=== PATIENT | male | born 1955 | race Caucasian/White ===

== ENCOUNTER → 2019-12-30 14:49 | Outpatient (BNVA) | payer MEDICARE, MEDICAID, SELFPAY | PROVIDERS: PCP Internal Medicine; Referring Provider Internal Medicine; Visit Provider Internal Medicine Cardiovascular Disease | DX: Z76.89 Persons encountering health services in other specified circumstances (principal) ==

== ENCOUNTER → 2020-01-05 20:19 | Outpatient (REF) | payer MEDICARE, MEDICAID, SELFPAY | LOC: HO.SL 20:19 | PROVIDERS: Visit Provider Internal Medicine | DX: G47.30 Sleep apnea, unspecified (principal); G47.19 Other hypersomnia | CPT/HCPCS: 95810 ==

== ENCOUNTER → 2020-01-15 12:56 | Outpatient (BNVA) | payer MEDICARE, MEDICAID, OTHER, SELFPAY | PROVIDERS: PCP Internal Medicine; Visit Provider Internal Medicine Cardiovascular Disease | DX: R42 Dizziness and giddiness (principal); I11.0 Hypertensive heart disease with heart failure; I50.814 Right heart failure due to left heart failure; I50.30 Unspecified diastolic (congestive) heart failure; I25.10 Atherosclerotic heart disease of native coronary artery without angina pectoris; I48.0 Paroxysmal atrial fibrillation; G47.30 Sleep apnea, unspecified; Z95.2 Presence of prosthetic heart valve; Z79.01 Long term (current) use of anticoagulants; Z79.82 Long term (current) use of aspirin; Z79.899 Other long term (current) drug therapy | CPT/HCPCS: 93005; 99212 ==

== ENCOUNTER 2020-01-26 14:30 | Outpatient (REF) | payer MEDICARE, MEDICAID, SELFPAY ==
[2020-01-26 15:30] LABS: Anion Gap 11 (12-20); Blood Urea Nitrogen 17 mg/dL (9-16); Calcium 8.6 mg/dL (8.4-10.2); Carbon Dioxide 33 mmol/L (22-29); Chloride 99 mmol/L (96-108); Estimated Glomerular Filt Rate > 60; Glucose Random 128 mg/dL (60-115); Potassium 3.9 mmol/l (3.3-5.1); Sodium 139 mmol/L (135-145)
[2020-01-26 15:37] LABS: B Type Natriuretic Peptide 86 pg/mL (<100)
== END 2020-01-26 14:31 | disposition home or self-care (01) ==
LOC: HO.LAB 14:30
PROVIDERS: PCP Internal Medicine; Visit Provider Internal Medicine Cardiovascular Disease
DX: I50.30 Unspecified diastolic (congestive) heart failure (principal)
CPT/HCPCS: 80048; 83880

== ENCOUNTER → 2020-02-24 11:01 | Outpatient (BNVA) | payer MEDICARE, MEDICAID, OTHER, SELFPAY | PROVIDERS: PCP Internal Medicine; Referring Provider Internal Medicine; Visit Provider Psychiatry & Neurology Neurology | DX: G47.33 Obstructive sleep apnea (adult) (pediatric) (principal); Z99.89 Dependence on other enabling machines and devices | CPT/HCPCS: Q3014 ==

== ENCOUNTER 2020-03-16 12:59 | Outpatient (REF) | payer MEDICARE, MEDICAID, SELFPAY ==
[2020-03-16 14:38] LABS: Hematocrit 42.8 % (42-52); Hemoglobin 14.1 g/dl (14.0-18.0); Mean Corpuscular HGB Conc 32.9 g/dl (31.0-36.0); Mean Corpuscular Hemoglobin 29.3 pg (27.0-33.0); Mean Platelet Volume 10.7 fL (9.4-12.4); Platelet Count 225 X10*3/uL (160-400); Red Blood Count 4.81 X10*6/uL (4.60-5.80); Red Cell Distribution Width 14.5 % (11.0-16.0)
[2020-03-16 15:08] LABS: Anion Gap 13 (12-20); Blood Urea Nitrogen 15 mg/dL (9-16); Calcium 8.8 mg/dL (8.4-10.2); Carbon Dioxide 33 mmol/L (22-29); Chloride 102 mmol/L (96-108); Estimated Glomerular Filt Rate > 60; Glucose Random 127 mg/dL (60-115); Potassium 4.2 mmol/l (3.3-5.1); Sodium 144 mmol/L (135-145)
[2020-03-16 15:10] LABS: B Type Natriuretic Peptide 124 pg/mL (<100)
== END 2020-03-16 13:00 | disposition home or self-care (01) ==
LOC: HO.LAB 12:59
PROVIDERS: PCP Internal Medicine; Visit Provider Internal Medicine Cardiovascular Disease
DX: R42 Dizziness and giddiness (principal); I50.814 Right heart failure due to left heart failure; I48.0 Paroxysmal atrial fibrillation; I25.10 Atherosclerotic heart disease of native coronary artery without angina pectoris; E66.01 Morbid (severe) obesity due to excess calories; Z68.43 Body mass index [BMI] 50.0-59.9, adult; Z79.01 Long term (current) use of anticoagulants; Z79.899 Other long term (current) drug therapy; Z95.2 Presence of prosthetic heart valve
CPT/HCPCS: 36415; 80048; 83880; 85027; 93005; 99212

== ENCOUNTER → 2020-04-27 10:35 | Outpatient (BNVA) | payer MEDICARE, MEDICAID, OTHER, SELFPAY | PROVIDERS: PCP Internal Medicine; Visit Provider Psychiatry & Neurology Neurology | DX: Z76.89 Persons encountering health services in other specified circumstances (principal) | CPT/HCPCS: Q3014 ==

== ENCOUNTER → 2020-06-08 10:43 | Outpatient (BNVA) | payer MEDICARE, MEDICAID, SELFPAY | PROVIDERS: PCP Internal Medicine; Visit Provider Psychiatry & Neurology Neurology | DX: G47.33 Obstructive sleep apnea (adult) (pediatric) (principal); I50.30 Unspecified diastolic (congestive) heart failure; I25.10 Atherosclerotic heart disease of native coronary artery without angina pectoris; I11.0 Hypertensive heart disease with heart failure; I50.814 Right heart failure due to left heart failure; I48.0 Paroxysmal atrial fibrillation; E78.5 Hyperlipidemia, unspecified; E66.01 Morbid (severe) obesity due to excess calories; Z95.1 Presence of aortocoronary bypass graft; Z95.2 Presence of prosthetic heart valve; Z98.890 Other specified postprocedural states; Z99.89 Dependence on other enabling machines and devices | CPT/HCPCS: Q3014 ==

== ENCOUNTER → 2020-08-17 10:24 | Outpatient (BNVA) | payer MEDICARE, MEDICAID, SELFPAY | PROVIDERS: PCP Internal Medicine; Visit Provider Psychiatry & Neurology Neurology | CPT/HCPCS: Q3014 ==

== ENCOUNTER → 2021-03-10 11:25 | Outpatient (BNVA) | payer MEDICARE, MEDICAID, SELFPAY | PROVIDERS: PCP Student in an Organized Health Care Education/Training Program; Visit Provider Surgery Vascular Surgery | DX: I83.11 Varicose veins of right lower extremity with inflammation (principal); I89.0 Lymphedema, not elsewhere classified | CPT/HCPCS: 99202 ==

== ENCOUNTER 2021-03-30 13:06 | Outpatient (REF) | payer MEDICARE, MEDICAID, SELFPAY ==
--- NOTE | ~2021-03-30 | US_ITS ---
EXAMINATION: US LOWER EXTREMITY VENOUS (REFLUX EXAM), BILATERAL CLINICAL INDICATION: This is a 65-year-old male with a history of right great saphenous vein stripping. Venous insufficiency. COMPARISON: None. TECHNIQUE: Color flow triplex imaging and compression Doppler was performed to evaluate both the deep and the superficial systems bilaterally. To evaluate the superficial system, the examination was performed in the upright position. Color-flow Doppler ultrasound and compression ultrasound were utilized. In addition, maneuvers were utilized to demonstrate reflux. FINDINGS: 1. DEEP VENOUS ULTRASOUND OF THE RIGHT LOWER EXTREMITY: Common Femoral Vein: Compressible, normal respiratory variation and augmented flow. Femoral vein: Compressible, normal color flow and augmentation. Popliteal Vein: Compressible, normal augmentation. Deep Reflux: There is no evidence of reflux in the deep system in either the common femoral vein or the popliteal vein. There is no evidence of a Vigil's cyst. 2. SUPERFICIAL ULTRASOUND WITH DOPPLER OF RIGHT LOWER EXTREMITY: GREAT SAPHENOUS VEIN: Absent consistent with the known removal of the right great saphenous vein. GSV REFLUX: No evidence of reflux. DUPLICATED GREAT SAPHENOUS VEIN: There is a 0.7 cm duplicated lateral great saphenous vein without reflux. SMALL SAPHENOUS VEIN: Proximal: 0.6 cm Distal: 0.5 cm SSV REFLUX: No evidence of reflux. VEIN OF GIACOMINI: None Imaged. PERFORATORS: 0.4 cm mid calf perforators are seen without reflux. VARICOSITIES: None Imaged 3. DEEP VENOUS ULTRASOUND OF THE LEFT LOWER EXTREMITY: Common Femoral Vein: Compressible, normal respiratory variation and augmented flow. Femoral Vein: Compressible, normal color flow and augmentation. Popliteal Vein: Compressible, normal augmentation. Deep Reflux: There is no evidence of reflux in the deep system in either the common femoral vein or the popliteal vein. There is no evidence of a Vigil's cyst. 4. SUPERFICIAL ULTRASOUND WITH DOPPLER OF LEFT LOWER EXTREMITY: GREAT SAPHENOUS VEIN: Saphenofemoral Junction: 0.8 cm Mid Thigh: 0.4 cm Above Knee: 0.4 cm Below Knee: 0.3 cm Mid Calf: 0.4 cm Ankle: 0.4 cm GSV REFLUX: No evidence of reflux. DUPLICATED GREAT SAPHENOUS VEIN: There is a 0.2 cm duplicated lateral great saphenous vein without reflux. SMALL SAPHENOUS VEIN: Proximal: 0.2 cm Distal: 0.2 cm SSV REFLUX: No evidence of reflux. VEIN OF GIACOMINI: None Imaged. PERFORATORS: There are 0.3 cm mid thigh perforators without reflux. VARICOSITIES: There are 0.3 cm proximal thigh and knee varicose veins without reflux. US/US venous duplex LE BI IMPRESSION: 1. The right great saphenous vein is absent consistent with the previous stripping. 2. There is a duplicated right lateral great saphenous vein without reflux. 3. There is a right small saphenous vein without reflux. 4. There is a patent left great saphenous vein without reflux. 5. There is a patent duplicated left lateral great saphenous vein without reflux. 6. There is a patent left small saphenous vein without evidence of reflux. 7. There are 0.3 cm left leg varicose veins as described without reflux.
== END 2021-03-30 13:07 | disposition home or self-care (01) ==
LOC: HO.US 13:06
PROVIDERS: Visit Provider Surgery Vascular Surgery
DX: I83.11 Varicose veins of right lower extremity with inflammation (principal)
CPT/HCPCS: 93970

== ENCOUNTER → 2021-04-07 14:03 | Outpatient (BNVA) | payer MEDICARE, MEDICAID, SELFPAY | PROVIDERS: PCP Internal Medicine; Visit Provider Surgery Vascular Surgery | DX: I89.0 Lymphedema, not elsewhere classified (principal); I83.11 Varicose veins of right lower extremity with inflammation | CPT/HCPCS: 99212 ==

== ENCOUNTER → 2021-05-10 14:57 | Outpatient (BNVA) | payer MEDICARE, MEDICAID, SELFPAY | PROVIDERS: PCP Internal Medicine; Referring Provider Internal Medicine; Visit Provider Psychiatry & Neurology Neurology | DX: G47.33 Obstructive sleep apnea (adult) (pediatric) (principal); G47.50 Parasomnia, unspecified; E66.01 Morbid (severe) obesity due to excess calories; Z68.43 Body mass index [BMI] 50.0-59.9, adult | CPT/HCPCS: 99212 ==

== ENCOUNTER → 2021-05-19 14:46 | Outpatient (REF) | payer MEDICARE, MEDICAID, SELFPAY ==
--- NOTE | 2021-05-19 14:51 | CA_ITS ---
Transthoracic Echocardiogram Patient (Last, First, Middle): Darwin Iraheta, Gender: Male Date of : 1955 Age: 65 Procedure Date: 05/19/2021 Procedure Type: Transthoracic Echocardiogram Location: OP Height: 177.8 cm Weight: 180.08 kg BSA: 2.79 m2 Heart Rate: bpm BP: 130 / 80 mmHg Vegetable Tester: IAN Referring MD: Delmer Dunlap MD Symptoms: I50.30 UNSPEC CHF Study Quality: Technically Difficult/Contrast Conclusions: - Due to markedly limited image quality, LVEF cannot be quantified. - A bioprosthetic aortic valve is present. Based on gradients, likely normal prosthetic valve function. - There is mild dilatation of the ascending aorta measuring 4.40 cm. Findings Procedure Information Contrast agent, definity, is being given per protocol without apparent complications. Left Ventricle The left ventricle was not well visualized. Normal left ventricular cavity size. There is moderately increased left ventricular wall thickness. Regional wall motion abnormalities can not be excluded due to suboptimal endocardial definition. Diastolic function is normal for age. Due to markedly limited image quality, LVEF cannot be quantified. Right Ventricle The right ventricle was not well visualized. There is mildly decreased right ventricular systolic function. Aortic Valve A bioprosthetic aortic valve is present. The aortic valve was not well visualized. The mean gradient is 8 mmHg. No significant regurgitation. Based on gradients, likely normal prosthetic valve function. Mitral Valve The mitral valve was not well visualized. No significant regurgitation or stenosis. Pulmonic Valve The pulmonic valve was not well visualized. Tricuspid Valve There is trace tricuspid valve regurgitation. The right ventricular systolic pressure may be underestimated. There is no evidence of pulmonary hypertension. Great Vessels The aorta was not well visualized. There is mild dilatation of the ascending aorta measuring 4.40 cm. Venous The inferior vena cava was not well visualized. The inferior vena cava is mildly dilated. Pericardium/Pleural No significant pericardial effusion. Prior Study Comparison No significant change compared to prior study dated: 11/18/2019. Ascending aortic dilatation has been noted before. Measurements 2D Linear Measurements IVSd: 1.32 0.6-0.9/0.6-1.0 cm LVIDd: 5.89 3.9-5.3/4.2-5.9 cm LVIDd Index: 2.11 2.4-3.2/2.2-3.1 cm/m2 LVIDs: 4.25 2.0-3.6 cm LVPWd: 1.40 0.7-1.1 cm LA Diam: 6.10 2.7-3.8/3.0-4.0 cm LAIDs Index: 2.19 1.5-2.3 cm/m2 LV Mass: 451.30 67-162/88-224 g LV Mass Index: 161.76 43-95/49-115 g/m2 LVOT Diam: 2.60 3.0+(-)1.3 cm Mitral Valve MV Pk E: 0.69 MV PK A: 0.64 MV Decel Time: 301.00 E/A: 1.10 E'Lateral: 9.57 E'Medial: 6.96 E/E' Med: 9.90 E/E' Lat: 7.20 PHT: 88.00 MVA PHT: 2.50 Decel [place]: 2.29 Aortic Valve AoV Pk Dano: 1.78 AoV Mn [place]ano: 1.34 AoV VTI: 0.37 AoV Pk Grad: 13.00 Aov Mn Grad: 8.00 DAVIDE Cont.VTI: 2.16 LVOT LVOT Pk [place]ano: 0.60 LVOT Mn [place]: 0.42 LVOT VTI: 0.15 LVOT Pk Grad: 1.00 LVOT Mn Grad: 1.00 LVOT Diam: 2.60 LVOT Area: 5.31 Diastolic Function MV Pk E: 0.69 MV Pk A: 0.64 E/A: 1.10 E'Medial: 6.96 E/E' Med: 9.90 E' Laterial: 9.57 E/E' Lat: 7.20 Right Ventricle TAPSE (mm): 16.50 TVS' Dano: 7.40 Tricuspid Valve TR Pk Dano: 1.15 TR Pk Grad: 5.00 RA Press: 8.00 RVSP: 13.00 Great Vessels Aorta Ao Asc: 4.40 2.1-3.4 cm Updated in Other Vendor System with Status of Final Yonatan Franklin MD electronically signed on 05/21/2021 11:27:55 AM with status of Final
== END ==
LOC: HO.CARD 14:46
PROVIDERS: PCP Internal Medicine; Visit Provider Internal Medicine
DX: I50.30 Unspecified diastolic (congestive) heart failure (principal)
CPT/HCPCS: 93306; Q9957

== ENCOUNTER → 2021-06-23 13:58 | Outpatient (REF) | payer MEDICARE, MEDICAID, SELFPAY ==
--- NOTE | 2021-06-23 14:04 | HM_ITS ---
* Total monitoring time 3 days and 10 hours. * Underlying rhythm is probably sinus. However, P waves are very subtle. Average rate 56/Min. Range 48 to 90/Min. * No atrial fibrillation or flutter or AV blocks or pauses (some strips have a lot of artifact to say definitively). * Rare supraventricular ectopy with minimal burden. * Occasional ventricular ectopy; 2 morphologies and 6 couplets; overall burden 1%. * No patient events. MTDD
== END ==
LOC: HO.CARD 13:58
PROVIDERS: PCP Internal Medicine; Visit Provider Internal Medicine Cardiovascular Disease
DX: I48.0 Paroxysmal atrial fibrillation (principal); I50.30 Unspecified diastolic (congestive) heart failure; R42 Dizziness and giddiness
CPT/HCPCS: 93242

== ENCOUNTER 2021-07-25 14:35 | Outpatient (REF) | payer MEDICARE, MEDICAID, SELFPAY ==
--- NOTE | ~2021-07-25 | XR_ITS ---
EXAMINATION: XR CHEST CLINICAL INFORMATION: I48.0 - Paroxysmal atrial fibrillation COMPARISON: None TECHNIQUE: 2 frontal views and 2 lateral views of the chest are obtained. FINDINGS: There is some mild underpenetration of the x-ray being, possibly related to patient body habitus. There has been prior median sternotomy with prosthetic cardiac valve, likely aortic. The cardiopericardial silhouette is mildly enlarged. There is even distribution vascularity which may suggest elevated pulmonary venous pressures. There is no overt congestion. No airspace consolidation or groundglass opacity. No effusion. The costophrenic sulci are clear. The hilar and mediastinal contours are unremarkable. There are multilevel degenerative changes thoracic spine with some loss of height at to lower adjacent thoracic vertebral bodies, possibly chronic given the bridging anterior osteophytes. XR/XR chest 2V IMPRESSION: -Prior median sternotomy with prosthetic cardiac valve, likely aortic. -Mild enlargement cardiopericardial silhouette. Even distribution vascularity. -No airspace consolidation, groundglass opacity, or effusion. -Multilevel degenerative changes thoracic spine. Loss of height lower thoracic vertebral bodies, possibly chronic given associated bridging anterior osteophytes.
[2021-07-25 16:08] LABS: Hematocrit 45.1 % (42.0-52.0); Hemoglobin 14.7 g/dl (14.0-18.0); Mean Corpuscular HGB Conc 32.6 g/dl (31.0-36.0); Mean Corpuscular Hemoglobin 29.3 pg (27.0-33.0); Mean Platelet Volume 11.1 fL (9.4-12.4); Platelet Count 196 X10*3/uL (160-400); Red Blood Count 5.01 X10*6/uL (4.60-5.80); Red Cell Distribution Width 13.5 % (11.0-16.0); White Blood Count 5.5 X10*3/uL (4.8-10.8)
[2021-07-25 16:31] LABS: Alanine Aminotransferase 32 U/L (0-40); Albumin Level 4.1 g/dL (3.5-5.0); Alkaline Phosphatase 122 U/L (39-117); Anion Gap 14 (12-20); Aspartate Amino Transferase 42 U/L (5-37); Bilirubin Direct 0.4 mg/dL (0.0-0.5); Bilirubin Total 1.2 mg/dL (0.0-1.0); Blood Urea Nitrogen 17 mg/dL (9-16); Calcium 9.3 mg/dL (8.4-10.2); Carbon Dioxide 29 mmol/L (22-29); Chloride 102 mmol/L (96-108); Estimated Glomerular Filt Rate > 60; Glucose Random 116 mg/dL (60-115); Magnesium 2.1 mg/dL (1.6-2.6); Potassium 4.3 mmol/L (3.3-5.1); Sodium 141 mmol/L (135-145); Total Protein 6.8 g/dL (6.5-8.0)
[2021-07-25 16:34] LABS: B Type Natriuretic Peptide 165 pg/mL (<100)
[2021-07-25 16:52] LABS: TSH reflex Free T4 15.74 uIU/mL (0.32-4.0)
[2021-07-25 17:52] LABS: Free T4 (Free Thyroxine) 0.86 ng/dL (0.71-1.85)
== END 2021-07-25 14:36 | disposition home or self-care (01) ==
LOC: HO.LAB 14:35
PROVIDERS: PCP Internal Medicine; Referring Provider Internal Medicine; Visit Provider Internal Medicine Cardiovascular Disease
DX: I48.0 Paroxysmal atrial fibrillation (principal); I50.30 Unspecified diastolic (congestive) heart failure
CPT/HCPCS: 36415; 71046; 80048; 80076; 83735; 83880; 84439; 84443; 85027; 93005; 99212

== ENCOUNTER 2021-12-02 13:11 | Outpatient (REF) | payer MEDICARE, MEDICAID, SELFPAY ==
--- NOTE | ~2021-12-02 | XR_ITS ---
EXAMINATION: XR CHEST CLINICAL INFORMATION: Heart failure. COMPARISON: Chest x-ray 05/25/2021. TECHNIQUE: 2 views of the chest were obtained. FINDINGS: The lungs are well expanded and clear of acute process. The heart size is enlarged. Pulmonary vascularity is prominent without congestion. There are median sternotomy sutures from previous intervention. There is a cardiac valve prosthesis, likely aortic. There is mild ventral spondylosis throughout the dorsal spine. XR/XR chest 2V IMPRESSION: Mild cardiomegaly with prominent pulmonary vascularity but no congestion. No major change from 12/02/2021.
[2021-12-02 13:42] LABS: MANUAL DIFF FLAG NO
[2021-12-02 14:36] LABS: Basophils Percent Auto 0.4 % (0-2); Eosinophils Absolute Auto 0.1 X10*3/uL (0.0-0.4); Eosinophils Percent Auto 1.8 % (0-4); Hematocrit 46.5 % (42.0-52.0); Hemoglobin 14.9 g/dl (14.0-18.0); Imm Gran Abs Auto 0.04 X10*3/uL (0.00-0.03); Imm Gran Pct Auto 0.8 % (0.0-0.4); Lymphocytes Absolute Auto 0.8 X10*3/uL (1.2-4.9); Lymphocytes Percent Auto 16.8 % (20-40); Mean Corpuscular Hemoglobin 30.3 pg (27.0-33.0); Mean Corpuscular Volume 94.5 fL (80.0-98.0); Mean Platelet Volume 10.9 fL (9.4-12.4); Monocytes Absolute Auto 0.5 X10*3/uL (0.1-1.2); Monocytes Percent Auto 9.6 % (2-11); Neutrophils Absolute Auto 3.5 x10*3/uL (2.0-8.3); Neutrophils Percent Auto 70.6 % (45-73); Platelet Count 202 X10*3/uL (160-400); Red Blood Count 4.92 X10*6/uL (4.60-5.80); Red Cell Distribution Width 13.9 % (11.0-16.0)
[2021-12-02 15:02] LABS: Anion Gap 15 (12-20); Blood Urea Nitrogen 19 mg/dL (9-16); Calcium 9.1 mg/dL (8.4-10.2); Carbon Dioxide 37 mmol/L (22-29); Chloride 98 mmol/L (96-108); Estimated Glomerular Filt Rate 53; Glucose Random 98 mg/dL (60-115); Potassium 4.6 mmol/L (3.3-5.1); Sodium 145 mmol/L (135-145)
[2021-12-02 15:22] LABS: B Type Natriuretic Peptide 97 pg/mL (<100)
== END 2021-12-02 13:12 | disposition home or self-care (01) ==
LOC: HO.LAB 13:11
PROVIDERS: Absent Provider Internal Medicine; Visit Provider Internal Medicine Cardiovascular Disease
DX: I48.0 Paroxysmal atrial fibrillation (principal); I50.30 Unspecified diastolic (congestive) heart failure; R42 Dizziness and giddiness
CPT/HCPCS: 36415; 71046; 80048; 83880; 85025

== ENCOUNTER → 2022-01-23 14:58 | Outpatient (BNVA) | payer MEDICARE, MEDICAID, SELFPAY | PROVIDERS: PCP Internal Medicine; Referring Provider Internal Medicine; Visit Provider Internal Medicine Cardiovascular Disease | DX: I50.30 Unspecified diastolic (congestive) heart failure (principal); I48.0 Paroxysmal atrial fibrillation; I25.10 Atherosclerotic heart disease of native coronary artery without angina pectoris; Z95.2 Presence of prosthetic heart valve | CPT/HCPCS: 93005; 99212 ==

== ENCOUNTER → 2022-06-27 15:57 | Outpatient (REF) | payer MEDICARE, MEDICAID, SELFPAY ==
--- NOTE | 2022-06-27 16:03 | CA_ITS ---
Transthoracic Echocardiogram Patient (Last, First, Middle): Darwin Iraheta, Gender: Male Date of : 1955 Age: 66 Procedure Date: 06/27/2022 Procedure Type: Transthoracic Echocardiogram Location: OP Height: 175.26 cm Weight: 181.44 kg BSA: 2.77 m2 Heart Rate: bpm BP: 130 / 68 mmHg Trousseau Consultant: CP/VH Referring MD: Jj Moreno MD Symptoms: I50.30 - Unspecified diastolic (congestive) heart failure Study Quality: Technically Difficult, contrast ECG Rhythm: Sinus Conclusions: - LVEF difficult to assess, but probably >50%. - Moderately increased right ventricular cavity size. - Probable bioprosthetic aortic valve based on appearance and prior documentation. Slightly increased mean gradient across the valve compared to prior study. Could have some degenerative changes, but overall normal function. Findings Procedure Information Contrast agent, definity, is being given per protocol without apparent complications. The study quality is limited by patients body habitus. Left Ventricle Normal left ventricular cavity size. There is moderately increased left ventricular wall thickness. Regional wall motion abnormalities can not be excluded due to suboptimal endocardial definition. Evidence suggests grade II (moderate) diastolic dysfunction. LVEF difficult to assess, but probably >50%. Right Ventricle The right ventricle was not well visualized. Moderately increased right ventricular cavity size. Atria The left atrium is severely dilated. The right atrium was not well visualized. Aortic Valve The aortic valve was not well visualized. The mean gradient is 12 mmHg. There is no aortic valve regurgitation. Probable bioprosthetic aortic valve based on appearance and prior documentation. Slightly increased mean gradient across the valve compared to prior study. Could have some degenerative changes, but overall normal function. Mitral Valve The mitral valve was not well visualized. There is no mitral valve regurgitation. Pulmonic Valve The pulmonic valve is likely normal. Tricuspid Valve The tricuspid valve was not well visualized. There is trace tricuspid valve regurgitation. Tricuspid regurgitation envelope is inadequate for calculation of right ventricular systolic pressure. Great Vessels The aorta was not well visualized. Venous The inferior vena cava was not well visualized. Pericardium/Pleural There is no evidence of pericardial effusion. Prior Study Comparison Changes noted compared to prior study dated: 05/19/2021. Slight increase in gradient across the prosthetic aortic valve. Measurements 2D Linear Measurements IVSd: 1.44 0.6-0.9/0.6-1.0 cm LVIDd: 5.24 3.9-5.3/4.2-5.9 cm LVIDd Index: 1.89 2.4-3.2/2.2-3.1 cm/m2 LVIDs: 4.10 2.0-3.6 cm LVPWd: 1.28 0.7-1.1 cm LA Diam: 5.30 2.7-3.8/3.0-4.0 cm LAIDs Index: 1.91 1.5-2.3 cm/m2 LV Mass: 374.90 67-162/88-224 g LV Mass Index: 135.34 43-95/49-115 g/m2 LVOT Diam: 2.60 3.0+(-)1.3 cm 2D Systolic Function EF 4C: 65.80 >55% EF 2C: 46.30 >55% EF BiP: 60.20 >55% Mitral Valve MV Pk E: 0.88 MV PK A: 0.63 MV Decel Time: 273.00 E/A: 1.40 E'Lateral: 9.68 E'Medial: 4.46 E/E' Med: 19.60 E/E' Lat: 9.00 PHT: 80.00 MVA PHT: 2.75 Decel [place]: 3.21 Aortic Valve AoV Pk Dano: 2.31 AoV Mn Dano: 1.61 AoV VTI: 0.54 AoV Pk Grad: 21.00 Aov Mn Grad: 12.00 DAVIDE Cont.VTI: 1.57 LVOT LVOT Pk Dano: 0.62 LVOT Mn Dano: 0.46 LVOT VTI: 0.16 LVOT Pk Grad: 2.00 LVOT Mn Grad: 1.00 LVOT Diam: 2.60 LVOT Area: 5.31 Diastolic Function MV Pk E: 0.88 MV Pk A: 0.63 E/A: 1.40 E'Medial: 4.46 E/E' Med: 19.60 E' Laterial: 9.68 E/E' Lat: 9.00 Updated in Other Vendor System with Status of Final Yonatan Franklin MD electronically signed on 06/28/2022 12:14:15 PM with status of Final
== END ==
LOC: HO.CARD 15:57
PROVIDERS: PCP Internal Medicine; Visit Provider Internal Medicine Cardiovascular Disease
DX: I50.30 Unspecified diastolic (congestive) heart failure (principal)
CPT/HCPCS: 93306; Q9957

== ENCOUNTER → 2022-07-25 14:24 | Outpatient (BNVA) | payer MEDICARE, MEDICAID, SELFPAY | PROVIDERS: PCP Internal Medicine; Referring Provider Internal Medicine; Visit Provider Internal Medicine Cardiovascular Disease | DX: I48.0 Paroxysmal atrial fibrillation (principal); I50.30 Unspecified diastolic (congestive) heart failure; I25.10 Atherosclerotic heart disease of native coronary artery without angina pectoris; Z95.2 Presence of prosthetic heart valve; Z79.82 Long term (current) use of aspirin; Z79.899 Other long term (current) drug therapy | CPT/HCPCS: 99212 ==

== ENCOUNTER 2022-11-16 11:23 | Outpatient (REF) | payer MEDICARE, MEDICAID, SELFPAY ==
[2022-11-16 14:47] LABS: Anion Gap 13 (12-20); Blood Urea Nitrogen 15 mg/dL (9-16); Calcium 9.5 mg/dL (8.4-10.2); Carbon Dioxide 39 mmol/L (22-29); Chloride 96 mmol/L (96-108); Estimated Glomerular Filt Rate > 60; Glucose Fasting 123 mg/dL (60-99); Potassium 3.9 mmol/L (3.3-5.1); Sodium 144 mmol/L (135-145)
[2022-11-16 15:08] LABS: TSH reflex Free T4 0.94 uIU/mL (0.32-4.0)
== END 2022-11-16 11:24 | disposition home or self-care (01) ==
LOC: CF 11:23
PROVIDERS: Visit Provider Internal Medicine
DX: E03.8 Other specified hypothyroidism (principal); I50.32 Chronic diastolic (congestive) heart failure
CPT/HCPCS: 36415; 80048; 84443

== ENCOUNTER 2023-04-02 14:21 | Outpatient (REF) | payer MEDICARE, MEDICAID, SELFPAY ==
--- NOTE | ~2023-04-02 | XR_ITS ---
EXAMINATION: XR CHEST CLINICAL INFORMATION: Paroxysmal atrial fibrillation COMPARISON: 12/02/2021 TECHNIQUE: 2 views of the chest were obtained. FINDINGS: Heart size borderline with normal caliber pulmonary vessels. No congestive change. Minimal areas of atelectasis seen in the left midlung but no suspicious consolidations. No evidence for congestive failure.. Prosthetic cardiac valve noted. Sternal wires noted. XR/XR chest 2V IMPRESSION: No active disease. No evidence for congestive failure.
[2023-04-02 16:15] LABS: Hematocrit 34.9 % (42.0-52.0); Hemoglobin 10.8 g/dl (14.0-18.0); Mean Corpuscular HGB Conc 30.9 g/dl (31.0-36.0); Mean Corpuscular Hemoglobin 28.2 pg (27.0-33.0); Mean Corpuscular Volume 91.1 fL (80.0-98.0); Mean Platelet Volume 11.2 fL (9.4-12.4); Platelet Count 164 X10*3/uL (160-400); Red Blood Count 3.83 X10*6/uL (4.60-5.80); Red Cell Distribution Width 13.3 % (11.0-16.0); White Blood Count 4.7 X10*3/uL (4.8-10.8)
[2023-04-02 16:44] LABS: B Type Natriuretic Peptide 101 pg/mL (<100)
[2023-04-02 16:48] LABS: Alanine Aminotransferase 11 U/L (0-40); Albumin Level 3.9 g/dL (3.5-5.0); Alkaline Phosphatase 102 U/L (39-117); Anion Gap 11 (12-20); Aspartate Amino Transferase 20 U/L (5-37); Bilirubin Direct 0.2 mg/dL (0.0-0.5); Bilirubin Total 0.7 mg/dL (0.0-1.0); Blood Urea Nitrogen 16 mg/dL (9-16); Calcium 9.2 mg/dL (8.4-10.2); Carbon Dioxide 39 mmol/L (22-29); Chloride 98 mmol/L (96-108); Estimated Glomerular Filt Rate > 60; Glucose Random 108 mg/dL (60-115); Magnesium 2.2 mg/dL (1.6-2.6); Potassium 3.9 mmol/L (3.3-5.1); Sodium 144 mmol/L (135-145); Total Protein 6.8 g/dL (6.5-8.0)
[2023-04-02 17:04] LABS: TSH reflex Free T4 0.16 uIU/mL (0.32-4.0)
[2023-04-02 18:06] LABS: Free T4 (Free Thyroxine) 1.37 ng/dL (0.71-1.85)
== END 2023-04-02 14:22 | disposition home or self-care (01) ==
LOC: HO.LAB 14:21
PROVIDERS: PCP Internal Medicine; Visit Provider Internal Medicine Cardiovascular Disease
DX: I50.30 Unspecified diastolic (congestive) heart failure (principal); I48.0 Paroxysmal atrial fibrillation; I25.10 Atherosclerotic heart disease of native coronary artery without angina pectoris; Z95.2 Presence of prosthetic heart valve; Z79.899 Other long term (current) drug therapy
CPT/HCPCS: 36415; 71046; 80048; 80076; 83735; 83880; 84439; 84443; 85027; 93005; 99212

== ENCOUNTER 2023-04-02 14:21 | Outpatient (AMB) | payer MEDICARE, MEDICAID, SELFPAY ==
[2023-04-02 14:36] VITALS: BP 122/70; PULSE 60
--- NOTE | 2023-04-02 14:36 | MHC.OFFVIS ---
Intake Vital Signs 04/02/23 14:36 Height 5 ft 10 in BP 122/70 Blood Pressure Location Lt brachial Position Sitting Pulse 60 Intake Visit Reasons: 6 month follow-up Intake Note: 6 month follow-up with ekg c/o chest pain at at times and numbness in left hand Teacher Tutor Required: No Motor Vehicle Licence Examiner: Motor Vehicle Licence Examiner Present Accompanied by: Spouse Allergies No Known Allergies [No Known Allergies*] Allergy (Verified 05/10/21 15:28) Medication List - Last Reconciled 04/02/23 by Jj Moreno MD amiodarone 200 mg PO DAILY aspirin 81 mg PO QAM atorvastatin 80 mg PO DAILY ferrous sulfate 325 mg PO QAM lisinopril 5 mg PO QAM 90 days metoprolol succinate ER 25 mg PO QAM multivitamin with folic acid 400 mcg (Daily-Abigail (with folic acid)) 1 tab PO DAILY pantoprazole 40 mg PO DAILY paroxetine HCl 20 mg PO DAILY potassium chloride ER 30 mEq PO torsemide 40 mg (2 x 20 mg) PO BID 90 days HPI HPI Comments History of Present Illness Details Darwin comes for follow-up, accompanied by his . He has had poor lifestyle choices recently. Has increase his salt intake. Also has not been exercising much and has increased his dietary intake of food and has gained weight. He is also has increased leg swelling. He has also not using his CPAP regularly. He is taking his current medications although has notice that his leg swelling has increased significantly. He has been taking his torsemide 40 mg b.i.d. on a regular basis. Denies any chest pain. [facility] Medical History Parasomnia Hyperlipidemia HTN (hypertension) STACEY (obstructive sleep apnea) Right heart failure (secondary to left heart failure) Paroxysmal atrial fibrillation Morbid obesity (HFpEF) heart failure with preserved ejection fraction CAD (coronary artery disease) Surgical History S/P AVR Hx of CABG (~2017) Hx of cardiac cath (~2003) History of surgery on arm (~2017) Family History Father CVD (cardiovascular disease) Mother Cancer Social History Household Members: Spouse Alcohol intake: current Alcohol intake frequency: does not drink Patient Tobacco Use Status: Former Tobacco user Current occupational status: retired and disabled Review of Systems Const Denies chills, Denies fatigue, Denies fever(s), Denies frequent falls, Denies weakness, Denies weight gain and Denies weight loss ENT Denies dizziness Card Denies chest pain, Denies leg edema, Denies lightheadedness, Denies palpitations, Denies dyspnea, Denies dyspnea on exertion, Denies orthopnea and Denies other (loss of consciousness) Resp Denies cough, Denies dyspnea and Denies dyspnea on exertion GI Denies hematochezia and Denies change in stool character Musc Denies abnormal gait, Denies muscle weakness, Denies numbness, Denies radiating pain into limb and Denies tingling Neuro Denies abnormal gait, Denies dizziness, Denies frequent falls, Denies numbness, Denies tingling and Denies weakness Endo Denies fatigue and Denies palpitations Physical Exam Vital Signs: Last Vital Signs Pulse 60 04/02/23 14:36 BP 122/70 04/02/23 14:36 Const General: cooperative, comfortable, no acute distress, awake, Physically active, poor hygiene and tired appearing Nutritional Appearance: obese morbidly obese Orientation/consciousness: patient oriented x3 Limitations: wheelchair HEENT Head: Yes normocephalic and Yes atraumatic Neck Neck: Yes no meningeal signs, Yes trachea midline and Yes JVD Chest Chest palpation & inspection: normal inspection of the chest Resp Effort & Inspection: normal respiratory effort Auscultation: clear to auscultation bilaterally and diminished lung sounds Cardio Jugular venous distension: JVD Palpation: normal PMI Rate: regular rate Rhythm: regular rhythm Heart sounds: S1 normal heart sound present, S2 normal heart sound present and Other heart sounds present (S4 present) Skin General skin exam: no rashes or lesions noted and ecchymosis Neuro General: patient oriented x3, no meningeal signs and no focal motor deficits Extrem General: No clubbing, No cyanosis, Yes edema (Three to 4+) and Yes venous stasis dermatitis Psych Appearance: grossly normal Office Procedures EKG Details: EKG shows normal sinus rhythm with low-amplitude P waves consistent with atrial myopathy with first-degree AV block with ST T wave changes showed nonspecific and suggestive of repolarization abnormality [id number], Complete Assessment & Plan Assessment & Plan (1) (HFpEF) heart failure with preserved ejection fraction: Code(s): I50.30 - Unspecified diastolic (congestive) heart failure Plan: Heart failure preserved ejection fraction high doses of diuretics at this point time with worsening right heart failure syndrome with clinical evidence of significant fluid overload. Management of this was discussed. He has been making some poor lifestyle choices with increased salt intake and also increase dietary food intake and has gained weight. However he appears to be fluid overloaded and risk of this was discussed with recurrent hospitalization. Goals of therapy were discussed. Will add metolazone 2.5 mg p.r.n. to his regimen to assist with diuresis and weight loss. May have been developing cardiorenal syndrome as well. Will obtain blood work today. Importance of dietary modification as well as current therapy was discussed. Continue CPAP therapy. Continue aggressive blood pressure control. Aggressive weight loss program and increase activity level was also discussed with him. (2) Paroxysmal atrial fibrillation: Code(s): I48.0 - Paroxysmal atrial fibrillation Plan: Paroxysmal atrial fibrillation status post rhythm management amiodarone therapy. Doing well with the same. Continue to monitor for the same. Currently only on aspirin therapy for anticoagulation. High risk for thromboembolic complication was discussed with him. (3) CAD (coronary artery disease): Code(s): I25.10 - Atherosclerotic heart disease of [place] coronary artery without angina pectoris Plan: CAD status post coronary artery bypass grafting with no symptoms suggestive angina although this may be mask because of his reduced exercise capacity. Continue aggressive risk factor modification. Blood pressure is well optimized. Should be on high-intensity statin therapy with target goal LDL closer to 60 mg/dL. (4) S/P AVR: Comment: surgical AVR in 2020 with redo open heart surgery at [facility] for progressive severe congestive heart failure syndrome Code(s): Z95.2 - Presence of prosthetic heart valve Plan: Status post aortic valve replacement with open-heart surgery with redo AVR. Doing well at this point time. Continue SBE prophylaxis. Continue aggressive vascular risk factor modification aspirin therapy. Overall prognosis guarded with his lifestyle choices. This was discussed with him. Greater than 40 minutes was spent in managing his complex care. Orders: Orders Complete Blood Count no Diff 04/02/23 I48.0 - Paroxysmal atrial fibrillation Magnesium 04/02/23 I48.0 - Paroxysmal atrial fibrillation, I50.30 - Unspecified diastolic (congestive) heart failure B Type Natriuretic Peptide 04/02/23 I48.0 - Paroxysmal atrial fibrillation Basic Metabolic Panel 04/02/23 I48.0 - Paroxysmal atrial fibrillation TSH reflex Free T4 04/02/23 I48.0 - Paroxysmal atrial fibrillation Liver Panel 04/02/23 I48.0 - Paroxysmal atrial fibrillation XR chest 2V 04/02/23 I48.0 - Paroxysmal atrial fibrillation Coding Level of Care Code Est Pt Level 5 (87572) Diagnoses (HFpEF) heart failure with preserved ejection fraction I50.30 Paroxysmal atrial fibrillation I48.0 CAD (coronary artery disease) I25.10 S/P AVR Z95.2 CPT Codes EKG - CPT: 68777-[id number], Complete ([id number])
== END 2023-04-02 15:21 | disposition home or self-care (01) ==
PROVIDERS: PCP Internal Medicine; Visit Provider Internal Medicine Cardiovascular Disease
DX: I50.30 Unspecified diastolic (congestive) heart failure (principal); I48.0 Paroxysmal atrial fibrillation; I25.10 Atherosclerotic heart disease of native coronary artery without angina pectoris; Z95.2 Presence of prosthetic heart valve
CPT/HCPCS: 93010; 99215

== ENCOUNTER 2023-10-24 10:18 | Outpatient (AMB) | payer MEDICARE, MEDICAID, SELFPAY ==
[2023-10-24 10:45] VITALS: BP 132/68; PULSE 67; BMI 57.2
--- NOTE | 2023-10-24 10:45 | A.OFFVIS_ITS ---
Vital Signs 10/24/23 10:45 Height 5 ft 10 in Weight 399 lb 0.587 oz BMI 57.2 BP 132/68 Blood Pressure Location Lt brachial Position Sitting Pulse 67 Pulse Source Monitor Intake Visit Reasons: 6 mth f/up Allergies No Known Allergies [No Known Allergies*] Allergy (Verified 05/10/21 15:28) Medication List - Last Reconciled 10/24/23 by Jj Moreno MD amiodarone 200 mg PO DAILY aspirin 81 mg PO QAM atorvastatin 80 mg PO DAILY ferrous sulfate 325 mg PO QAM lisinopril 5 mg PO QAM 90 days metolazone 2.5 mg PO .PRN metoprolol succinate ER 25 mg PO QAM multivitamin with folic acid 400 mcg (Daily-Abigail (with folic acid)) 1 tab PO DAILY pantoprazole 40 mg PO DAILY paroxetine HCl 20 mg PO DAILY potassium chloride ER 30 mEq PO torsemide 40 mg (2 x 20 mg) PO BID HPI Comments Details: Darwin comes for follow-up. He is here for a 6 month follow-up is heart condition. Unfortunately there has been a trend going downward. He said in the last 6 months he has had few falls, that led to injury to his left rib after falling down. He is not very clear as to what happens although he said that he gets wobbly and then blacks out. Does not remember falling. Not sure if he had any head injury. He was then brought to the emergency room and as per the put him in a rehab center in [place] which was very poor. Unfortunately not sure if he has syncopal episodes and gets orthostatic lightheadedness. This history is very difficult to obtain from him. He does take his diuretics torsemide at 40 mg b.i.d. but does not want to take metolazone due to excessive diuresis. Continues to have leg edema although as per the the leg edema improves when he is laying in bed and raises his leg and gets worse when he is in leg dependent position. Unfortunately he does not use his CPAP as he says that he gets vivid nightmares when he uses CPAP in the result has significant daytime somnolence as per the . Although he continues to have good food intake and as a result has gained a lot of weight. Not sure if this partially is fluid weight gain. This is difficult to assess in his case. Denies any clear orthopnea. Denies any chest pain. Denies any prolonged palpitation irregular heartbeat. No bleeding issues or neurologic events PFSH Medical History Parasomnia Hyperlipidemia HTN (hypertension) STACEY (obstructive sleep apnea) Right heart failure (secondary to left heart failure) Paroxysmal atrial fibrillation Morbid obesity (HFpEF) heart failure with preserved ejection fraction CAD (coronary artery disease) Surgical History S/P AVR Hx of CABG (~2017) Hx of cardiac cath (~2003) History of surgery on arm (~2017) Family History Father CVD (cardiovascular disease) Mother Cancer Social History Household Members: Spouse Alcohol intake: current Alcohol intake frequency: does not drink Patient Tobacco Use Status: Former Tobacco user Current occupational status: retired and disabled Review of Systems Const Denies weakness ENT Denies dizziness Card Denies chest pain, Denies chest pain with activity, Denies syncope, Denies rapid heart rate, Denies pedal edema, Denies edema, Denies leg edema, Denies lightheadedness, Denies palpitations, Denies dyspnea, Denies dyspnea on exertion and Denies orthopnea Resp Denies cough, Denies dyspnea and Denies dyspnea on exertion GI Denies hematochezia and Denies change in stool character Musc Denies abnormal gait, Denies muscle cramps, Denies muscle weakness, Denies numbness, Denies radiating pain into limb and Denies tingling Neuro Denies abnormal gait, Denies dizziness, Denies syncope, Denies numbness, Denies tingling and Denies weakness Endo Denies palpitations Physical Exam Vital Signs: Last Vital Signs Pulse 67 10/24/23 10:45 BP 132/68 10/24/23 10:45 BMI result Body Mass Index 57.2 Const General: cooperative, comfortable, alert, awake and poor hygiene Nutritional Appearance: obese morbidly obese Orientation/consciousness: patient oriented x3 Limitations: wheelchair Neck Neck: Yes trachea midline, Yes supple and Yes other (Difficult to evaluate JVD) Resp Effort & Inspection: decreased respiratory effort Auscultation: clear to auscultation bilaterally and diminished lung sounds Cardio Heart sounds: S1 normal heart sound present, S2 normal heart sound present, no click, no gallops, Murmur heart sound present systolic early and no rubs Skin General skin exam: no rashes or lesions noted Neuro General: patient oriented x3 and no focal motor deficits Extrem General: No clubbing, No cyanosis and Yes edema (3+ edema with mostly l ymphedema, below knee) Office Procedures EKG Details: EKG shows normal sinus rhythm with first-degree AV block with lateral T-wave changes most likely suggestive of repolarization abnormality with low-voltage QRS with low-voltage P waves suggestive of atrial myopathy [id number], Complete Assessment & Plan Assessment & Plan (1) (HFpEF) heart failure with preserved ejection fraction: Code(s): I50.30 - Unspecified diastolic (congestive) heart failure Category: Medical Plan: Heart failure preserved ejection fraction this elderly gentleman with multiple cardiac comorbidities. His main issue currently is significant obesity and intolerance to CPAP therapy. Is minimally function at this point time. Very difficult to assess fluid status and him although he has not had any hospitalization to treat heart failure in the last 6 months. Continue current torsemide dose. Discussed about daily weight monitoring, not sure if he is able to do this and if significant weight gain she would use metolazone therapy. He is very resistant to metolazone use. Continue aggressive blood pressure cont rol. Continue rhythm control approach which has helped him as well. He urgently knees treatment for sleep apnea as well as significant weight reduction. He said he will try. Discussed with about dietary restriction. I am not sure he is able to mobilize himself significantly to participate in regular physical activity. (2) S/P AVR: Comment: surgical AVR in 2020 with redo open heart surgery at [facility] for progressive severe congestive heart failure syndrome Code(s): Z95.2 - Presence of prosthetic heart valve Category: Surgical Plan: Surgical aortic valve replacement in [place] for severe aortic stenosis. Patient has normally function valve at this point time. Currently on low-dose aspirin therapy. Continue aggressive blood pressure control though appears that he has episodes of loss of consciousness could be orthostatic hypotension although this is unclear. Blood pressure today is well optimized. Will discontinue lisinopril therapy. Continue metoprolol therapy. Continue high-intensity statin therapy with target goal LDL closer to 60 mg/dL. (3) Paroxysmal atrial fibrillation: Code(s): I48.0 - Paroxysmal atrial fibrillation Category: Medical Plan: Paroxysmal atrial fibrillation which has remained suppressed on amiodarone therapy. Unfortunately needs to be continued given his multiple comorbidities is high risk for recurrent atrial fibrillation leading to further cardiac decompensation. Continue amiodarone therapy. Annual check for amiodarone toxicity with LFTs, thyroid profile as well as lung function chest x-ray should be pursued. Currently not on oral anticoagulation therapy which increase risk of thromboembolic complication. (4) CAD (coronary artery disease): Code(s): I25.10 - Atherosclerotic heart disease of [place] coronary artery without angina pectoris Category: Medical Plan: CAD status post coronary artery bypass grafting with no recurrent symptoms suggestive of angina although with very restrictive physical capacity. Continue blood pressure control, see above to discontinue lisinopril therapy due to recurrent black out episodes. Continue metoprolol therapy. Continue high- intensity statin therapy. No further workup is indicated this point time. (5) Morbid obesity: Code(s): E66.01 - Morbid (severe) obesity due to excess calories Category: Medical Plan: Patient's significant obesity which is markedly limiting his overall functionality. Discussed with him about management of this. Decreased dietary intake should be started. Consider bariatric surgery consultation. Also require CPAP treatment which she is not able to tolerate. Overall prognosis is poor and guarded. Will follow up in 6 months time, sooner p.r.n.. Greater than 45 minutes was spent in managing his complex care. Medications: Discontinued lisinopril Please call and schedule your cardiology follow-up Discontinued Reason: Doctor's Order 5 mg PO QAM 90 days 90 tabs 1RF Coding Level of Care Code Est Pt Level 5 (95774) Diagnoses (HFpEF) heart failure with preserved ejection fraction I50.30 S/P AVR Z95.2 Paroxysmal atrial fibrillation I48.0 CAD (coronary artery disease) I25.10 Morbid obesity E66.01 CPT Codes EKG - CPT: 23971-[id number], Complete ([id number])
== END 2023-10-24 11:23 | disposition home or self-care (01) ==
PROVIDERS: PCP Internal Medicine; Visit Provider Internal Medicine Cardiovascular Disease
DX: I50.30 Unspecified diastolic (congestive) heart failure (principal); I48.0 Paroxysmal atrial fibrillation; I25.10 Atherosclerotic heart disease of native coronary artery without angina pectoris; Z95.2 Presence of prosthetic heart valve; E66.01 Morbid (severe) obesity due to excess calories; Z68.43 Body mass index [BMI] 50.0-59.9, adult; I44.0 Atrioventricular block, first degree
CPT/HCPCS: 93010; 99215

== ENCOUNTER → 2023-10-24 10:18 | Outpatient (BNVA) | payer MEDICARE, MEDICAID, SELFPAY | PROVIDERS: PCP Internal Medicine; Visit Provider Internal Medicine Cardiovascular Disease | DX: I11.0 Hypertensive heart disease with heart failure (principal); I50.30 Unspecified diastolic (congestive) heart failure; I48.0 Paroxysmal atrial fibrillation; I25.10 Atherosclerotic heart disease of native coronary artery without angina pectoris; E66.01 Morbid (severe) obesity due to excess calories; Z68.43 Body mass index [BMI] 50.0-59.9, adult; Z95.2 Presence of prosthetic heart valve | CPT/HCPCS: 93005; 99212 ==

== ENCOUNTER 2024-03-31 11:14 | Outpatient (REF) | payer MEDICARE, MEDICAID, SELFPAY ==
[2024-03-31 14:29] LABS: MANUAL DIFF FLAG NO
[2024-03-31 14:34] LABS: Basophils Percent Auto 0.5 % (0-2); Eosinophils Absolute Auto 0.1 X10*3/uL (0.0-0.4); Eosinophils Percent Auto 1.5 % (0-4); Hematocrit 37.2 % (42.0-52.0); Hemoglobin 11.3 g/dl (14.0-18.0); Imm Gran Abs Auto 0.02 X10*3/uL (0.00-0.03); Imm Gran Pct Auto 0.5 % (0.0-0.4); Lymphocytes Absolute Auto 0.7 X10*3/uL (1.2-4.9); Lymphocytes Percent Auto 18.6 % (20-40); Mean Corpuscular HGB Conc 30.4 g/dl (31.0-36.0); Mean Corpuscular Hemoglobin 27.7 pg (27.0-33.0); Mean Corpuscular Volume 91.2 fL (80.0-98.0); Mean Platelet Volume 12.2 fL (9.4-12.4); Monocytes Absolute Auto 0.4 X10*3/uL (0.1-1.2); Monocytes Percent Auto 10.8 % (2-11); Neutrophils Absolute Auto 2.7 x10*3/uL (2.0-8.3); Neutrophils Percent Auto 68.1 % (45-73); Platelet Count 175 X10*3/uL (160-400); Red Blood Count 4.08 X10*6/uL (4.60-5.80); Red Cell Distribution Width 14.6 % (11.0-16.0)
[2024-03-31 14:47] LABS: Anion Gap 13 (12-20); Blood Urea Nitrogen 18 mg/dL (9-16); Calcium 9.4 mg/dL (8.4-10.2); Carbon Dioxide 38 mmol/L (22-29); Chloride 98 mmol/L (96-108); Estimated Glomerular Filt Rate 59; Glucose Random 129 mg/dL (60-115); Sodium 145 mmol/L (135-145)
== END 2024-03-31 11:15 | disposition home or self-care (01) ==
LOC: HO.CHCLDS 11:14
PROVIDERS: Visit Provider Internal Medicine
DX: I50.9 Heart failure, unspecified (principal)
CPT/HCPCS: 36415; 80048; 85025

== ENCOUNTER 2024-04-04 12:56 | Outpatient (AMB) | payer MEDICARE, MEDICAID, SELFPAY ==
--- NOTE | 2024-04-04 12:59 | A.OFFVIS_ITS ---
Vital Signs 04/04/24 13:01 Height 5 ft 10 in Weight 378 lb 0.2 oz BMI 54.2 BP 120/62 Blood Pressure Location Lt brachial Position Sitting Pulse 61 Pulse Source Monitor Intake Visit Reasons: follow-up [facility] chf Tank Furnace Operator Required: No Metal Spray Operator: Metal Spray Operator Present Allergies No Known Allergies [No Known Allergies*] Allergy (Verified 04/04/24 13:04) HPI HPI follow-up [facility] chf: Details: Darwin is a 68-year-old male past medical history of hypertension, hyperlipidemia, sleep apnea, morbid obesity, heart failure with preserved EF, CAD, 4 vessel Coronary artery bypass grafting, bioprosthetic aortic valve replacement, paroxysmal atrial fibrillation who was recently admitted to [facility] for shortness of breath, fluid overload. He was treated for acute on chronic heart failure with preserved EF and hypoxic respiratory failure. He was admitted for 2 weeks and diuresed significantly. He was discharged on torsemide 60 mg in the a.m. and 40 mg in the p.m.. Today he reports he has been doing well since his hospital discharge. He has been monitoring his weight daily and finds that he is still losing some. He has visiting nurse services and home PT and OT. He is mostly sedentary. His states that he is supposed to do his exercise after the therapist leave but he never does. His breathing is currently stable. He has shortness of breath with movement. He wears oxygen with nasal cannula, continually. No chest discomfort, heart palpitations, lightheadedness, presyncope, syncope. He has chronic leg edema reports they are currently looking good. He does not use a CPAP mask. He has been taking his meds as directed. His is present and assists with his care. 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 failure) Paroxysmal atrial fibrillation Morbid obesity (HFpEF) heart failure with preserved ejection fraction CAD (coronary artery disease) Surgical History S/P AVR Hx of CABG (~2018) Hx of cardiac cath (~2003) History of surgery on arm (~2017) Family History Father CVD (cardiovascular disease) Mother Cancer Social History Household Members: Spouse Alcohol intake: current Alcohol intake frequency: does not drink Patient Tobacco Use Status: Former Tobacco user Current occupational status: retired and disabled Review of Systems Const Details: falls asleep easily All systems reviewed & are unremarkable except as noted in HPI and below ENT Denies dizziness Card Details: wearing O2 3 liters Denies chest pain, Denies chest pain at rest, Denies chest pain with activity, Denies rapid heart rate, Denies pedal edema, Denies edema, Denies leg edema, Denies lightheadedness, Denies palpitations, Denies dyspnea, Reports dyspnea on exertion and Denies orthopnea Resp Denies cough, Denies dyspnea and Reports dyspnea on exertion GI Denies hematochezia and Denies change in stool character Musc Reports abnormal gait, Reports limited range of motion, Denies muscle cramps, Reports muscle weakness, Denies numbness, Denies radiating pain into limb, Denies stiffness and Denies tingling Neuro Reports abnormal gait, Denies dizziness, Denies numbness and Denies tingling Endo Denies palpitations Physical Exam Vital Signs: Last Vital Signs Pulse 61 04/04/24 13:01 BP 120/62 04/04/24 13:01 BMI result Body Mass Index 54.2 Const Other: morbildly obese, sitting in wheelchair General: cooperative and no acute distress Orientation/consciousness: patient oriented x3 Neck Neck: Yes normal visual inspection Resp Other: O2 3liters with nasal cannula Effort & Inspection: normal respiratory effort (diminished lung sounds) Auscultation: clear to auscultation bilaterally, no rales, no rhonchi and no wheezes Cardio Rate: regular rate Rhythm: regular rhythm Heart sounds: S1 normal heart sound present, S2 normal heart sound present, no murmurs and no rubs Neuro General: patient oriented x3 Extrem Other: nonpitting edema of lower extremities Psych Mental Status: mental status grossly normal Office Procedures EKG Details: Today, read by me, sinus rhythm, first-degree AV block, nonspecific ST and T- wave abnormality, rate 61, QTC 412 millisecond [id number], Complete Assessment & Plan Assessment & Plan (1) (HFpEF) heart failure with preserved ejection fraction: Code(s): I50.30 - Unspecified diastolic (congestive) heart failure Category: Medical Plan: Recent [facility] admission for heart failure with preserved EF. He was diuresed over 2 week period and tells me he lost significant weight. He has been monitoring his weight at home since that time and tells me he continues to lose. On d ischarge his torsemide was increased to 60 mg in the a.m. and 40 mg in the p.m. (up from 40). Last echo in our system, 06/27/2022 showed EF greater than 50%, bioprosthetic AVR appears to be functioning normally, ascending aorta 4.4 cm. Will check [facility] records to see if he had echocardiogram while inpatient. He is morbidly obese making clinical assessment more challenging. His lungs are clear on exam. He is wearing oxygen with 3 L and tells me his breathing is comfortable. His home blood pressures have been elevated with systolics frequently between 140 and 160. I am questioning if the blood pressure check today in our office is accurate. His [facility] discharge includes lisinopril 10 mg daily. They tell me he is not on lisinopril and was never given a script. Prior note from Dr. Moreno reviewed and he had been on lisinopril 5 mg daily previously however was stopped due to concern for blackout episodes. In speaking with his he does not lose consciousness he seems to fall asleep randomly then wakes back up. This is consistent with his untreated sleep apnea. I will restart him on lisinopril 5 mg daily. Plan for BMP in 2 weeks. If he has not had an an echocardiogram since 06/2022 I will update 1 prior to his next visit. Cardiology follow-up in 3-4 months to re- evaluate heart failure, blood pressure, meds. (2) Paroxysmal atrial fibrillation: Code(s): I48.0 - Paroxysmal atrial fibrillation Category: Medical Plan: History of paroxysmal atrial fibrillation. Currently suppressed with amiodarone 200 mg daily. Notes from [facility] discharge reviewed and he did have some PAF while there. EKG done today showing sinus rhythm with first-degree AV block, nonspecific ST and T-wave abnormality, rate 61, QTC 412 milliseconds. He is not noticing any heart palpitations. Labs from 04/02/2023 showed AST 20, ALT 11, TSH 0.16. He is on levothyroxine. Will enter orders for liver panel, TSH for amiodarone monitoring. He is on Xarelto for anticoagulation. No bleeding issues reported. Labs done 03/31/2024 showed creatinine 1.21, hemoglobin 11.3. (3) HTN (hypertension): Code(s): I10 - Essential (primary) hypertension Category: Medical Plan: As above (4) CAD (coronary artery disease): Code(s): I25.10 - Atherosclerotic heart disease of [place] coronary artery without angina pectoris Category: Medical Plan: Stable at present with no reports of anginal sounding symptoms. EKG done today showing sinus rhythm with first-degree AV block, nonspecific ST and T-wave abnormality, rate 61. He is on aspirin as well as Xarelto. No bleeding issues reported. Will continue aspirin at this time. Continue high-dose atorvastatin with ideal LDL goal less than 70. No recent lipids in our system. Will add to next lab draw. (5) Hx of CABG: Onset Date: ~2017 Comment: 2004, KIRAN to LAD, SVG to diagonal, RPLV and RPDA Code(s): Z95.1 - Presence of aortocoronary bypass graft Category: Surgical (6) S/P AVR: Comment: surgical AVR in 2020 with redo open heart surgery at [facility] for progressive severe congestive heart failure syndrome Code(s): Z95.2 - Presence of prosthetic heart valve Category: Surgical (7) STACEY (obstructive sleep apnea): Code(s): G47.33 - Obstructive sleep apnea (adult) (pediatric) Category: Medical Plan: Does not wear CPAP. Uses oxygen. (8) Morbid obesity: Code(s): E66.01 - Morbid (severe) obesity due to excess calories Category: Medical (9) Hospital discharge follow-up: Code(s): Z09 - Encounter for follow-up examination after completed treatment for conditions other than malignant neoplasm Category: Medical Plan: [facility] discharge as above Plan Time spent on chart review, documentation, interview and assessment Orders: Orders Liver Panel 2 Weeks I48.0 - Paroxysmal atrial fibrillation TSH reflex Free T4 2 Weeks I48.0 - Paroxysmal atrial fibrillation Basic Metabolic Panel 2 Weeks I10 - Essential (primary) hypertension Medications: New lisinopril BP medication 5 mg PO DAILY 30 tabs 5RF Coding Level of Care Code Est Pt Level 4 (44476) Complex EM visit Add On G2211 Diagnoses (HFpEF) heart failure with preserved ejection fraction I50.30 Paroxysmal atrial fibrillation I48.0 HTN (hypertension) I10 CAD (coronary artery disease) I25.10 Hx of CABG Z95.1 S/P AVR Z95.2 STACEY (obstructive sleep apnea) G47.33 Morbid obesity E66.01 Hospital discharge follow-up Z09 CPT Codes EKG - CPT: 03060-[id number], Complete ([id number]) Time Spent (min) 32
[2024-04-04 13:01] VITALS: BP 120/62; PULSE 61; BMI 54.2
--- OUTSIDE RECORDS SUMMARY | 2024-04-04 13:10 | XMS_ITS | Encounter Summary ---
Author Organization [employer] [facility] Address [address] [place] [address] [address] [place] [address] Care Team Providers Care Associate Trainer Name Role Phone Delmer Dunlap MD Primary Care Provider [phone] Encounter Details Date Type Department Care Team ([facility] st Contact Info) Description 03/14/2022 Orders Only [facility]S [address] [place] [address] Magdalena Avila LPN Social History Tobacco Use Types Packs/Day Years Used Date Smoking Tobacco: Never Assessed Sex and Gender Information Value Date Recorded Sex Assigned at Male 01/02/2022 10:22 AM EDT Legal Sex Male 10:22 AM EDT Gender Identity Male 01/02/2022 10:22 AM EDT Sexual Orientation Straight 01/02/2022 10 :22 AM EDT documented as of this encounter Plan of Treatment Not on file documented as of this encounter Visit Diagnoses Not on filedocumented in this encounter Care Teams Associate Trainer Relationship Specialty Start Date End Date Delmer Dunlap MD [address] [place] [address] PCP - General Internal Medicine 04/04/11 [facility] 03/18/24 documented as of this encounter
--- OUTSIDE RECORDS SUMMARY | 2024-04-04 13:10 | XMS_ITS | Encounter Summary ---
Author Organization [employer] Address [address] [facility] [address] [place] [address] Care Team Providers Care Bedspread Seamer Name Role Phone Delmer Dunlap MD Primary Care Provider [phone] Reason for Visit * Reason Onset Date Comments Med Refill 03/18/2024 Encounter Details Date Type Department Care Team (Late st Contact Info) Description 03/18/2024 Refill [facility] MEDICINE [address] [place] [address] Delmer Dunlap MD [address] [place] [id number] Social History Tobacco Use Types Packs/Day Years Used Date Smoking Tobacco: Never Passive Smoke Exposure: Never Smokeless Tobacco: Never Housing Stability Answer Date Recorded What is your housing situation today? I have ishmaelbraden curry 03/18/[address] you li ve. Do you have problems with any of the following? None of the above 03/18/2024 Food Insecurity Answer Date Recorded Within the past 12 months, y ou worried that your food would run out before you got money to buy more: Never True 03/18/2024 Within the past 12 months,th e food you bought just didn't last and you didn't have enough money to get more: Never True Transportation Answer Date Recorded In the past 12 months, has l ack of transportation kept you from medical appts, meetings, work or from getting things needed for daily living? No 03/18/2024 Utilities Answer Date Recorded In the past 12 months, has t he electric, gas, oil or water company threatened to shut off services in your home? No 03/18/2024 Internet Access Answer Date Recorded Internet Access Q1 Yes 03/18/2024 Internet Access Q2 Not on file 03/18/2024 Sex and Gender Information Value Date Recorded Sex Assigned at Male 01/02/2022 10:22 AM EDT Legal Sex Male 10:22 AM EDT Gender Identity Male 01/02/2022 10:22 AM EDT Sexual Orientation Straight 01/02/2022 10 :22 AM EDT documented as of this encounter Miscellaneous Notes * Telephone Encounter - Jhony Gaffney - 03/18/2024 1:09 PM EST TC from pt requesting medication refill. Medications needing refill: levothyroxine (Synthroid, Levoxyl) 125 MCG tablet Ferrous Sulfate (iron) 325 (65 Fe) MG tablet To be sent to: [facility] - [place], [place] - [address] [place] [address] documented in this encounter Plan of Treatment Not on file documented as of this encounter Visit Diagnoses Not on filedocumented in this encounter Care Teams Bedspread Seamer Relationship Specialty Start Date End Date Delmer Dunlap MD [address] [place] [address] PCP - General Internal Medicine 04/04/11 [facility] 03/18/24 documented as of this encounter
--- OUTSIDE RECORDS SUMMARY | 2024-04-04 13:10 | XMS_ITS | Encounter Summary ---
Author Organization [employer] [facility] Address [address] [place] [id number] Care Team Providers Care Whipper Name Role Phone Delmer Dunlap MD Primary Care Provider [phone] Encounter Details Date Type Department Care Team (Late st Contact Info) Description 11/24/2022 [facility] [address] [place], [place] [id number] Delmer Dunlap MD [address] [place] [address] Social History Tobacco Use Types Packs/Day Years Used Date Smoking Tobacco: Never Passive Smoke Exposure: Never Smokeless Tobacco: Never Sex and Gender Information Value Date Recorded Sex Assigned at Male 01/02/2022 10:22 AM EDT Legal Sex Male 10:22 AM EDT Gender Identity Male 01/02/2022 10:22 AM EDT Sexual Orientation Straight 01/02/2022 10 :22 AM EDT documented as of this encounter Plan of Treatment Not on file documented as of this encounter Visit Diagnoses Not on filedocumented in this encounter Care Teams Whipper Relationship Specialty Start Date End Date Delmer Dunlap MD [address] [place] [address] PCP - General Internal Medicine 04/04/11 [facility] 03/18/24 documented as of this encounter
--- OUTSIDE RECORDS SUMMARY | 2024-04-04 13:10 | XMS_ITS | Encounter Summary ---
Author Organization [employer] [facility] Address [address] [place] [address] [address], [place] [address] Care Team Providers Care Training Development Director Name Role Phone Delmer Dunlap MD Primary Care Provider [phone]- [phone] Reason for Visit * Reason Comments Med Refill Encounter Details Date Type Department Care Team ([facility] Contact Info) Description 03/20/2022 Refill [facility] MED & PEDS [address] [place] [address] Delmer Dunlap MD [address] [place] [address] Atherosclerosis of coronary artery of ek[place] heart without angina pectoris, unspecified vessel or lesion type (Primary Dx); Recurrent major depressive disorder, in partial remission (CMS/HCC); Other iron deficiency anemia Social History Tobacco Use Types Packs/Day Years [...] documented as of this encounter Visit Diagnoses Diagnosis Atherosclerosis of coronary artery of ek[place] heart without angina pectoris, unspecified vessel or lesion type- Primary Recurrent major depressive disorder, in partial remission (CMS/HCC) Other iron deficiency anemia documented in this encounter Care Teams Training Development Director Relationship Specialty Start Date End Date Delmer Dunlap MD [address] [place] [address] PCP - General Internal Medicine 04/04/11 [facility] 03/18/24 documented as of this encounter
--- OUTSIDE RECORDS SUMMARY | 2024-04-04 13:10 | XMS_ITS | Encounter Summary ---
Author Organization [employer] Address [address] [facility] 7t [place] [address] Care Team Providers Care Licensed Appraiser Name Role Phone Delmer Dunlap MD Primary Care Provider [phone] Encounter Details Date Type Department Care Team (Latest Contact Info) Description 03/31/2024 Travel Social History Tobacco Use Types Packs/Day Years Used Date Smoking Tobacco: Never Passive Smoke Exposure: Never Smokeless Tobacco: Never Depression Answer Date Recorded Patient Health Questionnaire-9 Score 0 03/31/2024 Patient Health Questionnaire-9 Score 0 03/31/2024 Last PHQ-9: Questionnaire Data Not on file 0 03/31/2024 Housing Stability Answer Date Recorded What is your housing situation today? I have ishmael curry 03/18/[address] you [...] off services in your home? No 03/18/2024 Depression Answer Date Recorded Patient Health Questionnaire-2 Score 0 03/31/2024 Internet Access Answer Date Recorded Internet Access [...] Diagnoses Not on filedocumented in this encounter Additional Health Concerns Assessment Noted Time PHQ-9 Depression Total Score: 0 03/31/19 10:07 AM EST documented as of this encounter Care Teams Licensed Appraiser Relationship Specialty Start Date End Date Delmer Dunlap MD [address] [place] [phone] PCP - General Internal Medicine 04/04/11 [facility] 03/18/24 documented as of this encounter
--- OUTSIDE RECORDS SUMMARY | 2024-04-04 13:10 | XMS_ITS | Encounter Summary ---
Author Organization [employer] [facility] Address [address] [place] [address] 7 [place] [address] Care Team Providers Care It Security Specialist Name Role Phone Delmer Dunlap MD Primary Care Provider [phone] Encounter Details Date Type Department Care Team (Late st Contact Info) Description 03/23/2022 Orders Only [facility] MEDICINE [address] [place] [address] Delmer Dunlap MD [address] [place], [place] [phone] Social History Tobacco Use Types Packs/Day Years [...] on filedocumented in this encounter Care Teams It Security Specialist Relationship Specialty Start Date End Date Delmer Dunlap MD [address] [place] [address] PCP - General Internal Medicine 04/04/11 [facility] 03/18/24 documented as of this encounter
--- OUTSIDE RECORDS SUMMARY | 2024-04-04 13:10 | XMS_ITS | Encounter Summary ---
Author Organization [employer] Address [address] [place] [address] 7 [place] [address] Care Team Providers Care Chute Operator Name Role Phone Delmer Dunlap MD Primary Care Provider [phone] Encounter Details Date Type Department Care Team (Late st Contact Info) Description 06/05/2022 Orders Only [facility] MED & PEDS [address] [place], [place] [phone] Delmer Dunlap MD [address] [place] [address] Social History Tobacco Use Types Packs/Day Years Used Date Smoking Tobacco: Never Passive Smoke Exposure: Never Smokeless Tobacco: Never Sex and Gender Information Value Date Recorded Sex Assigned at Male 01/02/2022 10:22 AM EDT Legal Sex Male 10:22 AM EDT Gender Identity Male 01/02/2022 10:22 AM EDT Sexual Orientation Straight 01/02/2022 10 :22 AM EDT COVID-19 Exposure Response Date Recorded In the last 10 days, have yo u been in contact with someone who was confirmed or suspected to have Coronavirus/COVID-19? No / Unsure 05/30/2022 3:40 PM EDT documented as of this encounter Plan of Treatment Not on file documented as of this encounter Visit Diagnoses Not on filedocumented in this encounter Care Teams Chute Operator Relationship Specialty Start Date End Date Delmer Dunlap MD [address] [place] [address] PCP - General Internal Medicine 04/04/11 [facility] 03/18/24 documented as of this encounter
--- OUTSIDE RECORDS SUMMARY | 2024-04-04 13:10 | XMS_ITS | Clinical Summary ---
Author Organization [employer] Address [address] [place] [address] 7t [place] [address] Care Team Providers Care Infection Control Coordinator Name Role Phone Delmer Dunlap MD Primary Care Provider [phone]- [phone] Allergies No known active allergies Medications ammonium lactate (Lac-Hydrin) 12 % lotion Use topically BID in dry skin 11/22/19 22 Active nystatin (Nystop) 406981 UNIT/GM powder apply by topical route 2 times every day to the affected area(s) 04/01/19 22 Active torsemide (Demadex) 20 MG tablet Take 3 tabs in the morning and 2 tabs in the evening Active acetaminophen (Tylenol) 325 MG tablet Take 650 mg by mouth every 6 (six) hours if needed. 10/10/19 20 Active Zinc Oxide (Secura Protective) 10 % cream Apply 1 g topically 2 times daily. 113 g 1 07/12/19 23 Active miconazole (Zeasorb-AF) 2 % powderIndicatio ns:Intertrigo Apply topically if needed for itching. 85 g 3 07/21/19 23 Active bacitracin (RA Bacitracin) 500 UNIT/GM ointmentIndicat ions:Intertrigo Apply topically 2 times daily. 14 g 07/21/19 23 Active pantoprazole (ProtoNix) 40 MG EC tabletIndicatio ns:Gastroesopha geal reflux disease without esophagitis TAKE ONE TABLET EVERY MORNING 90 tablet 5 04/26/19 24 Active amiodarone (Pacerone) 200 MG tablet TAKE ONE TABLET EVERY MORNING 90 tablet 1 10/15/19 24 Active Aspirin Adult Low Strength 81 MG EC tablet TAKE ONE TABLET EVERY MORNING 90 tablet 3 10/15/19 24 Active levETIRAcetam (Keppra) 500 MG tablet TAKE ONE TABLET IN THE MORNING AND EVENING 180 tablet 1 10/15/19 24 Active Multiple Vitamin (Multivitamin) tablet TAKE ONE TABLET AT NOON 90 tablet 3 10/15/19 24 Active melatonin 5 MG tablet TAKE 1 TABLET EVERY NIGHT AT BEDTIME 30 tablet 11 11/14/19 24 Active potassium chloride CR (Klor-Con M20) 20 MEQ ER tablet TAKE ONE TABLET IN THE MORNING AND EVENING 60 tablet 3 12/11/19 24 Active PARoxetine (Paxil) 20 MG tabletIndicatio ns:Recurrent major depressive disorder, in partial remission (CMS/HCC) TAKE ONE TABLET EVERY EVENING 30 tablet 2 02/13/20 24 Active Xarelto 20 MG tablet TAKE ONE TABLET EVERY EVENING 30 tablet 5 02/13/20 24 Active atorvastatin (Lipitor) 80 MG tabletIndicatio ns:Atherosclero sis of coronary artery of [place] heart without angina pectoris, unspecified vessel or lesion type TAKE ONE TABLET EVERY EVENING 90 tablet 1 03/12/19 25 Active levothyroxine (Synthroid, Levoxyl) 125 MCG tablet Take 1 tablet (125 mcg) by mouth before breakfast. 30 tablet 3 03/18/19 25 Active Ferrous Sulfate (iron) 325 (65 Fe) MG tablet Place 1 tablet (325 mg) into mouth between cheek and gum Once per day. 90 tablet 1 03/18/19 25 Active bisacodyl (Dulcolax) 5 MG EC tabletIndicatio ns:Slow transit constipation Take 1 tablet (5 mg) by mouth if needed each day for constipation . Do not crush, chew, or split. 30 tablet 03/31/19 25 025 Active nystatin (Mycostatin) 222313 UNIT/GM powderIndicatio ns:Intertrigo Apply topically 2 times daily. 60 g 3 03/31/19 25 026 Active midodrine (Proamatine) 5 MG tablet Take 5 mg by mouth. BID 025 Discontinued(Me d list cleanup (will not trigger notification to Pharmacy)) lisinopril 10 MG tablet TAKE ONE TABLET EVERY MORNING 90 tablet 1 08/14/19 24 025 Discontinued(Me d list cleanup (will not trigger notification to Pharmacy)) atorvastatin (Lipitor) 80 MG tabletIndicatio ns:Atherosclero sis of coronary artery of [place] heart without angina pectoris, unspecified vessel or lesion type TAKE ONE TABLET EVERY EVENING 90 tablet 1 08/14/19 24 025 Discontinued Ferrous Sulfate (iron) 325 (65 Fe) MG tablet TAKE ONE TABLET EVERY MORNING WITH BREAKFAST 30 tablet 3 12/11/19 24 025 Discontinued levothyroxine (Synthroid, Levoxyl) 125 MCG tablet TAKE ONE TABLET EVERY MORNING BEFORE BREAKFAST 30 tablet 3 12/11/19 24 025 Discontinued(Re order (will not trigger notification to Pharmacy)) Ferrous Sulfate (iron) 325 (65 Fe) MG tablet TAKE ONE TABLET EVERY MORNING WITH BREAKFAST 90 tablet 1 03/12/19 25 025 Discontinued(Re order (will not trigger notification to Pharmacy)) Active Problems Patient Care Coordination No te Formatting of this note migh t be different from the original. C3/CM Jeanette Zee RN Problem Noted Date Diagnosed Date Iron deficiency anemia 03/31/2024 Cellulitis of abdominal wall 07/11/2022 Assessment & Plan (07/11/2022 5:09 PM EDT): Patient has a large abdominal pannus, there are multiple opne skin areas, with associated erythema, and discharge, no fever, vital signs were stable, will start on doxycyline for 7 days, keep area dry, will provide inc oxide ointment, follow up in 1 week Hypothyroidism 03/27/2022 Atrioventricular allan re-entry tachycardia 03/05 Overview (03/22/2022): S/P RF ablation. Aortic stenosis 03/22/2022 Brain mass 03/22/2022 [place] 03/22/2022 Heart failure 03/22/2022 Dependent edema 03/22/2022 Fall in home 03/22/2022 Hypercholesterolemia 03/22/2022 Morbid obesity 03/22/2022 STACEY (obstructive sleep apnea) 03/22/2022 Radius fracture 03/22/2022 S/P CABG x 4 03/22/2022 Seizure 05/07/2017 Paroxysmal atrial fibrillation 02/06/2017 Closed fracture of distal end of radius 09/30/19 17 Atherosclerosis of coronary artery 05/18/2011 Congestive heart failure 04/19/2011 Hypertensive heart disease without congestive he art failure 04/19/2011 Encounters Date Type Department Care Team Description 04/01/2024 Telephone [facility] MED & PEDS [address] [place] [address] Madyson Rodriguez, RN Results 03/31/2024 10:15 AM EST Office Visit [facility] [address] [place] [address] Delmer Dunlap MD Hypertensive heart disease without congestive heart failure (Primary Dx); Chronic heart failure, unspecified heart failure type (CMS/HCC); Slow transit constipation; Intertrigo; Other iron deficiency anemia; Acute renal failure, unspecified acute renal failure type (CMS/HCC) 03/31/2024 Travel 03/18/2024 Refill [facility] MEDICINE [address] [place] [address] Delmer Dunlap MD 03/18/2024 Patient Outreach [facility] [address] [place] [address] Delmer Dunlap MD Transition Of Care (Tcm) (HDF- scheduled and SDOH screening negative and Tobacco screening negative) 03/18/2024 Telephone [facility] [address] [place] [address] Delmer uDnlap MD 03/18/2024 Telephone [facility] MEDICINE [address] [place] [address] Delmer Dunlap MD Hospital Follow-up 03/12/2024 Refill [facility] [address] [place] [address] Delmer Dunlap MD Atherosclerosis of coronary artery of [place] heart without angina pectoris, unspecified vessel or lesion type 03/11/2024 Telephone [facility] [address] [place] [address] Delmer Dunlap MD 02/12/2024 Refill [facility] MEDICINE [address] [place] [address] Delmer Dunlap MD Recurrent major depressive disorder, in partial remission (CMS/HCC) from Last 3 Months Immunizations Name Administration Dates Next Due Tdap 04/09/2009 Social History Tobacco Use Types Packs/Day Years Used Date Smoking Tobacco: Never Passive Smoke Exposure: Never Smokeless Tobacco: Never Tobacco Cessation:Counseling Given: Not Answered Depression Answer Date Recorded Patient Health Questionnaire-9 [...] Orientation Straight 01/02/2022 10 :22 AM EDT Last Filed Vital Signs Vital Sign Reading Time Taken Comments Blood Pressure 131/76 03/31/2024 10:05 AM EST Pulse 76 03/31/2024 10:05 AM EST Temperature 36.8 ??C (98.3 ??F) 03/31/2024 10:[address] Respiratory Rate 17 03/31/2024 10:05 AM EST Oxygen Saturation 97% 03/31/2024 10:05 AM EST Inhaled Oxygen Concentration - - Weight 173 kg (381 lb 3.2 oz) 03/31/2024 10:05 A M EST Height 172.7 cm (5' 8 ) 03/31/2024 10:05 AM EST Body Mass Index 57.96 03/31/2024 10:05 AM EST Plan of Treatment Health Maintenance Due Date Last Done Comments CT Colonography 1953 Colonoscopy 1953 Colorectal Cancer Screening 1955 FIT DNA/Cologuard 1953 FIT 1953 FOBT 1955 Sigmoidoscopy 1955 Hepatitis C Screening 12/09/1971 Pneumococcal Vaccine: 50+ Years (1 of 2 - PCV) 1972 Zoster Vaccines (1 of 2) 12/09/2003 RSV Patients and Patients Aged 60 years or older (1 - Risk 60-74 years 1-dose series) 2013 DTaP/Tdap/Td Vaccines (2 - T d or Tdap) 04/09/2019 04/09/2009 COVID-19 Vaccine (3 - 2023-2 5 season) 2023 11/22/2020, 11/01/2020 Influenza Vaccine (#1) 2023 Tobacco Screening 11/17/2023 11/16/2022 SDOH Screening 03/18/2025 03/18/2024 Alcohol/Substance Use Screening 03/31/2025 03/31/2024 Depression Screening 03/31/2025 03/31/2024, 03/31/2024 Lipid Panel 01/14/2026 01/14/2021 HIB Vaccines Aged Out No longer eligi ble based on patient's age to complete this topic HPV Vaccines Aged Out No longer eligi ble based on patient's age to complete this topic Hepatitis A Vaccines Aged Out No long er eligible based on patient's age to complete this topic Hepatitis B Vaccines Aged Out No long er eligible based on patient's age to complete this topic IPV Vaccines Aged Out No longer eligi ble based on patient's age to complete this topic Meningococcal Vaccine Aged Out No carlie yury eligible based on patient's age to complete this topic RSV under 20 months Aged Out No longe r eligible based on patient's age to complete this topic Rotavirus Vaccines Aged Out No longer eligible based on patient's age to complete this topic Procedures Procedure Name Priority Date/Time Associated Diagnosis Comments CBC WITH AUTO DIFFERENTIAL Routine 03/31/2024 11:17 AM EST Chronic heart failure, unspecified heart failure type (CMS/HCC) BASIC METABOLIC PANEL Routine 03/31/2024 11:15 AM EST Chronic heart failure, unspecified heart failure type (CMS/HCC) LIPID PANEL, STANDARD Routine 01/14/2021 10:23 AM EST from Last 3 Months or Most Recently Relevant to Health Maintenance Results * (ABNORMAL) CBC auto differential (03/31/2024 11:17 AM EST) White Blood Count 4.0(L) 4.8 - 10.8 X10*3/uL [facility] Red Blood Count 4.08(L) 4.60 - 5.80 X10*6/uL [facility] Hemoglobin 11.3(L) 14.0 - 18.0 g/dl [facility] Hematocrit 37.2(L) 42.0 - 52.0 % [facility] Mean Corpuscular Volume 91.2 80.0 - 98.0 fL [facility] Mean Corpuscular Hemoglobin 27.7 27.0 - 33.0 pg [facility] Mean Corpuscular HGB Conc 30.4(L) 31.0 - 36.0 g/dl [facility] Red Cell Distribution Width 14.6 11.0 - 16.0 % [facility] Platelet Count 175 160 - 400 X10*3/uL [facility] Mean Platelet Volume 12.2 9.4 - 12.4 fL [facility] Neutrophils Percent Auto 68.1 45 - 73 % [facility] Imm Gran Pct Auto 0.5(H) 0.0 - 0.4 % [facility] Lymphocytes Percent Auto 18.6(L) 20 - 40 % [facility] Monocytes Percent Auto 10.8 2 - 11 % [facility] Eosinophils Percent Auto 1.5 0 - 4 % [facility] Basophils Percent Auto 0.5 0 - 2 % [facility] NRBC Pct Auto 0.0 0.0 - 0.2 /100WBC [facility] Neutrophils Absolute Auto 2.7 2.0 - 8.3 x10*3/uL [facility] Imm Gran Abs Auto 0.02 0.00 - 0.03 X10*3/uL [facility] Lymphocytes Absolute Auto 0.7(L) 1.2 - 4.9 X10*3/uL [facility] Monocytes Absolute Auto 0.4 0.1 - 1.2 X10*3/uL [facility] Eosinophils Absolute Auto 0.1 0.0 - 0.4 X10*3/uL [facility] Basophils Absolute Auto 0.0 0.0 - 0.2 X10*3/uL [facility] NRBC Abs Auto 0.000 0.0 - 0.012 X10*3/uL [facility] Blood Venous blood specimen / Unknown 03/31/2024 11:17 AM EST 03/31/2024 2:21 PM EST us Delmer Dunlap MD LAB BLOOD ORDERABLES Final Result [facility] [address] [place], [place] [phone] * (ABNORMAL) Basic Metabolic Panel (03/31/2024 11:15 AM EST) Sodium 145 135 - 145 mmol/L [facility] Potassium 4.0 3.3 - 5.1 mmol/L [facility] Chloride 98 96 - 108 mmol/L [facility] Carbon Dioxide 38(H) 22 - 29 mmol/L [facility] Anion Gap 13 12 - 20 [facility] Urea Nitrogen (BUN) 18(H) 9 - 16 mg/dL [facility] Creatinine, Serum 1.21 0.5 - 1.4 mg/dL [facility] Estimated Glomerular Filt Rate 59 [facility] Comment:Chronic Kidney Disea se: Estimated GFR < 60 mL/min/1.84g4Sghexg Kidney Disease: Estimated GFR < 15 mL/min/1.73m2 Glucose 129(H) 60 - 115 mg/dL [facility] Calcium 9.4 8.4 - 10.2 mg/dL [facility] Blood Venous blood specimen / Unknown 03/31/2024 11:15 AM EST 03/31/2024 2:21 PM EST us Delmer Dunlap MD LAB BLOOD ORDERABLES Final Result [facility] [address] [place] [phone] * (ABNORMAL) LIPID PANEL, STANDARD (01/14/2021 10:23 AM EST) Chol/HDLC Ratio 3.3 <5.0 (calc) [facility] Cholesterol, Total 173 <200 mg/dL [facility] HDL Cholesterol 53 > OR = 40 mg/dL [facility] LDL Cholesterol 94 mg/dL (calc) [facility] Comment: Reference range: <100 ?? Desirable range <100 mg/dL for primary prevention; ?? <70 mg/dL for patients with CHD or diabetic patients ?? with > or = 2 CHD risk factors. ?? LDL-C is now calculated using the Kateryna ?? calculation, which is a validated novel method providing ?? better accuracy than the Friedewald equation in the ?? estimation of LDL-C. ?? Larry ALVAREZ et al. SHASHANK. 2013;310(19): 9597-1544 ?? (http://education.MyLikes.Merlin Diamonds/faq/UUF121) Non-HDL Cholesterol 120 <130 mg/dL (calc) [facility] Comment: For patients with diabetes plus 1 major ASCVD risk ?? factor, treating to a non-HDL-C goal of <100 mg/dL ?? (LDL-C of <70 mg/dL) is considered a therapeutic ?? option. Triglycerides 162(H) <150 mg/dL [facility] 01/14/2021 10:2 3 AM EST us Verónica Mckenna MD LAB BLOOD ORDERABLES Final Re sult [facility] [address] [place] [address], from Last 3 Months or Most Recently Relevant to Health Maintenance Insurance MEDICARE Member Subscriber Plan / Payer (Ef fective 2022-Present) Name:Darwin Iraheta Member ID:[id number] Relation to Subscriber:Self Name:Darwin Iraheta Subscriber ID:[id number] Payer ID:STATE Group ID:Not on file Type:Medicare Address: [facility] [address] [address] [facility] Care Teams Infection Control Coordinator Relationship Specialty Start Date End Date Delmer Dunlap MD [address] [place] [phone] PCP - General Internal Medicine 04/04/11 [facility] 03/18/24
--- OUTSIDE RECORDS SUMMARY | 2024-04-04 13:10 | XMS_ITS | Encounter Summary ---
Author Organization [employer] Address [address] [place] [address] Care Team Providers Care Ceramic Designer Name Role Phone Delmer Dunlap MD Primary Care Provider [phone] Reason for Visit * Reason Onset Date Comments Lab Orders 05/05/2022 Encounter Details Date Type Department Care Team (Late st Contact Info) Description 05/05/2022 Telephone [facility] MEDICINE [address] [place] [address] Delmer Dunlap MD [address] [place] [phone] Lab Orders Social History Tobacco Use Types Packs/Day Years [...] encounter Miscellaneous Notes * Telephone Encounter - Casey Mars RN - 05/17/2022 2:38 PM EDT Incoming task from PCP: In 2 weeks from now ( beginning of June) Call to [facility] informed. Advised of [facility] lab hours. She verbalizes understanding and agrees. * Telephone Encounter - Opal Weir RN - 05/08/2022 9:26 AM EST Return call placed to Rossi regarding message below. Pt's Rossi will like to know when PCP will like pt to repeat TSH. Levothyroxine was sent to the pharmacy on 04/19. RN informed Rossi message will be sent to PCP regarding her question. Rossi also wanted to know the status of hospital bed. RN informed paperwork has faxed to [facility] andthat pt will have to f/u with [facility]. Rossi agrees to plan. * Telephone Encounter - Percy Baer - 05/05/2022 4:38 PM EST Tc from requesting an order for blood work, Please contact pt at [phone] documented in this encounter Plan of Treatment Not on file documented as of this encounter Visit Diagnoses Not on filedocumented in this encounter Care Teams Ceramic Designer Relationship Specialty Start Date End Date Delmer Dunlap MD [address] [place] [phone] PCP - General Internal Medicine 04/04/11 [facility] 03/18/24 documented as of this encounter
--- OUTSIDE RECORDS SUMMARY | 2024-04-04 13:10 | XMS_ITS | Encounter Summary ---
Author Organization [employer] Address 75 [facility] 7 [place] [address] Care Team Providers Care Behavioral Therapy Coordinator Name Role Phone Delmer Dunlap MD Primary Care Provider [phone] Reason for Visit * Reason Comments Transition Of Care (Tcm) HDF- scheduled and SDOH screening negative and Tobacco screening negative Encounter Details Date Type Department Care Team ([facility] st Contact Info) Description 03/18/2024 Patient Outreach [facility] [address] [place], [place] [phone] Delmer Dunlap MD [address] [place] [address] Transition Of Care (Tcm) (HDF- scheduled and SDOH screening negative and Tobacco screening negative) Social History Tobacco Use Types Packs/Day Years Used Date Smoking Tobacco: Never Passive Smoke Exposure: Never Smokeless Tobacco: Never Housing Stability Answer Date Recorded What is your housing situation today? I have ishmael antoinette 03/18/[address] you li [...] as of this encounter Miscellaneous Notes * Significant Event - Theresa Maier - 03/18/2024 12:08 PM EST 03/18/24 1204 Hospital Discharges and Admission for [facility] Type of Visit Hospital Admission Date of Admission/Visit 03/02/24 Date of Discharge 03/17/24 Facility [facility] Diagnosis Acute on chronic heart failure with preserved ejection fraction, STACEY (obstructive sleep apnea), Hypernatremia, Acute on chronic hypoxic respiratory failure, Acute on chronic anemia, High serum bicarbonate, Shortness of breath Disposition Discharged with Home Care Services Follow-Up Actions Follow-Up Needed Provider appointment Follow-Up Outcome Spoke to Caregiver;Booked Appointment Initial Contact Date 03/18/24 ANGUS Liao placed outbound call to patient for HDF outreach. Patient's name and were confirmed by Tiffanie. Patient educated on the importance of follow up with provider following inpatient admission. Patient offered an HDF appt. Patient is agreeable to an appointment and has been scheduled for 03/31/2024 at 10:15am with . Insurance verified prior to scheduling. Patient advised to bring to appointment a photo id and insurance card. Patient provided with education on contacting the Health Center with any questions or concerns prior to the scheduled appointment. Patient educated on extended clinic hours on Mondays and Wednesdays, and Walk-In Urgent Care Located in [facility] . Patient provided with after-hours line for [facility], , which offer night time triage service and option to transfer to unified communications engineer provider if needed. CC scanned discharge summary into patient'schart. Biggest concern for appointment at this time is no concerns at the moment. Appropriate screenings completed in anticipation of appointment. documented in this encounter Plan of Treatment Not on file documented as of this encounter Visit Diagnoses Not on filedocumented in this encounter Care Teams Behavioral Therapy Coordinator Relationship Specialty Start Date End Date Delmer Dunlap MD [address] [place] [address] PCP - General Internal Medicine 04/04/11 [facility] 03/18/24 documented as of this encounter
--- OUTSIDE RECORDS SUMMARY | 2024-04-04 13:10 | XMS_ITS | Encounter Summary ---
Author Organization [employer] Address [address] [place] [address] Care Team Providers Care Brain Wave Technician Name Role Phone Delmer Dunlap MD Primary Care Provider [phone] Encounter Details Date Type Department Care Team (Late st Contact Info) Description 11/16/2022 Orders Only [facility] MED & PEDS [address] [place], [place] [phone] Delmer Dunlap MD [address] [place] [address] Congestive heart failure, unspecified HF chronicity, unspecified heart failure type (CMS/HCC) (Primary Dx) Social History Tobacco Use Types Packs/Day Years Used Date Smoking Tobacco: Never Passive Smoke Exposure: Never Smokeless Tobacco: Never Sex and Gender Information Value Date Recorded Sex Assigned at Male 01/02/2022 10:22 AM EDT Legal Sex Male 10:22 AM EDT Gender Identity Male 01/02/2022 10:22 AM EDT Sexual Orientation Straight 01/02/2022 10 :22 AM EDT documented as of this encounter Plan of Treatment Scheduled Orders Name Type Priority Associated Diagnoses Orde r Schedule Basic Metabolic Panel Lab Routine Congestive heart failure, unspecified HF chronicity, unspecified heart failure type (CMS/HCC) Expected: 11/16/2022 (Approximate), Expires: 11/17/2023 documented as of this encounter Visit Diagnoses Diagnosis Congestive heart failure, unspecified HF chronicity, unspecified heart failure type (CMS/HCC)- Primary documented in this encounter Care Teams Brain Wave Technician Relationship Specialty Start Date End Date Delmer Dunlap MD [address] [place] [address] PCP - General Internal Medicine 04/04/11 [facility] 03/18/24 documented as of this encounter
--- OUTSIDE RECORDS SUMMARY | 2024-04-04 13:10 | XMS_ITS | Encounter Summary ---
Author Organization [employer] [facility] Address [address] [place] [address] Care Team Providers Care Sales Lead Name Role Phone Delmer Dunlap MD Primary Care Provider [phone] Reason for Referral * Consultation (Routine) - Authorized Specialty Diagnoses / Procedures Referred By Kenny cee Referred To Contact Hematology and Oncology Diagnoses Other iron deficiency anemia Delmer Dunlap MD [address] [place] [address] Phone: tel: fax: Hematology & Oncology[address] Phone: tel: fax: Referral ID Status Reason Start Date Expiration Date Visits Requested Visits Authorized [id number] Authorized Specialty Services Required 03/31/2024 03/31/2025 1 1 Reason for Visit * Reason Comments Hospital discharge follow-up Encounter Details Date Type Department Care Team (Late st Contact Info) Description 03/31/2024 10:15 AM EST Office Visit [facility] & PEDS [address] [place] [address] Delmer Dunlap MD [address] [place] [address] Hypertensive heart disease without congestive heart failure (Primary Dx); Chronic heart failure, unspecified heart failure type (CMS/HCC); Slow transit constipation; Intertrigo; Other iron deficiency anemia; Acute renal failure, unspecified acute renal failure type (CMS/HCC) Social History Tobacco Use Types Packs/Day Years [...] AM EDT documented as of this encounter Last Filed Vital Signs Vital Sign Reading [...] Mass Index 57.96 03/31/2024 10:05 AM EST documented in this encounter Progress Notes * Delmer Dunlap MD - 03/31/2024 10:15 AM EST Subjective Patient ID: Darwin Iraheta is a 68 y.o. male who presents for Hospital discharge follow-up. HPI Patient was admitted on March 02 through March 17 for altered mental status likely due to chronic hypoxic and hypercapnic respiratory failure triggered by his CHF exacerbation. Started on Lasix.Received 40 mg IV in the emergency department. Also started on BiPAP at night. He could not tolerate the BiPAP because of claustrophobia. He was transitioned to Lasix drip initially and later to torsemide as volume status improved per cardiology's recommendation. The hospitalization was complicatedwith acute kidney injury due to intravascular depletion leading to a diuretic holiday for 1 day. Creatinine improved to 1.4 and patient was resumed on torsemide. Discharge [facility]. At discharge his torsemide was increased from 40 mg 2 times a day to 60 mg in the morning and 40 mgin the evening. No medication discontinued. Review of Systems Constitutional: Positive for fatigue. Negative for fever and unexpected weight change. Respiratory: Negative for shortness of breath. Cardiovascular: Negative for palpitations and leg swelling. Gastrointestinal: Positive for abdominal distention. Skin: Positive for rash. Objective BP 131/76 (BP Location: Right arm, Patient Position: Sitting, BP Cuff Size: Large adult) Pulse 76 Temp 98.3 ??F (36.8 ??C) (Oral) Resp 17 Ht 5' 8 (1.727 m) Wt 381 lb 3.2 oz (173 kg) SpO2 97% BMI 57.96 kg/m?? Physical Exam Constitutional: General: He is not in acute distress. Appearance: Normal appearance. He is obese. He is not ill-appearing, toxic- appearing or diaphoretic. Cardiovascular: Rate and Rhythm: Rhythm irregular. Pulmonary: Effort: Pulmonary effort is normal. Skin: Comments: Erythema of the abdominal fold Neurological: General: No focal deficit present. Mental Status: He is alert. Psychiatric: Mood and Affect: Mood normal. Assessment/Plan Diagnoses and all orders for this visit: Hypertensive heart disease without congestive heart failure Comments: Blood pressure is at goal in the office Patient was already contacted by his automobile mechanic radiator office for an appointment Chronic heart failure, unspecified heart failure type (CMS/HCC) Comments: As above Orders: - Basic Metabolic Panel; Future - CBC auto differential; Future Slow transit constipation Comments: Started on iron 3 times a day during the hospitalization which caused constipation CBC ordered. Decreased iron to once a day Orders: - bisacodyl (Dulcolax) 5 MG EC tablet; Take 1 tablet (5 mg) by mouth if needed each day for constipation. Do not crush, chew, or split. Intertrigo - nystatin (Mycostatin) [id number] UNIT/GM powder; Apply topically 2 times daily. Other iron deficiency anemia - Referral to Hematology / Oncology; Future Acute renal failure, unspecified acute renal failure type (CMS/HCC) Comments: Continue with torsemide 60 mg in the morning and 40 in the afternoon pending the basic metabolic profile documented in this encounter Plan of Treatment Scheduled Referrals Name Type Priority Associated Diagnoses Order Schedule Referral to Hematology / Oncology Outpatient Referral Routine Other iron deficiency anemia Expected: 03/31/2024 (Approximate), Expires: 03/31/2025 documented as of this encounter Procedures Procedure Name Priority Date/Time Associated Diagnosis Comments CBC WITH AUTO DIFFERENTIAL Routine 03/31/2024 11:17 AM EST Chronic heart failure, unspecified heart failure type (CMS/HCC) BASIC METABOLIC PANEL Routine 03/31/2024 11:15 AM EST Chronic heart failure, unspecified heart failure type (CMS/HCC) documented in this encounter Results * (ABNORMAL) CBC auto differential (03/31/2024 11:17 AM EST) White Blood Count 4.0(L) 4.8 - 10.8 X10*3/uL [facility] Red Blood Count 4.08(L) 4.60 - 5.80 X10*6/uL [facility] Hemoglobin 11.3(L) 14.0 - 18.0 g/dl [facility] Hematocrit 37.2(L) 42.0 - 52.0 % [facility] Mean Corpuscular Volume 91.2 80.0 - 98.0 fL [facility] Mean Corpuscular Hemoglobin 27.7 27.0 - 33.0 pg [facility] Mean Corpuscular HGB Conc 30.4(L) 31.0 - 36.0 g/dl [facility] Red Cell Distribution Width 14.6 11.0 - 16.0 % [facility] Platelet Count 175 160 - 400 X10*3/uL [facility] Mean Platelet Volume 12.2 9.4 - 12.4 fL [facility] Neutrophils Percent Auto 68.1 45 - 73 % [facility] Imm Gran Pct Auto 0.5(H) 0.0 - 0.4 % [facility] Lymphocytes Percent Auto 18.6(L) 20 - 40 % [facility] Monocytes Percent Auto 10.8 2 - 11 % [facility] Eosinophils Percent Auto 1.5 0 - 4 % [facility] Basophils Percent Auto 0.5 0 - 2 % [facility] NRBC Pct Auto 0.0 0.0 - 0.2 /100WBC [facility] Neutrophils Absolute Auto 2.7 2.0 - 8.3 x10*3/uL [facility] Imm Gran Abs Auto 0.02 0.00 - 0.03 X10*3/uL [facility] Lymphocytes Absolute Auto 0.7(L) 1.2 - 4.9 X10*3/uL [facility] Monocytes Absolute Auto 0.4 0.1 - 1.2 X10*3/uL [facility] Eosinophils Absolute Auto 0.1 0.0 - 0.4 X10*3/uL [facility] Basophils Absolute Auto 0.0 0.0 - 0.2 X10*3/uL [facility] NRBC Abs Auto 0.000 0.0 - 0.012 X10*3/uL [facility] Blood Venous blood specimen / Unknown 03/31/2024 11:17 AM EST 03/31/2024 2:21 PM EST us Delmer Dunlap MD LAB BLOOD ORDERABLES Final Result Performing Organization Address [facility]/ZIP Co de Phone Number [facility] [address] [place] [address] [phone] * (ABNORMAL) Basic Metabolic Panel (03/31/2024 11:15 AM EST) Sodium 145 135 - 145 mmol/L [facility] Potassium 4.0 3.3 - 5.1 mmol/L [facility] Chloride 98 96 - 108 mmol/L [facility] Carbon Dioxide 38(H) 22 - 29 mmol/L [facility] Anion Gap 13 12 - 20 [facility] Urea Nitrogen (BUN) 18(H) 9 - 16 mg/dL [facility] Creatinine, Serum 1.21 0.5 - 1.4 mg/dL [facility] Estimated Glomerular Filt Rate 59 [facility] Comment:Chronic Kidney Disea se: Estimated GFR < 60 mL/min/[id number] Kidney Disease: Estimated GFR < 15 mL/min/1.73m2 Glucose 129(H) 60 - 115 mg/dL [facility] Calcium 9.4 8.4 - 10.2 mg/dL [facility] Blood Venous blood specimen / Unknown 03/31/2024 11:15 AM EST 03/31/2024 2:21 PM EST us Delmer Dunlap MD LAB BLOOD ORDERABLES Final Result Performing Organization Address [facility]/ZIP Co de Phone Number [facility] [address] [place] [address] [phone] documented in this encounter Visit Diagnoses Diagnosis Hypertensive heart disease without congestive heart failure- Primary Unspecified hypertensive heart disease without heart failure Chronic heart failure, unspecified heart failure type (CMS/HCC) Slow transit constipation Intertrigo Other specified erythematous condition Other iron deficiency anemia Acute renal failure, unspecified acute renal failure type (CMS/HCC) documented in this encounter Additional Health Concerns Assessment Noted Time PHQ-9 Depression Total Score: 0 03/31/19 10:07 AM EST documented as of this encounter Care Teams Sales Lead Relationship Specialty Start Date End Date Delmer Dunlap MD [address] [place] [phone] PCP - General Internal Medicine 04/04/11 [facility] 03/18/24 documented as of this encounter
--- OUTSIDE RECORDS SUMMARY | 2024-04-04 13:10 | XMS_ITS | Encounter Summary ---
Author Organization [employer] Address 75 [facility] 7 [place] [address] Care Team Providers Care Slurry Tank Operator Name Role Phone Delmer Dunlap MD Primary Care Provider [phone] Reason for Visit * Reason Comments Med Refill Encounter Details Date Type Department Care Team ([facility] st Contact Info) Description 03/12/2024 Refill [facility] CH[facility] MED & PEDS [address] [place], [place] [phone] Delmer Dunlap MD [address] [place] [address] Atherosclerosis of coronary artery of [place] heart without angina pectoris, unspecified vessel or lesion type Social History Tobacco Use Types Packs/Day Years Used Date Smoking Tobacco: Never Passive Smoke Exposure: Never Smokeless Tobacco: Never Housing Stability Answer Date Recorded What is your housing situation today? I have ishmaelbraden curry 12/20/[address] you li ve. Do you have problems with any of the following? None of the above 12/20/2022 Food Insecurity Answer Date Recorded Within the past 12 months, y ou worried that your food would run out before you got money to buy more: Never True 12/20/2022 Within the past 12 months,th e food you bought just didn't last and you didn't have enough money to get more: Never True Transportation Answer Date Recorded In the past 12 months, has l ack of transportation kept you from medical appts, meetings, work or from getting things needed for daily living? No 12/20/2022 Utilities Answer Date Recorded In the past 12 months, has t he [employer], oil or water company threatened to shut off services in your home? No 12/20/2022 Sex and Gender Information Value Date Recorded Sex Assigned at Male 01/02/2022 10:22 AM EDT Legal Sex Male 10:22 AM EDT Gender Identity Male 01/02/2022 10:22 AM EDT Sexual Orientation Straight 01/02/2022 10 :22 AM EDT documented as of this encounter Plan of Treatment Not on file documented as of this encounter Visit Diagnoses Diagnosis Atherosclerosis of coronary artery of [place] heart without angina pectoris, unspecified vessel or lesion type documented in this encounter Care Teams Slurry Tank Operator Relationship Specialty Start Date End Date Delmer Dunlap MD [address] [place] [address] PCP - General Internal Medicine 04/04/11 documented as of this encounter
--- OUTSIDE RECORDS SUMMARY | 2024-04-04 13:10 | XMS_ITS | Encounter Summary ---
Author Organization [employer] Address [address] [place] [address] Care Team Providers Care Radiographer Name Role Phone Delmer Dunlap MD Primary Care Provider [phone] Reason for Visit * Reason Onset Date Comments FYI 11/30/2022 Encounter Details Date Type Department Care Team ([facility] st Contact Info) Description 11/30/2022 Telephone [facility] CH[facility] MED & PEDS [address] [place] [address] Delmer Dunlap MD [address] [place] [address] FYI Social History Tobacco Use Types Packs/Day Years [...] Telephone Encounter - Casey Mars RN - 12/01/2022 9:04 AM EDT Call to pt. Per pt, doing well. Denies CP, SOB, cough, edema, or other symptoms at this time. Per pt, did cheat a bit on his diet the night before. Reports resuming low salt diet and restricting fluids. Per pt, no concerns at this time. Pt states If I wasn't feeling well I would call the office tomake an appt . RN advised pt continue to monitor and f/u as needed. Pt agrees. Will forward to PCP as FYI. * Telephone Encounter - Katie Juancho - 11/30/2022 3:32 PM EDT Tc from [place] [facility] calling to inform PCP that pt has gained 2.2 lbs in one day. documented in this encounter Plan of Treatment Not on file documented as of this encounter Visit Diagnoses Not on filedocumented in this encounter Care Teams Radiographer Relationship Specialty Start Date End Date Delmer Dunlap MD [address] [place] [phone] PCP - General Internal Medicine 04/04/11 [facility] 03/18/24 documented as of this encounter
--- OUTSIDE RECORDS SUMMARY | 2024-04-04 13:10 | XMS_ITS | Encounter Summary ---
Author Organization [employer] Address 75 [facility] 7 [place] [address] Care Team Providers Care Bar Roller Name Role Phone Delmer Dunlap MD Primary Care Provider [phone] Reason for Visit * Reason Comments Med Refill Encounter Details Date Type Department Care Team ([facility] Contact Info) Description 02/22/2023 Refill [facility] CH[facility] MED & PEDS [address] [place], [place] [phone] Delmer Dunlap MD [address] [place] [address] Social History Tobacco Use Types Packs/Day Years [...] on filedocumented in this encounter Care Teams Bar Roller Relationship Specialty Start Date End Date Delmer Dunlap MD [address] [place] [address] PCP - General Internal Medicine 04/04/11 [facility] 03/18/24 documented as of this encounter
--- OUTSIDE RECORDS SUMMARY | 2024-04-04 13:10 | XMS_ITS | Encounter Summary ---
Author Organization [employer] Address 75 [facility] 7 [place] [address] Care Team Providers Care Organ Grinder Name Role Phone Delmer Dunlap MD Primary Care Provider [phone] Reason for Visit * Reason Onset Date Comments Hospital Follow-up 03/18/2024 Encounter Details Date Type Department Care Team (Late st Contact Info) Description 03/18/2024 Telephone [facility] MEDICINE [address] [place] [address] Delmer Dunlap MD [address] [place] [phone] Hospital Follow-up Social History Tobacco Use Types Packs/Day Years [...] encounter Miscellaneous Notes * Telephone Encounter - Kaylie Doe - 03/18/2024 11:51 AM EST Tc from pt requesting a HDF appt. Hospital: [facility] Date of admission: 03/02/24 Discharge date: 03/17/24 Diagnosed: Chest pain, atrial fibrillation, hypercarbia. *Send message to [facility] Clinical Care Coordinators documented in this encounter Plan of Treatment Not on file documented as of this encounter Visit Diagnoses Not on filedocumented in this encounter Care Teams Organ Grinder Relationship Specialty Start Date End Date Delmer Dunlap MD [address] [place] [phone] PCP - General Internal Medicine 04/04/11 [facility] 03/18/24 documented as of this encounter
--- OUTSIDE RECORDS SUMMARY | 2024-04-04 13:10 | XMS_ITS | Encounter Summary ---
Author Organization [employer] Address 75 [facility] 7t [place] [address] Care Team Providers Care Retail Greeter Name Role Phone Delmer Dunlap MD Primary Care Provider [phone] Encounter Details Date Type Department Care Team (Late st Contact Info) Description 01/23/2023 Telephone [facility] MEDICINE [address] [place] [address] Delmer Dunlap MD [address] [place], [place] [phone] Social History Tobacco Use Types Packs/Day Years Used Date Smoking Tobacco: Never Passive Smoke Exposure: Never Smokeless Tobacco: Never Housing Stability Answer Date Recorded What is your housing situation today? I have ishmael curry 12/20/[address] you [...] on filedocumented in this encounter Care Teams Retail Greeter Relationship Specialty Start Date End Date Delmer Dunlap MD [address] [place] [address] PCP - General Internal Medicine 04/04/11 [facility] 03/18/24 documented as of this encounter
--- OUTSIDE RECORDS SUMMARY | 2024-04-04 13:10 | XMS_ITS | Encounter Summary ---
Author Organization [employer] Address 75 [facility] 7t [place] [address] Care Team Providers Care Automotive Brake Specialist Name Role Phone Delmer Dunlap MD Primary Care Provider [phone] Encounter Details Date Type Department Care Team ([facility] st Contact Info) Description 03/11/2024 Telephone [facility] CHC MED & PEDS [address] [place], [place] [phone] Delemr Dunlap MD [address] [place], [place] [phone] Social History Tobacco Use Types Packs/Day Years [...] encounter Miscellaneous Notes * Telephone Encounter - Trisha Cheri - 03/11/2024 11:29 AM EST Tc from pt spouse calling to inform pt is currently admitted at [facility]. Advices to contact pcp office once discharged. documented in this encounter Plan of Treatment Not on file documented as of this encounter Visit Diagnoses Not on filedocumented in this encounter Care Teams Automotive Brake Specialist Relationship Specialty Start Date End Date Delmer Dunlap MD [address] [place] [address] PCP - General Internal Medicine 04/04/11 [facility] 03/18/24 documented as of this encounter
--- OUTSIDE RECORDS SUMMARY | 2024-04-04 13:10 | XMS_ITS | Encounter Summary ---
Author Organization [employer] Address [address] [facility] 7t [place] [address] Care Team Providers Care Certified Physical Therapist Assistant Name Role Phone Delmer Dunlap MD Primary Care Provider [phone] Reason for Visit * Reason Onset Date Comments Results 04/01/2024 Encounter Details Date Type Department Care Team ([facility] Contact Info) Description 04/01/2024 Telephone [facility] MED & PEDS [address] [place] [address] Madyson Rodriguez RN Results Social History Tobacco Use Types Packs/Day Years [...] the past 12 months, has t he [employer], gas, oil or water company threatened to [...] encounter Miscellaneous Notes * Telephone Encounter - Madyson Rodriguez RN - 04/01/2024 10:41 AM EST TC placed to pt to advise of most recent lab results below. Pt given advisement regarding referral placed to [facility] Hematology and to expect a call from that office soon in regards to scheduling an appt. Pt agreeable to this information and stated understanding. ----- Message from Delmer Dunlap MD sent at 04/01/2024 7:58 AM EST ----- Please call. Labs reviewed: 1) microcytic anemia. Patient will be referred to hematology given the fact that he does not tolerate oral iron 2) kidney function is stable. Patient can continue with torsemide 60 mg in the morning and 40 mg inthe evening ----- Message ----- From: Interface, Lab Results In Sent: 03/31/2024 2:35 PM EST To: Delmer Dunlap MD * Telephone Encounter - Trisha Alonzo - 04/01/2024 10:22 AM EST Tc from pt spouse returning call. * Telephone Encounter - Madyson Rodriguez RN - 04/01/2024 9:01 AM EST TC placed to pt and LVM to call back the office regarding results below ----- Message from Delmer Dunlap MD sent at 04/01/2024 7:58 AM EST ----- Please call. Labs reviewed: 1) microcytic anemia. Patient will be referred to hematology given the fact that he does not tolerate oral iron 2) kidney function is stable. Patient can continue with torsemide 60 mg in the morning and 40 mg inthe evening ----- Message ----- From: Interface, Lab Results In Sent: 03/31/2024 2:35 PM EST To: Delmer Dunalp MD documented in this encounter Plan of Treatment Not on file documented as of this encounter Visit Diagnoses Not on filedocumented in this encounter Additional Health Concerns Assessment Noted Time PHQ-9 Depression Total Score: 0 03/31/19 10:07 AM EST documented as of this encounter Care Teams Certified Physical Therapist Assistant Relationship Specialty Start Date End Date Delmer Dunlap MD [address] [place] [address] PCP - General Internal Medicine 04/04/11 [facility] 03/18/24 documented as of this encounter
--- OUTSIDE RECORDS SUMMARY | 2024-04-04 13:11 | XMS_ITS | Encounter Summary ---
Author Organization [employer] Address [address] [place] [address] [address] [place] [address] Care Team Providers Care Public Health Nutritionist Name Role Phone Delmer Dunlap MD Primary Care Provider [phone]- [phone] Reason for Visit * Reason Onset Date Comments Hospital Follow-up 11/01/2022 Encounter Details Date Type Department Care Team ([facility] st Contact Info) Description 11/01/2022 Telephone [facility] CHC MED & PEDS [address] [place], [place] [phone] Delmer Dunlap MD [address] [place] [address] Hospital Follow-up Social History Tobacco Use Types [...] encounter Miscellaneous Notes * Telephone Encounter - Eunice Mars - 11/01/2022 10:49 AM EDT Fer from Liza with yoselyn ruiz requesting a [facility] follow up. Pt was admitted on 09/18/22 for acute respiratory failure and will be discharged on 11/02/22. Please contact pt for f/u at [phone]. documented in this encounter Plan of Treatment Not on file documented as of this encounter Visit Diagnoses Not on filedocumented in this encounter Care Teams Public Health Nutritionist Relationship Specialty Start Date End Date Delmer Dunlap MD [address] [place] [address] PCP - General Internal Medicine 04/04/11 [facility] 03/18/24 documented as of this encounter
--- OUTSIDE RECORDS SUMMARY | 2024-04-04 13:11 | XMS_ITS | Encounter Summary ---
Author Organization [employer] Address 75 [facility] 7t [place] [address] Care Team Providers Care Animal Eviscerator Name Role Phone Delmer Dunlap MD Primary Care Provider [phone] Reason for Visit * Reason Comments Med Refill Encounter Details Date Type Department Care Team ([facility] st Contact Info) Description 06/25/2023 Refill [facility] MEDICINE [address] [place] [address] Verónica Mckenna MD [address] [place] [address] Social History Tobacco Use Types Packs/Day Years [...] on filedocumented in this encounter Care Teams Animal Eviscerator Relationship Specialty Start Date End Date Delmer Dunlap MD [address] [place] [address] PCP - General Internal Medicine 04/04/11 [facility] 03/18/24 documented as of this encounter
--- OUTSIDE RECORDS SUMMARY | 2024-04-04 13:11 | XMS_ITS | Encounter Summary ---
Author Organization [employer] Address 75 [facility] 7 [place] [address] Care Team Providers Care Biochemistry Specialist Name Role Phone Delmer Dunlap MD Primary Care Provider [phone] Reason for Visit * Reason Comments Med Refill Encounter Details Date Type Department Care Team ([facility] Contact Info) Description 05/28/2023 Refill [facility] CHC MED & PEDS [address] [place], [place] [phone] Delmer Dunlap MD [address] [place] [address] Social History Tobacco Use Types Packs/Day Years [...] on filedocumented in this encounter Care Teams Biochemistry Specialist Relationship Specialty Start Date End Date Delmer Dunlap MD [address] [place] [address] PCP - General Internal Medicine 04/04/11 [facility] 03/18/24 documented as of this encounter
--- OUTSIDE RECORDS SUMMARY | 2024-04-04 13:11 | XMS_ITS | Encounter Summary ---
Author Organization [employer] Address [address] [facility] 7t [place] [address] Care Team Providers Care Seamer Elastic Band Name Role Phone Delmer Dunlap MD Primary Care Provider [phone] Encounter Details Date Type Department Care Team ([facility] st Contact Info) Description 03/18/2024 Telephone [facility] CHC MED & PEDS [address] [place], [place] [phone] Delmer Dunlap MD [address] [place], [place] [phone] Social History Tobacco Use Types Packs/Day Years [...] encounter Miscellaneous Notes * Telephone Encounter - Raven Hart RN - 03/18/2024 12:09 PM EST [facility] with [facility], requested verbal orders for [facility]-Physical therapy. Verbal order given for PT. * Telephone Encounter - Trisha Alonzo - 03/18/2024 11:59 AM EST Tc from [facility]nil with [facility] requesting a call back. Would like to know if pcp would signcare orders . Best contact # [phone]. documented in this encounter Plan of Treatment Not on file documented as of this encounter Visit Diagnoses Not on filedocumented in this encounter Care Teams Seamer Elastic Band Relationship Specialty Start Date End Date Delmer Dunlap MD [address] [place] [address] PCP - General Internal Medicine 04/04/11 [facility] 03/18/24 documented as of this encounter
--- OUTSIDE RECORDS SUMMARY | 2024-04-04 13:11 | XMS_ITS | Encounter Summary ---
Author Organization [employer] Address [address] [place] [address] Care Team Providers Care Diving Judge Name Role Phone Delmer Dunlap MD Primary Care Provider [phone]- [phone] Reason for Visit * Reason Onset Date Comments FYI 11/03/2022 Encounter Details Date Type Department Care Team ([facility] st Contact Info) Description 11/03/2022 Telephone [facility] CHC MED & PEDS [address] [place] [address] Delmer Dunlap MD [address] [place] [address] FYI Social History Tobacco Use Types Packs/Day [...] encounter Miscellaneous Notes * Telephone Encounter - Roscoe Villarreal RN - 11/03/2022 4:43 PM EDT Please see FYI below. * Telephone Encounter - Katie Dawkins - 11/03/2022 3:47 PM EDT Tc from Maria Luz at [facility] calling to inform PCP patient is starting senior living, PT and OT 11/03/22. documented in this encounter Plan of Treatment Not on file documented as of this encounter Visit Diagnoses Not on filedocumented in this encounter Care Teams Diving Judge Relationship Specialty Start Date End Date Delmer Dunlap MD [address] [place] [address] PCP - General Internal Medicine 04/04/11 [facility] 03/18/24 documented as of this encounter
--- OUTSIDE RECORDS SUMMARY | 2024-04-04 13:11 | XMS_ITS | Encounter Summary ---
Author Organization [employer] Address [address] [facility] 7 [place] [address] Care Team Providers Care Allied Health Instructor Name Role Phone Delmer Dunlap MD Primary Care Provider [phone] Reason for Visit * Reason Comments Med Refill Encounter Details Date Type Department Care Team ([facility] Contact Info) Description 06/20/2023 Refill [facility] CHC MED & PEDS [address] [place], [place] [phone] Delmer Dunlap MD 505 [place] [address] Social History Tobacco Use Types Packs/Day Years [...] on filedocumented in this encounter Care Teams Allied Health Instructor Relationship Specialty Start Date End Date Delmer Dunlap MD [address] [place] [address] PCP - General Internal Medicine 04/04/11 [facility] 03/18/24 documented as of this encounter
== END 2024-04-04 13:49 | disposition home or self-care (01) ==
PROVIDERS: PCP Internal Medicine; Visit Provider Nurse Practitioner Family
DX: I50.30 Unspecified diastolic (congestive) heart failure (principal); I48.0 Paroxysmal atrial fibrillation; I10 Essential (primary) hypertension; I25.10 Atherosclerotic heart disease of native coronary artery without angina pectoris; Z95.1 Presence of aortocoronary bypass graft; Z95.2 Presence of prosthetic heart valve; G47.33 Obstructive sleep apnea (adult) (pediatric); E66.01 Morbid (severe) obesity due to excess calories; Z09 Encounter for follow-up examination after completed treatment for conditions other than malignant neoplasm
CPT/HCPCS: 93010; 99214; G2211

== ENCOUNTER → 2024-04-04 12:56 | Outpatient (BNVA) | payer MEDICARE, MEDICAID, SELFPAY | PROVIDERS: PCP Internal Medicine; Visit Provider Nurse Practitioner Family | DX: I11.0 Hypertensive heart disease with heart failure (principal); I50.30 Unspecified diastolic (congestive) heart failure; I25.10 Atherosclerotic heart disease of native coronary artery without angina pectoris; I48.0 Paroxysmal atrial fibrillation; E66.01 Morbid (severe) obesity due to excess calories; G47.33 Obstructive sleep apnea (adult) (pediatric); Z09 Encounter for follow-up examination after completed treatment for conditions other than malignant neoplasm; Z95.1 Presence of aortocoronary bypass graft; Z95.2 Presence of prosthetic heart valve; Z79.899 Other long term (current) drug therapy | CPT/HCPCS: 93005; 99212 ==

== ENCOUNTER 2024-04-16 09:34 | Outpatient (REF) | payer MEDICARE, MEDICAID, SELFPAY ==
--- OUTSIDE RECORDS SUMMARY | 2024-04-16 10:49 | XMS_ITS | Encounter Summary ---
Author Organization [employer] Address 75 [facility] 7t [place] [address] Care Team Providers Care Ob Tech Name Role Phone Delmer Dunlap MD Primary Care Provider [phone] Encounter Details Date Type Department Care Team [...] as of this encounter Plan of Treatment Upcoming Encounters Date Type Department Care Team (Late st Contact Info) Description 06/12/2024 11:30 AM EDT Office Visit [facility] MED & PEDS [address] [place] [address] Delmer Dunlap MD [address] [place] [address] documented as of this encounter Visit Diagnoses Not on filedocumented in this encounter Additional Health Concerns Assessment Noted Time PHQ-9 Depression Total Score: 0 03/31/19 10:07 AM EST documented as of this encounter Care Teams Ob Tech Relationship Specialty Start Date End Date Delmer Dunlap MD [address] [place] [address] PCP - General Internal Medicine 04/04/11 [facility] 03/18/24 documented as of this encounter
--- OUTSIDE RECORDS SUMMARY | 2024-04-16 10:49 | XMS_ITS | Encounter Summary ---
Author Organization [employer] [facility] Address [address] [place] [address] Care Team Providers Care Learning Consultant Name Role Phone Delmer Dunlap MD Primary Care Provider [phone]- [phone] Encounter Details Date Type Department Care Team (Late st Contact Info) Description 03/14/2022 Orders Only [facility] MED & PEDS [address] [place] [address] Magdalena Avila LPN Social History Tobacco Use [...] Description 06/12/2024 11:30 AM EDT Office Visit [facility] MED & PEDS [address] [place] [address] Delmer Dunlap MD [address] [place] [address] documented as of this encounter Visit Diagnoses Not on filedocumented in this encounter Care Teams Learning Consultant Relationship Specialty Start Date End Date Delmer Dunlap MD [address] [place] [address] PCP - General Internal Medicine 04/04/11 [facility] 03/18/24 documented as of this encounter
--- OUTSIDE RECORDS SUMMARY | 2024-04-16 10:49 | XMS_ITS | Encounter Summary ---
Author Organization [employer] Address 75 [facility] 7 [place] [address] Care Team Providers Care Brake Specialist Name Role Phone Delmer Dunlap MD Primary Care Provider [phone] Reason for Visit * Reason Comments Med Refill Encounter Details Date Type Department Care Team ([facility] Contact Info) Description 02/22/2023 Refill [facility] CHC MED & PEDS [address] [place], [place] [phone] Delmer Dunlap MD [address] [place] [address] Social History Tobacco Use Types Packs/Day Years [...] Upcoming Encounters Date Type Department Care Team ([facility] st Contact Info) Description 06/12/2024 11:30 AM EDT Office Visit [facility] MED & PEDS [address] [place] [address] Delmer Dunlap MD [address] [place] [address] documented as of this encounter Visit Diagnoses Not on filedocumented in this encounter Care Teams Brake Specialist Relationship Specialty Start Date End Date Delmer Dunlap MD [address] [place] [address] PCP - General Internal Medicine 04/04/11 [facility] 03/18/24 documented as of this encounter
--- OUTSIDE RECORDS SUMMARY | 2024-04-16 10:49 | XMS_ITS | Encounter Summary ---
Author Organization [employer] [facility] Address [address] [place] [address] Care Team Providers Care General Doc Name Role Phone Delmer Dunlap MD Primary Care Provider [phone]- [phone] Encounter Details Date Type Department Care Team (Late Contact Info) Description 03/23/2022 Orders Only [facility] MEDICINE [address] [place] [address] Delmer Dunlap MD [address] [place], [place] [phone] Social History Tobacco Use Types Packs/Day Years [...] Description 06/12/2024 11:30 AM EDT Office Visit [facility] CHC MED & PEDS [address] [place] [address] Delmer Dunlap MD [address] [place] [address] documented as of this encounter Visit Diagnoses Not on filedocumented in this encounter Care Teams General Doc Relationship Specialty Start Date End Date Delmer Dunlap MD [address] [place] [address] PCP - General Internal Medicine 04/04/11 [facility] 03/18/24 documented as of this encounter
--- OUTSIDE RECORDS SUMMARY | 2024-04-16 10:49 | XMS_ITS | Encounter Summary ---
Author Organization [employer] [facility] Address [address] [place] [address] [place], [place] [address] Care Team Providers Care Heel Seat Filler Name Role Phone Delmer Dunlap MD Primary Care Provider [phone]- [phone] Encounter Details Date Type Department Care Team (Late st Contact Info) Description 11/16/2022 Orders Only [facility] MED & PEDS [address] [place] [address] Delmer Dunlap MD [address] [place] [address] Congestive heart failure, unspecified HF chronicity, unspecified [...] Description 06/12/2024 11:30 AM EDT Office Visit [facility] MED & PEDS [address] [place] [address] Delmer Dunlap MD [address] [place] [address] Scheduled Orders Name Type Priority Associated Diagnoses Orde r Schedule Basic Metabolic Panel Lab Routine Congestive heart failure, unspecified HF chronicity, unspecified heart failure type (CMS/HCC) Expected: 11/16/2022 (Approximate), Expires: 11/17/2023 documented as of this encounter Visit Diagnoses Diagnosis Congestive heart failure, unspecified HF chronicity, unspecified heart failure type (CMS/HCC)- Primary documented in this encounter Care Teams Heel Seat Filler Relationship Specialty Start Date End Date Delmer Dunlap MD [address] [place] [address] PCP - General Internal Medicine 04/04/11 [facility] 03/18/24 documented as of this encounter
--- OUTSIDE RECORDS SUMMARY | 2024-04-16 10:49 | XMS_ITS | Encounter Summary ---
Author Organization [employer] Address 75 [facility] 7t [place] [address] Care Team Providers Care Mining Professionals Name Role Phone Delmer Dunlap MD Primary Care Provider [phone] Encounter Details Date Type Department Care Team ([facility] st Contact Info) Description 03/11/2024 Telephone [facility] CHC MED & PEDS [address] [place], [place] [phone] Delmer Dunlap MD [address] [place], [place] [phone] Social History Tobacco Use Types Packs/Day Years [...] Miscellaneous Notes * Telephone Encounter - Trisha Alonzo - 03/11/2024 11:29 AM EST Tc from pt spouse calling to inform pt is currently admitted at [facility]. Advices to contact pcp office once discharged. documented in this encounter Plan of Treatment Upcoming Encounters Date Type Department Care Team ([facility] st Contact Info) Description 06/12/2024 11:30 AM EDT Office Visit [facility] CHC MED & PEDS [address] [place] [address] Delmer Dunlap MD [address] [place] [address] documented as of this encounter Visit Diagnoses Not on filedocumented in this encounter Care Teams Mining Professionals Relationship Specialty Start Date End Date Delmer Dunlap MD [address] [place] [address] PCP - General Internal Medicine 04/04/11 [facility] 03/18/24 documented as of this encounter
--- OUTSIDE RECORDS SUMMARY | 2024-04-16 10:49 | XMS_ITS | Encounter Summary ---
Author Organization [employer] Address 75 [facility] 7 [place] [address] Care Team Providers Care Curtain Stretcher Name Role Phone Delmer Dunlap MD Primary Care Provider [phone] Reason for Visit * Reason Comments Transition Of Care (Tcm) HDF- scheduled and SDOH screening negative and Tobacco screening negative Encounter Details Date Type Department Care Team ([facility] st Contact Info) Description 03/18/2024 Patient Outreach [facility] MED & PEDS [address] [place], [place] [phone] Delmer Dunlap MD [address] [place] [address] Transition Of Care (Tcm) (HDF- scheduled and [...] 03/18/24 1204 Hospital Discharges and Admission for [facility] Type of Visit Hospital Admission Date of Admission/Visit 03/02/24 Date of Discharge 03/17/24 Facility [facility] Diagnosis Acute on chronic heart failure [...] Wednesdays, and Walk-In Urgent Care Located in [facility] . Patient provided with after-hours line for [facility], , which offer night time triage service and option to transfer to instructional technology instructor provider if needed. CC scanned discharge summary into patient'schart. Biggest concern for appointment at this time is no concerns at the moment. Appropriate screenings completed in anticipation of appointment. documented in this encounter Plan of Treatment Upcoming Encounters Date Type Department Care Team ([facility] st Contact Info) Description 06/12/2024 11:30 AM EDT Office Visit [facility] MED & PEDS [address] [place] [address] Delmer Dunlap MD [address] [place] [address] documented as of this encounter Visit Diagnoses Not on filedocumented in this encounter Care Teams Curtain Stretcher Relationship Specialty Start Date End Date Delmer Dunlap MD [address] [place] [address] PCP - General Internal Medicine 04/04/11 [facility] 03/18/24 documented as of this encounter
--- OUTSIDE RECORDS SUMMARY | 2024-04-16 10:49 | XMS_ITS | Clinical Summary ---
Author Organization [employer] Address [address] [place] [address] 7t [place] [address] Care Team Providers Care High Lead Yarder Name Role Phone Delmer Dunlap MD Primary Care Provider +1- [phone] Allergies No known active allergies Medications ammonium lactate (Lac-Hydrin) 12 % lotion Use topically BID in dry skin 11/22/19 22 Active nystatin (Nystop) 539159 UNIT/GM powder apply by topical route 2 [...] MORNING 90 tablet 5 04/26/19 24 Active Aspirin Adult Low Strength 81 MG EC tablet TAKE ONE TABLET EVERY MORNING 90 tablet 3 10/15/19 24 Active Multiple Vitamin (Multivitamin) tablet TAKE ONE TABLET AT NOON 90 tablet 3 10/15/19 24 Active melatonin 5 MG tablet TAKE 1 TABLET EVERY NIGHT AT BEDTIME 30 tablet 11 11/14/19 24 Active PARoxetine (Paxil) 20 MG tabletIndicatio ns:Recurrent major depressive disorder, in partial remission (CMS/HCC) TAKE ONE TABLET EVERY EVENING 30 tablet 2 02/13/20 24 Active Xarelto 20 MG tablet TAKE ONE TABLET EVERY EVENING 30 tablet 5 02/13/20 24 Active atorvastatin (Lipitor) 80 MG tabletIndicatio ns:Atherosclero sis of coronary artery of [place] heart without angina pectoris, unspecified vessel or [...] tablet 03/31/19 25 025 Active nystatin (Mycostatin) 419643 UNIT/GM powderIndicatio ns:Intertrigo Apply topically 2 times daily. 60 g 3 03/31/19 25 026 Active amiodarone (Pacerone) 200 MG tablet TAKE ONE TABLET EVERY MORNING 90 tablet 1 04/15/19 25 Active levETIRAcetam (Keppra) 500 MG tablet TAKE ONE TABLET IN THE MORNING AND EVENING 180 tablet 1 04/15/19 25 Active potassium chloride CR (Klor-Con M20) 20 MEQ ER tablet TAKE ONE TABLET IN THE MORNING AND EVENING 60 tablet 3 04/15/19 25 Active midodrine (Proamatine) 5 MG tablet Take 5 mg by mouth. BID 025 Discontinued(Me d list cleanup (will not trigger notification to Pharmacy)) lisinopril 10 MG tablet TAKE ONE TABLET EVERY MORNING 90 tablet 1 08/14/19 24 025 Discontinued(Me d list cleanup (will not trigger notification to Pharmacy)) amiodarone (Pacerone) 200 MG tablet TAKE ONE TABLET EVERY MORNING 90 tablet 1 10/15/19 24 025 Discontinued levETIRAcetam (Keppra) 500 MG tablet TAKE ONE TABLET IN THE MORNING AND EVENING 180 tablet 1 10/15/19 24 025 Discontinued potassium chloride CR (Klor-Con M20) 20 MEQ ER tablet TAKE ONE TABLET IN THE MORNING AND EVENING 60 tablet 3 12/11/19 24 025 Discontinued levothyroxine [...] Encounters Date Type Department Care Team Description 04/14/2024 Refill [facility] MED & PEDS [address] [facility] [place] [address] Delmer Dunlap MD 04/12/2024 Refill [facility] MED & PEDS [address] [facility] [place] [address] Delmer Dunlap MD 04/01/2024 Telephone [facility] MED & PEDS [address] [place] [address] Madyson Rodriguez RN Results 03/31/2024 10:15 AM EST Office Visit [facility] MED & PEDS [address] [place] [address] Delmer Dunlap MD Hypertensive heart disease without congestive heart failure (Primary Dx); Chronic heart failure, unspecified heart failure type (CMS/HCC); Slow transit constipation; Intertrigo; Other iron deficiency anemia; Acute renal failure, unspecified acute renal failure type (CMS/HCC) 03/31/2024 Travel 03/18/2024 Refill [facility] MEDICINE [address] [place] [address] Delmer Dunlap MD 03/18/2024 Patient Outreach [facility] MED & PEDS [address] [place] [address] Delmer Dunlap MD Transition Of Care (Tcm) (HDF- scheduled and SDOH screening negative and Tobacco screening negative) 03/18/2024 Telephone [facility] MED & PEDS 505 [facility] [place] [address] Delmer Dunlap MD 03/18/2024 Telephone [facility] MEDICINE [address] [place] [address] Delmer Dunlap MD Hospital Follow-up 03/12/2024 Refill [facility] MED & PEDS [address] [place] [address] Delmer Dunlap MD Atherosclerosis of coronary artery of [place] heart without angina pectoris, unspecified vessel or lesion type 03/11/2024 Telephone [facility] CH[facility] MED & PEDS [address] [place] [address] Delmer Dunlap MD 02/12/2024 Refill [facility] MEDICINE [address] [place] [address] Delmer Dunlap MD Recurrent major depressive disorder, [...] 03/31/2024 10:05 AM EST Plan of Treatment Upcoming Encounters Date Type Department Care Team (Late st Contact Info) Description 06/12/2024 11:30 AM EDT Office Visit [facility] MED & PEDS [address] [place] [address] Delmer Dunlap MD 505 [place] [address] Health Maintenance Due Date Last Done Comments [...] Procedure Name Priority Date/Time Associated Diagnosis Comments AMB REFERRAL TO HEMATOLOGY / ONCOLOGY Routine 04/04/2024 Other iron deficiency anemia CBC WITH AUTO DIFFERENTIAL Routine 03/31/2024 11:17 AM EST Chronic heart failure, unspecified heart failure type (CMS/HCC) BASIC METABOLIC PANEL Routine 03/31/2024 11:15 AM EST Chronic heart failure, unspecified heart failure type (CMS/HCC) LIPID PANEL, STANDARD Routine 01/14/2021 10:23 AM EST from Last 3 Months or Most Recently Relevant to Health Maintenance Results * Referral to Hematology / Oncology (04/04/2024) us Delmer Dunlap MD OUTPATIENT REFERRAL ORDERAB LES Final Result * (ABNORMAL) CBC auto differential (03/31/2024 11:17 AM EST) White Blood Count 4.0(L) 4.8 - 10.8 X10*3/uL [facility] Red Blood Count 4.08(L) 4.60 - 5.80 X10*6/uL [facility] Hemoglobin 11.3(L) 14.0 - 18.0 g/dl [facility] Hematocrit 37.2(L) 42.0 - 52.0 % [facility] Mean Corpuscular Volume 91.2 80.0 - 98.0 fL [facility] Mean Corpuscular Hemoglobin 27.7 27.0 - 33.0 pg [facility] Mean Corpuscular HGB Conc 30.4(L) 31.0 - 36.0 g/dl [facility] Red Cell Distribution Width 14.6 11.0 - 16.0 % [facility] Platelet Count 175 160 - 400 X10*3/uL [facility] Mean Platelet Volume 12.2 9.4 - 12.4 fL [facility] Neutrophils Percent Auto 68.1 45 - 73 % [facility] Imm Gran Pct Auto 0.5(H) 0.0 - 0.4 % [facility] Lymphocytes Percent Auto 18.6(L) 20 - 40 % [facility] Monocytes Percent Auto 10.8 2 - 11 % [facility] Eosinophils Percent Auto 1.5 0 - 4 % [facility] Basophils Percent Auto 0.5 0 - 2 % [facility] NRBC Pct Auto 0.0 0.0 - 0.2 /100WBC [facility] Neutrophils Absolute Auto 2.7 2.0 - 8.3 x10*3/uL [facility] Imm Gran Abs Auto 0.02 0.00 - 0.03 X10*3/uL [facility] Lymphocytes Absolute Auto 0.7(L) 1.2 - 4.9 X10*3/uL [facility] Monocytes Absolute Auto 0.4 0.1 - 1.2 X10*3/uL [facility] Eosinophils Absolute Auto 0.1 0.0 - 0.4 X10*3/uL [facility] Basophils Absolute Auto 0.0 0.0 - 0.2 X10*3/uL [facility] NRBC Abs Auto 0.000 0.0 - 0.012 X10*3/uL [facility] Blood Venous blood specimen / Unknown 03/31/2024 11:17 AM EST 03/31/2024 2:21 PM EST us Delmer Dunlap MD LAB BLOOD ORDERABLES Final Result Performing Organization Address [facility]/ZIP Co de Phone Number [facility] [address] [place] [address] [phone] * (ABNORMAL) Basic Metabolic Panel (03/31/2024 11:15 AM EST) Sodium 145 135 - 145 mmol/L [facility] Potassium 4.0 3.3 - 5.1 mmol/L [facility] Chloride 98 96 - 108 mmol/L [facility] Carbon Dioxide 38(H) 22 - 29 mmol/L [facility] Anion Gap 13 12 - 20 [facility] Urea Nitrogen (BUN) 18(H) 9 - 16 mg/dL [facility] Creatinine, Serum 1.21 0.5 - 1.4 mg/dL [facility] Estimated Glomerular Filt Rate 59 [facility] Comment:Chronic Kidney Disea se: Estimated GFR < 60 mL/min/[id number] Kidney Disease: Estimated GFR < 15 mL/min/1.73m2 Glucose 129(H) 60 - 115 mg/dL [facility] Calcium 9.4 8.4 - 10.2 mg/dL [facility] Blood Venous blood specimen / Unknown 03/31/2024 11:15 AM EST 03/31/2024 2:21 PM EST us Delmer Dunlap MD LAB BLOOD ORDERABLES Final Result Performing Organization Address [facility]/ZIP Co de Phone Number [facility] [address] [place] [address] [phone] * (ABNORMAL) LIPID PANEL, STANDARD (01/14/2021 [...] ?? Larry ALVAREZ et al. SHASHANK. 2013;310(19): 8570-6564 ?? ([email or web address]) Non-HDL Cholesterol 120 <130 mg/dL (calc) [facility] [...] Re sult [facility] [address] from Last 3 Months or Most Recently Relevant to Health Maintenance Insurance MEDICARE [facility] Care Teams High Lead Yarder Relationship Specialty Start Date End Date Delmer Dunlap MD [address] [place] [address] PCP - General Internal Medicine 04/04/11 [facility] 03/18/24
--- OUTSIDE RECORDS SUMMARY | 2024-04-16 10:49 | XMS_ITS | Encounter Summary ---
Author Organization [employer] Address [address] [facility] 7t [place] [address] Care Team Providers Care Ways Operator Name Role Phone Delmer Dunlap MD Primary Care Provider [phone] Reason for Visit * Reason Onset Date Comments Results 04/01/2024 Encounter Details Date Type Department Care Team ([facility] Contact Info) Description 04/01/2024 Telephone [facility] MED & PEDS [address] [place] [address] Madyson Rodriguez RN Results Social History Tobacco [...] the past 12 months, has t he [employer], gas, oil or water company threatened to [...] Pt given advisement regarding referral placed to [facility] Hematology and to expect a call from [...] 2:35 PM EST To: Delmer Dunlap MD documented in this encounter Plan of Treatment Upcoming Encounters Date Type Department Care Team (Late st Contact Info) Description 06/12/2024 11:30 AM EDT Office Visit [facility] MED & PEDS [address] [place] [address] Delmer Dunlap MD [address] [place] [address] documented as of this encounter Visit Diagnoses Not on filedocumented in this encounter Additional Health Concerns Assessment Noted Time PHQ-9 Depression Total Score: 0 03/31/19 10:07 AM EST documented as of this encounter Care Teams Ways Operator Relationship Specialty Start Date End Date Delmer Dunlap MD [address] [place] [address] PCP - General Internal Medicine 04/04/11 [facility] 03/18/24 documented as of this encounter
--- OUTSIDE RECORDS SUMMARY | 2024-04-16 10:49 | XMS_ITS | Encounter Summary ---
Author Organization [employer] [facility] Address [address] [place] [address] [address] [address] Care Team Providers Care Singer Back Tender Name Role Phone Delemr Dunlap MD Primary Care Provider [phone]- [phone] Encounter Details Date Type Department Care Team (Late st Contact Info) Description 06/05/2022 Orders Only [facility] MED & PEDS [address] [place] [address] Delmer Dunlap MD [address] [place] [address] Social History Tobacco Use Types Packs/Day Years [...] 06/12/2024 11:30 AM EDT Office Visit [facility] MED & PEDS [address] [place] [address] Delmer Dunlap MD [address] [place] [address] documented as of this encounter Visit Diagnoses Not on filedocumented in this encounter Care Teams Singer Back Tender Relationship Specialty Start Date End Date Delmer Dunlap MD [address] [place] [address] PCP - General Internal Medicine 04/04/11 [facility] 03/18/24 documented as of this encounter
--- OUTSIDE RECORDS SUMMARY | 2024-04-16 10:49 | XMS_ITS | Encounter Summary ---
Author Organization [employer] Address [address] [place] [address] Care Team Providers Care Otr Tanker Truck Driver Name Role Phone Delmer Dunlap MD Primary Care Provider [phone]- [phone] Reason for Visit * Reason Onset Date Comments Lab Orders 05/05/2022 Encounter Details Date Type Department Care Team (Late st Contact Info) Description 05/05/2022 Telephone [facility] MEDICINE [address] [place] [address] Delmer Dunlap MD [address] [place] [address] Lab Orders Social History Tobacco Use Types [...] June) Call to Aracely informed. Advised of [facility] lab hours. She verbalizes understanding and agrees. [...] to plan. * Telephone Encounter - Percy Keyur - 05/05/2022 4:38 PM EST Tc from requesting an order for blood work, Please contact pt at [phone] documented in this encounter Plan of Treatment Upcoming Encounters Date Type Department Care Team (Late st Contact Info) Description 06/12/2024 11:30 AM EDT Office Visit [facility] MED & PEDS [address] [place] [address] Delmer Dunlap MD [address] [place] [address] documented as of this encounter Visit Diagnoses Not on filedocumented in this encounter Care Teams Otr Tanker Truck Driver Relationship Specialty Start Date End Date Delmer Dunlap MD [address] [place] [address] PCP - General Internal Medicine 04/04/11 [facility] 03/18/24 documented as of this encounter
--- OUTSIDE RECORDS SUMMARY | 2024-04-16 10:49 | XMS_ITS | Encounter Summary ---
Author Organization [employer] Address [address] [facility] 7 [place] [address] Care Team Providers Care Survey Research Center Director Name Role Phone Delmer Dunlap MD Primary Care Provider [phone]- [phone] Reason for Visit * Reason Onset Date Comments FYI 11/30/2022 Encounter Details Date Type Department Care Team ([facility] st Contact Info) Description 11/30/2022 Telephone [facility] CHC MED & PEDS [address] [place] [address] Delmer Dunlap MD [address] [place] [address] FYI Social History Tobacco Use Types Packs/Day [...] PCP as FYI. * Telephone Encounter - Katieamadou Hoangz - 11/30/2022 3:32 PM EDT Tc from [place] at [facility] Care calling to inform PCP that pt has gained 2.2 lbs in one day. documented in this encounter Plan of Treatment Upcoming Encounters Date Type Department Care Team (Late st Contact Info) Description 06/12/2024 11:30 AM EDT Office Visit [facility] MED & PEDS [address] [place] [address] Delmer Dunlap MD [address] [place] [address] documented as of this encounter Visit Diagnoses Not on filedocumented in this encounter Care Teams Survey Research Center Director Relationship Specialty Start Date End Date Delmer Dunlap MD [address] [place] [address] PCP - General Internal Medicine 04/04/11 [facility] 03/18/24 documented as of this encounter
--- OUTSIDE RECORDS SUMMARY | 2024-04-16 10:49 | XMS_ITS | Encounter Summary ---
Author Organization [employer] [facility] Address [address] [place] [address] [address] [address] Care Team Providers Care Repairer Welding Systems And Equipment Name Role Phone Delmer Dunlap MD Primary Care Provider [phone]- [phone] Reason for Visit * Reason Comments Med Refill Encounter Details Date Type Department Care Team (Late st Contact Info) Description 03/20/2022 Refill [facility] MED & PEDS [address] [place] [address] Delmer Dunlap MD [address] [place] [address] Atherosclerosis of coronary artery of [place] heart without angina pectoris, unspecified vessel or [...] Description 06/12/2024 11:30 AM EDT Office Visit [facility] MED & PEDS [address] [place] [address] Delmer Dunlap MD [address] [place] [address] documented as of this encounter Visit Diagnoses Diagnosis Atherosclerosis of coronary artery of [place] heart without angina pectoris, unspecified vessel or lesion type- Primary Recurrent major depressive disorder, in partial remission (CMS/[facility]) Other iron deficiency anemia documented in this encounter Care Teams Repairer Welding Systems And Equipment Relationship Specialty Start Date End Date Delmer Dunlap MD [address] [place] [address] PCP - General Internal Medicine 04/04/11 [facility] 03/18/24 documented as of this encounter
--- OUTSIDE RECORDS SUMMARY | 2024-04-16 10:49 | XMS_ITS | Encounter Summary ---
Author Organization [employer] Address [address] [facility] 7t [place] [address] Care Team Providers Care Water Aerobics Instructor Name Role Phone Delmer Dunlap MD Primary Care Provider [phone] Encounter Details Date Type Department Care Team (Late st Contact Info) Description 01/23/2023 Telephone [facility] MEDICINE [address] [place] [address] Delmer Dunlap MD [address] [place], [place] [phone] Social History Tobacco Use Types Packs/Day Years [...] Description 06/12/2024 11:30 AM EDT Office Visit [facility] MED & PEDS [address] [place] [address] Delmer Dunlap MD [address] [place] [address] documented as of this encounter Visit Diagnoses Not on filedocumented in this encounter Care Teams Water Aerobics Instructor Relationship Specialty Start Date End Date Delmer Dunlap MD [address] [place] [address] PCP - General Internal Medicine 04/04/11 [facility] 03/18/24 documented as of this encounter
--- OUTSIDE RECORDS SUMMARY | 2024-04-16 10:49 | XMS_ITS | Encounter Summary ---
Author Organization [employer] [facility] Address [address] [place] [address] Care Team Providers Care Wharf Builder Name Role Phone Delmer Dunlap MD Primary Care Provider [phone] Reason for Referral * Consultation (Routine) - Authorized Specialty Diagnoses / Procedures Referred By Kenny cee Referred To Contact Hematology and Oncology Diagnoses Other iron deficiency anemia Delmer Dunlap MD [address] [place] [address] Phone: tel: fax: Hematology & Oncology[address] Phone: tel: fax: Referral ID Status Reason Start Date Expiration Date Visits Requested Visits Authorized [id number] Authorized Specialty Services Required 03/31/2024 03/31/2025 1 1 Reason for Visit * Reason Comments Hospital discharge follow-up Encounter Details Date Type Department Care Team (Late st Contact Info) Description 03/31/2024 10:15 AM EST Office Visit [facility] CHC MED & PEDS [address] [place] [address] Delmer Dunlap MD [address] [place] [address] Hypertensive heart disease without congestive heart failure [...] on torsemide. Discharge with the recommendation to [facility] physical therapy and home services. 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 Intertrigo - nystatin (Mycostatin) 755143 UNIT/GM powder; Apply topically 2 times daily. [...] Description 06/12/2024 11:30 AM EDT Office Visit [facility] MED & PEDS [address] [place] [address] Delmer Dunlap MD [address] [place] [address] documented as of this encounter Procedures Procedure [...] (CMS/HCC) documented in this encounter Results * Referral to Hematology / Oncology (04/04/2024) us Delmer Dunlap MD OUTPATIENT REFERRAL ORDERAB LES Final Result * (ABNORMAL) CBC auto differential (03/31/2024 11:17 AM EST) White Blood Count 4.0(L) 4.8 - 10.8 X10*3/uL [facility] Red Blood Count 4.08(L) 4.60 - 5.80 X10*6/uL [facility] Hemoglobin 11.3(L) 14.0 - 18.0 g/dl [facility] Hematocrit 37.2(L) 42.0 - 52.0 % [facility] Mean Corpuscular Volume 91.2 80.0 - 98.0 fL [facility] Mean Corpuscular Hemoglobin 27.7 27.0 - 33.0 pg [facility] Mean Corpuscular HGB Conc 30.4(L) 31.0 - 36.0 g/dl [facility] Red Cell Distribution Width 14.6 11.0 - 16.0 % [facility] Platelet Count 175 160 - 400 X10*3/uL [facility] Mean Platelet Volume 12.2 9.4 - 12.4 fL [facility] Neutrophils Percent Auto 68.1 45 - 73 % [facility] Imm Gran Pct Auto 0.5(H) 0.0 - 0.4 % [facility] Lymphocytes Percent Auto 18.6(L) 20 - 40 % [facility] Monocytes Percent Auto 10.8 2 - 11 % [facility] Eosinophils Percent Auto 1.5 0 - 4 % [facility] Basophils Percent Auto 0.5 0 - 2 % [facility] NRBC Pct Auto 0.0 0.0 - 0.2 /100WBC [facility] Neutrophils Absolute Auto 2.7 2.0 - 8.3 x10*3/uL [facility] Imm Gran Abs Auto 0.02 0.00 - 0.03 X10*3/uL [facility] Lymphocytes Absolute Auto 0.7(L) 1.2 - 4.9 X10*3/uL [facility] Monocytes Absolute Auto 0.4 0.1 - 1.2 X10*3/uL [facility] Eosinophils Absolute Auto 0.1 0.0 - 0.4 X10*3/uL [facility] Basophils Absolute Auto 0.0 0.0 - 0.2 X10*3/uL [facility] NRBC Abs Auto 0.000 0.0 - 0.012 X10*3/uL [facility] Blood Venous blood specimen / Unknown 03/31/2024 11:17 AM EST 03/31/2024 2:21 PM EST us Delmer Dunlap MD LAB BLOOD ORDERABLES Final Result [facility] [address] [place] [address] [phone] * (ABNORMAL) Basic Metabolic Panel (03/31/2024 11:15 AM EST) Sodium 145 135 - 145 mmol/L [facility] Potassium 4.0 3.3 - 5.1 mmol/L [facility] Chloride 98 96 - 108 mmol/L [facility] Carbon Dioxide 38(H) 22 - 29 mmol/L [facility] Anion Gap 13 12 - 20 [facility] Urea Nitrogen (BUN) 18(H) 9 - 16 mg/dL [facility] Creatinine, Serum 1.21 0.5 - 1.4 mg/dL [facility] Estimated Glomerular Filt Rate 59 [facility] Comment:Chronic Kidney Disea se: Estimated GFR < 60 mL/min/1.38o2Hcodoq Kidney Disease: Estimated GFR < 15 mL/min/1.73m2 Glucose 129(H) 60 - 115 mg/dL [facility] Calcium 9.4 8.4 - 10.2 mg/dL [facility] Blood Venous blood specimen / Unknown 03/31/2024 11:15 AM EST 03/31/2024 2:21 PM EST Delmer Dunlap MD LAB BLOOD ORDERABLES Final Result [facility] [address] [place] [address] [phone] documented in this encounter Visit Diagnoses [...] documented as of this encounter Care Teams Wharf Builder Relationship Specialty Start Date End Date Delmer Dunlap MD [address] [place] [address] PCP - General Internal Medicine 04/04/11 [facility] 03/18/24 documented as of this encounter
--- OUTSIDE RECORDS SUMMARY | 2024-04-16 10:49 | XMS_ITS | Encounter Summary ---
Author Organization [facility] [employer] [facility] Address [address] [place] [address] Care Team Providers Care Digital Sales Assistant Name Role Phone Delmer Dunlap MD Primary Care Provider [phone]- [phone] Encounter Details Date Type Department Care Team (Late Contact Info) Description 11/24/2022 [facility] Information Management [address] [place], [place] [phone] Delmer Dunlap MD [address] [place] [address] Social History Tobacco Use Types Packs/Day Years [...] Encounters Date Type Department Care Team (Late Contact Info) Description 06/12/2024 11:30 AM EDT Office Visit [facility]C MED & PEDS [address] [place] [address] Delmer Dunlap MD [address] [place] [address] documented as of this encounter Visit Diagnoses Not on filedocumented in this encounter Care Teams Digital Sales Assistant Relationship Specialty Start Date End Date Delmer Dunlap MD [address] [place] [address] PCP - General Internal Medicine 04/04/11 [facility] 03/18/24 documented as of this encounter
--- OUTSIDE RECORDS SUMMARY | 2024-04-16 10:49 | XMS_ITS | Encounter Summary ---
Author Organization [employer] Address 75 [facility] 7 [place] [address] Care Team Providers Care Clinic Scheduler Name Role Phone Delmer Dunlap MD Primary Care Provider [phone] Reason for Visit * Reason Onset Date Comments Med Refill 03/18/2024 Encounter Details Date Type Department Care Team (Late st Contact Info) Description 03/18/2024 Refill [facility] MEDICINE [address] [place] [address] Delmer Dunlap MD [address] [place] [phone] Social History Tobacco Use Types Packs/Day Years [...] Fe) MG tablet To be sent to: [facility] - [place], [place] - [address] [place] [address] documented in this encounter Plan of Treatment Upcoming Encounters Date Type Department Care Team (Late st Contact Info) Description 06/12/2024 11:30 AM EDT Office Visit [facility] CHC MED & PEDS 505 [place] [address] Delmer Dunlap MD 505 [place] [address] documented as of this encounter Visit Diagnoses Not on filedocumented in this encounter Care Teams Clinic Scheduler Relationship Specialty Start Date End Date Delmer Dunlap MD 505 [place] [address] PCP - General Internal Medicine 04/04/11 [facility] 03/18/24 documented as of this encounter
--- OUTSIDE RECORDS SUMMARY | 2024-04-16 10:50 | XMS_ITS | Encounter Summary ---
Author Organization [employer] Address 75 [facility] 7 [place] [address] Care Team Providers Care Equipment Operator Name Role Phone Delmer Dunlap MD Primary Care Provider [phone] Reason for Visit * Reason Comments Med Refill Encounter Details Date Type Department Care Team ([facility] Contact Info) Description 05/28/2023 Refill [facility] CHC MED & PEDS 505 [place], [place] [phone] Delmer Dunlap MD 505 [place] [address] Social History Tobacco Use Types Packs/Day Years [...] Upcoming Encounters Date Type Department Care Team ([facility] st Contact Info) Description 06/12/2024 11:30 AM EDT Office Visit [facility] MED & PEDS 505 [place] [address] Delmer Dunlap MD [address] [place] [address] documented as of this encounter Visit Diagnoses Not on filedocumented in this encounter Care Teams Equipment Operator Relationship Specialty Start Date End Date Delmer Dunlap MD 505 [place] [address] PCP - General Internal Medicine 04/04/11 [facility] 03/18/24 documented as of this encounter
--- OUTSIDE RECORDS SUMMARY | 2024-04-16 10:50 | XMS_ITS | Encounter Summary ---
Author Organization [employer] Address 75 [facility] 7 [place] [address] Care Team Providers Care Wire Stretcher Name Role Phone Delmer Dunlap MD Primary Care Provider [phone] Reason for Visit * Reason Onset Date Comments Hospital Follow-up 03/18/2024 Encounter Details Date Type Department Care Team (Late st Contact Info) Description 03/18/[address] [facility] MEDICINE [address] [place] [address] Delmer Dunlap MD [address] [place] [phone] Hospital Follow-up Social History Tobacco Use Types [...] from pt requesting a HDF appt. Hospital: [facility] Date of admission: 03/02/24 Discharge date: 03/17/24 Diagnosed: Chest pain, atrial fibrillation, hypercarbia. *Send message to [place] Clinical Care Coordinators documented in this encounter Plan of Treatment Upcoming Encounters Date Type Department Care Team (Late st Contact Info) Description 06/12/2024 11:30 AM EDT Office Visit [facility] CHC MED & PEDS 505 [place] [address] Delmer Dunlap MD 505 [place] [address] documented as of this encounter Visit Diagnoses Not on filedocumented in this encounter Care Teams Wire Stretcher Relationship Specialty Start Date End Date Delmer Dunlap MD [address] [place] [address] PCP - General Internal Medicine 04/04/11 [facility] 03/18/24 documented as of this encounter
--- OUTSIDE RECORDS SUMMARY | 2024-04-16 10:50 | XMS_ITS | Encounter Summary ---
Author Organization [employer] Address 75 [facility] 7t [place] [address] Care Team Providers Care Film Booker Name Role Phone Delmer Dunlap MD Primary Care Provider [phone] Reason for Visit * Reason Comments Med Refill Encounter Details Date Type Department Care Team ([facility] st Contact Info) Description 06/25/2023 Refill [facility] MEDICINE 230 [place] [address] Verónica Mckenna MD 505 [place] [address] Social History Tobacco Use Types Packs/Day Years [...] EDT Office Visit [facility] MED & PEDS 505 [place] [address] Delmer Dunlap MD 505 [place] [address] documented as of this encounter Visit Diagnoses Not on filedocumented in this encounter Care Teams Film Booker Relationship Specialty Start Date End Date Delmer Dunlap MD 505 [place] [address] PCP - General Internal Medicine 04/04/11 [facility] 03/18/24 documented as of this encounter
--- OUTSIDE RECORDS SUMMARY | 2024-04-16 10:50 | XMS_ITS | Encounter Summary ---
Author Organization [employer] Address 75 [facility] 7 [place] [address] Care Team Providers Care Concrete Engineer Name Role Phone Delmer Dunlap MD Primary Care Provider [phone] Reason for Visit * Reason Comments Med Refill Encounter Details Date Type Department Care Team ([facility] Contact Info) Description 06/20/2023 Refill [facility] CHC MED & PEDS 505 [place], [place] [phone] Delmer Dunlap MD 505 [place] [address] Social History Tobacco Use Types Packs/Day Years [...] Upcoming Encounters Date Type Department Care Team ([facility] st Contact Info) Description 06/12/2024 11:30 AM EDT Office Visit [facility] MED & PEDS 505 [place] [address] Delmer Dunlap MD 505 [place] [address] documented as of this encounter Visit Diagnoses Not on filedocumented in this encounter Care Teams Concrete Engineer Relationship Specialty Start Date End Date Delmer Dunlap MD 505 [place] [address] PCP - General Internal Medicine 04/04/11 [facility] 03/18/24 documented as of this encounter
--- OUTSIDE RECORDS SUMMARY | 2024-04-16 10:50 | XMS_ITS | Encounter Summary ---
Author Organization [employer] Address 75 [facility] 7 [place] [address] Care Team Providers Care Laundry Machine Operator Name Role Phone Delmer Dunlap MD Primary Care Provider [phone] Reason for Visit * Reason Comments Med Refill Encounter Details Date Type Department Care Team ([facility] st Contact Info) Description 04/14/2024 Refill [facility] CHC MED & PEDS 505 [place], [place] [phone] Delmer Dunlap MD 505 [place] [address] Social History Tobacco Use Types Packs/Day Years [...] Upcoming Encounters Date Type Department Care Team ([facility] st Contact Info) Description 06/12/2024 11:30 AM EDT Office Visit [facility] MED & PEDS 505 [place] [address] Delmer Dunlap MD [address] [place] [address] documented as of this encounter Visit Diagnoses Not on filedocumented in this encounter Additional Health Concerns Assessment Noted Time PHQ-9 Depression Total Score: 0 03/31/19 25 10:07 AM EST documented as of this encounter Care Teams Laundry Machine Operator Relationship Specialty Start Date End Date Delmer Dunlap MD 505 [place] [address] PCP - General Internal Medicine 04/04/11 [facility] 03/18/24 documented as of this encounter
--- OUTSIDE RECORDS SUMMARY | 2024-04-16 10:50 | XMS_ITS | Encounter Summary ---
Author Organization [employer] Address 75 [facility] 7 [place] [address] Care Team Providers Care Color Card Maker Name Role Phone Delmer Dunlap MD Primary Care Provider [phone] Reason for Visit * Reason Comments Med Refill Encounter Details Date Type Department Care Team ([facility] st Contact Info) Description 04/12/2024 Refill [facility] CHC MED & PEDS 505 [place], [place] [phone] Delmer Dunlap MD 505 [place] [address] Social History Tobacco Use Types Packs/Day Years [...] Upcoming Encounters Date Type Department Care Team ([facility] st Contact Info) Description 06/12/2024 11:30 AM EDT Office Visit [facility] MED & PEDS 505 [place] [address] Delmer Dunlap MD 505 [place] [address] documented as of this encounter Visit Diagnoses Not on filedocumented in this encounter Additional Health Concerns Assessment Noted Time PHQ-9 Depression Total Score: 0 03/31/19 25 10:07 AM EST documented as of this encounter Care Teams Color Card Maker Relationship Specialty Start Date End Date Delmer Dunlap MD 505 [place] [address] PCP - General Internal Medicine 04/04/11 [facility] 03/18/24 documented as of this encounter
--- OUTSIDE RECORDS SUMMARY | 2024-04-16 10:50 | XMS_ITS | Encounter Summary ---
Author Organization [employer] Address [address] [place] [address] Care Team Providers Care Mothercraft Nurse Name Role Phone Delmer Dunlap MD Primary Care Provider [phone] Reason for Visit * Reason Onset Date Comments FYI 11/03/2022 Encounter Details Date Type Department Care Team ([facility] st Contact Info) Description 11/03/2022 Telephone [facility] CHC MED & PEDS 505 [place] [address] Delmer Dunlap MD 505 [place] [address] FYI Social History Tobacco Use Types Packs/Day [...] PM EDT Tc from [facility] at [facility] calling to inform PCP patient is starting prison, PT and OT 11/03/22. documented in this encounter Plan of Treatment Upcoming Encounters Date Type Department Care Team (Late st Contact Info) Description 06/12/2024 11:30 AM EDT Office Visit [facility] MED & PEDS 505 [place] [address] Delmer Dunlap MD 505 [place] [address] documented as of this encounter Visit Diagnoses Not on filedocumented in this encounter Care Teams Mothercraft Nurse Relationship Specialty Start Date End Date Delmer Dunlap MD 505 [place] [address] PCP - General Internal Medicine 04/04/11 [facility] 03/18/24 documented as of this encounter
--- OUTSIDE RECORDS SUMMARY | 2024-04-16 10:50 | XMS_ITS | Encounter Summary ---
Author Organization [employer] Address 75 [facility] 7t [place] [address] Care Team Providers Care Imcu Specialist Name Role Phone Delmer Dunlap MD Primary Care Provider [phone] Encounter Details Date Type Department Care Team ([facility] st Contact Info) Description 03/18/2024 Telephone [facility] CHC MED & PEDS 505 [place], [place] [phone] Delmer Dunlap MD 505 [place], [place] [phone] Social History Tobacco Use Types Packs/Day Years [...] would signcare orders . Best contact # [phone]. documented in this encounter Plan of Treatment Upcoming Encounters Date Type Department Care Team (Late st Contact Info) Description 06/12/2024 11:30 AM EDT Office Visit [facility] MED & PEDS 505 [place] [address] Delmre Dunlap MD 505 [place] [address] documented as of this encounter Visit Diagnoses Not on filedocumented in this encounter Care Teams Imcu Specialist Relationship Specialty Start Date End Date Delmer Dunlap MD 505 [place] [address] PCP - General Internal Medicine 04/04/11 [facility] 03/18/24 documented as of this encounter
--- OUTSIDE RECORDS SUMMARY | 2024-04-16 10:50 | XMS_ITS | Encounter Summary ---
Author Organization [employer] Address [address] [place] [address] 7 [place] [address] Care Team Providers Care Offshoring Manager Name Role Phone Delmer Dunlap MD Primary Care Provider [phone]- [phone] Reason for Visit * Reason Onset Date Comments Hospital Follow-up 11/01/2022 Encounter Details Date Type Department Care Team ([facility] st Contact Info) Description 11/01/2022 Telephone [facility] CHC MED & PEDS [address] [place], [place] [phone] Delmer Dunlap MD 505 [place] [address] Hospital Follow-up Social History Tobacco Use Types [...] from [place] with yoselyn ruiz requesting a [facility] follow up. Pt was admitted on 09/18/22 for acute respiratory failure and will be discharged on 11/02/22. Please contact pt for f/u at [phone]. documented in this encounter Plan of Treatment Upcoming Encounters Date Type Department Care Team (Late st Contact Info) Description 06/12/2024 11:30 AM EDT Office Visit [facility] CHC MED & PEDS [address] [place] [address] Delmer Dunlap MD 505 [place] [address] documented as of this encounter Visit Diagnoses Not on filedocumented in this encounter Care Teams Offshoring Manager Relationship Specialty Start Date End Date Delmer Dunlap MD [address] [place] [address] PCP - General Internal Medicine 04/04/11 [facility] 03/18/24 documented as of this encounter
[2024-04-17 14:48] LABS: Alanine Aminotransferase 29 U/L (0-40); Albumin Level 4.2 g/dL (3.5-5.0); Alkaline Phosphatase 99 U/L (39-117); Anion Gap 17 (12-20); Aspartate Amino Transferase 42 U/L (5-37); Bilirubin Direct 0.3 mg/dL (0.0-0.5); Bilirubin Total 0.8 mg/dL (0.0-1.0); Blood Urea Nitrogen 16 mg/dL (9-16); Calcium 9.3 mg/dL (8.4-10.2); Carbon Dioxide 37 mmol/L (22-29); Chloride 95 mmol/L (96-108); Cholesterol 167 mg/dL (<200); Estimated Glomerular Filt Rate 54; Glucose Random 133 mg/dL (60-115); HDL Cholesterol 47 mg/dL (>40); LDL Cholesterol Calculated 87 mg/dL (<100); Potassium 4.6 mmol/L (3.3-5.1); Sodium 144 mmol/L (135-145); Total Protein 7.4 g/dL (6.5-8.0); Triglycerides 165 mg/dL (<150)
[2024-04-17 15:03] LABS: TSH reflex Free T4 1.31 uIU/mL (0.32-4.0)
== END 2024-04-16 09:35 | disposition home or self-care (01) ==
LOC: HO.CHCLDS 09:34
PROVIDERS: Visit Provider Nurse Practitioner Family
DX: I10 Essential (primary) hypertension (principal); I48.0 Paroxysmal atrial fibrillation; I25.10 Atherosclerotic heart disease of native coronary artery without angina pectoris
CPT/HCPCS: 36415; 80048; 80061; 80076; 84443

== ENCOUNTER 2024-06-12 12:00 | Outpatient (REF) | payer MEDICARE, MEDICAID, SELFPAY ==
--- OUTSIDE RECORDS SUMMARY | 2024-06-12 14:41 | XMS_ITS | Encounter Summary ---
Author Organization [employer] [facility] Address [address] [place] [address] [place], [place] [address] Care Team Providers Care Client Care Representative Name Role Phone Delmer Dunlap MD Primary Care Provider [phone] Encounter Details Date Type Department Care Team (Late st Contact Info) Description 11/24/2022 Abstract [facility] Information Management [address] [place], [place] [phone] Delmer Dunlap MD 505 [place] [address] Social History Tobacco Use Types Packs/Day Years [...] on filedocumented in this encounter Care Teams Client Care Representative Relationship Specialty Start Date End Date Delmer Dunlap MD [address] [place] [address] PCP - General Internal Medicine 04/04/11 [facility] 03/18/24 documented as of this encounter
--- OUTSIDE RECORDS SUMMARY | 2024-06-12 14:41 | XMS_ITS | Encounter Summary ---
Author Organization [employer] Address [address] [place] [address] Care Team Providers Care Director Learning Services Name Role Phone Delmer Dunlap MD Primary Care Provider [phone]- [phone] Reason for Visit * Reason Onset Date Comments Lab Orders 05/05/2022 Encounter Details Date Type Department Care Team (Late st Contact Info) Description 05/05/2022 Telephone [facility] MEDICINE 230 [place] [address] Delmer Dunlap MD [address] [place] [address] Lab Orders Social History Tobacco Use Types [...] June) Call to [place] informed. Advised of [facility] lab hours. She verbalizes understanding and agrees. [...] for blood work, Please contact pt at [phone] documented in this encounter Plan of Treatment Not on file documented as of this encounter Visit Diagnoses Not on filedocumented in this encounter Care Teams Director Learning Services Relationship Specialty Start Date End Date Delmer Dunlap MD [address] [place] [address] PCP - General Internal Medicine 04/04/11 [facility] 03/18/24 documented as of this encounter
--- OUTSIDE RECORDS SUMMARY | 2024-06-12 14:41 | XMS_ITS | Encounter Summary ---
Author Organization [employer] Address 75 [facility] 7 [place] [address] Care Team Providers Care Oracle Ascp Consultant Name Role Phone Delmer Dunlap MD Primary Care Provider [phone] Encounter Details Date Type Department Care Team (Late st Contact Info) Description 05/29/2024 Orders Only [facility] CHC MED & PEDS 505 [place], [place] [phone] Delmer Dunlap MD 505 [place] [address] Social History Tobacco Use Types Packs/Day Years [...] documented as of this encounter Care Teams Oracle Ascp Consultant Relationship Specialty Start Date End Date Delmer Dunlap MD [address] [place] [address] PCP - General Internal Medicine 04/04/11 [facility] 03/18/24 documented as of this encounter
--- OUTSIDE RECORDS SUMMARY | 2024-06-12 14:41 | XMS_ITS | Encounter Summary ---
Author Organization [employer] Address 75 [facility] 7t [place] [address] Care Team Providers Care Paper Machine Operator Name Role Phone Delmer Dunlap MD Primary Care Provider [phone] Encounter Details Date Type Department Care Team ([facility] st Contact Info) Description 03/11/2024 Telephone [facility] CHC MED & PEDS 505 [place], [place] [phone] Delmer Dunlap MD 505 [place], [place] [phone] Social History Tobacco Use Types Packs/Day Years [...] to inform pt is currently admitted at [facility]. Advices to contact pcp office once discharged. documented in this encounter Plan of Treatment Not on file documented as of this encounter Visit Diagnoses Not on filedocumented in this encounter Care Teams Paper Machine Operator Relationship Specialty Start Date End Date Delmer Dunlap MD [address] [place] [address] PCP - General Internal Medicine 04/04/11 [facility] 03/18/24 documented as of this encounter
--- OUTSIDE RECORDS SUMMARY | 2024-06-12 14:41 | XMS_ITS | Encounter Summary ---
Author Organization [employer] Address 75 [facility] 7t [place] [address] Care Team Providers Care Wire Coating Operator Metal Name Role Phone Delmer Dunlap MD Primary Care Provider +[phone] Encounter Details Date Type Department Care Team ([facility] st Contact Info) Description 06/12/2024 Telephone [facility] CHC MED & PEDS 505 [place], [place] [phone] Delmer Dunlap MD 505 [place], [place] [phone] Social History Tobacco Use Types Packs/Day Years [...] documented as of this encounter Care Teams Wire Coating Operator Metal Relationship Specialty Start Date End Date Delmer Dunlap MD [address] [place] [address] PCP - General Internal Medicine 04/04/11 [facility] 03/18/24 documented as of this encounter
--- OUTSIDE RECORDS SUMMARY | 2024-06-12 14:41 | XMS_ITS | Encounter Summary ---
Author Organization [employer] Address 75 [facility] 7 [place] [address] Care Team Providers Care Cell Phone Repair Technician Name Role Phone Delmer Dunlap MD Primary Care Provider [phone]- [phone] Reason for Visit * Reason Onset Date Comments FYI 11/30/2022 Encounter Details Date Type Department Care Team ([facility] st Contact Info) Description 11/30/2022 Telephone [facility] CHC MED & PEDS 505 [place] [address] Delmer Dunlap MD 505 [place] [address] FYI Social History Tobacco Use Types Packs/Day [...] - 11/30/2022 3:32 PM EDT Tc from [place] at [facility] calling to inform PCP that pt has gained 2.2 lbs in one day. documented in this encounter Plan of Treatment Not on file documented as of this encounter Visit Diagnoses Not on filedocumented in this encounter Care Teams Cell Phone Repair Technician Relationship Specialty Start Date End Date Delmer Dunlap MD [address] [place] [address] PCP - General Internal Medicine 04/04/11 [facility] 03/18/24 documented as of this encounter
--- OUTSIDE RECORDS SUMMARY | 2024-06-12 14:41 | XMS_ITS | Encounter Summary ---
Author Organization [employer] Address 75 [facility] 7 [place] [address] Care Team Providers Care Climbing Guide Name Role Phone Delmer Dunlap MD Primary Care Provider [phone] Reason for Visit * Reason Comments Follow-up Encounter Details Date Type Department Care Team ([facility] Contact Info) Description 06/12/2024 11:30 AM EDT Office Visit [facility] CH[facility] MED & PEDS [address] [place] [address] Delmer Dunlap MD 505 [place] [address] Chronic heart failure, unspecified heart failure type (CMS/HCC) (Primary Dx); Other iron deficiency anemia; Hypercholesterolemia; Aortic valve stenosis, etiology of cardiac valve disease unspecified; Paroxysmal atrial fibrillation (CMS/HCC) Social History Tobacco Use Types Packs/Day [...] Sign Reading Time Taken Comments Blood Pressure 123/69 06/12/2024 11:23 AM EDT Pulse 84 06/12/2024 11:23 AM EDT Temperature 36.9 ??C (98.4 ??F) 06/12/2024 11:23 AM E DT Respiratory Rate 18 06/12/2024 11:23 AM EDT Oxygen Saturation 96% 06/12/2024 11:23 AM EDT Inhaled Oxygen Concentration - - Weight 174 kg (384 lb) 06/12/2024 11:23 AM EDT Height 172.7 cm (5' 8 ) 06/12/2024 11:23 AM EDT Body Mass Index 58.39 06/12/2024 11:23 AM EDT documented in this encounter Progress Notes * Delmer Dunlap MD - 06/12/2024 11:30 AM EDT Subjective Patient ID: Darwin Iraheta is a 68 y.o. male who presents for Follow-up. HPI 1) history of CHF, hypertension. Evaluated by cardiology in April 04, 2024. Advised to resume lisinopril 5 mg once a day. Patient was continued on torsemide 40 mg 2 times a day. 2) history of sleep apnea patient is not using his CPAP. 3) has a hospital bed. 4) history of intertrigo of the abdominal folds. Nystop prescribed at the last visit. Itchiness is controlled. Otherwise patient takes a shower maybe once a week which does not help controlling his intertrigo. 5) history of renal failure. Patient needs a repeat kidney function before leaving the office today. 6) history of iron deficiency anemia. His dose of iron was decreased to once a day. Started on bisacodyl which was not helpful. Patient's has been giving him prune juice which works better for him. Mr. Darwin Iraheta has regular normal bowel movements daily. Referred to hematology. Patient has not received a call yet from the office. Patient Active Problem List Diagnosis Atherosclerosis of coronary artery Atrioventricular allan re-entry tachycardia (CMS/HCC) Aortic stenosis Brain mass [place] Closed fracture of distal end of radius Congestive heart failure (CMS/HCC) Heart failure (CMS/HCC) Dependent edema Fall in home Hypercholesterolemia Hypertensive heart disease without congestive heart failure Morbid obesity (CMS/HCC) STACEY (obstructive sleep apnea) Paroxysmal atrial fibrillation (CMS/HCC) Radius fracture S/P CABG x 4 Seizure (CMS/HCC) Hypothyroidism Cellulitis of abdominal wall Iron deficiency anemia Current Outpatient Medications on File Prior to Visit Medication Sig Dispense Refill acetaminophen (Tylenol) 325 MG tablet Take 650 mg by mouth every 6 (six) hours if needed. amiodarone (Pacerone) 200 MG tablet TAKE ONE TABLET EVERY MORNING 90 tablet 1 ammonium lactate (Lac-Hydrin) 12 % lotion Use topically BID in dry skin Aspirin Adult Low Strength 81 MG EC tablet TAKE ONE TABLET EVERY MORNING 90 tablet 3 atorvastatin (Lipitor) 80 MG tablet TAKE ONE TABLET EVERY EVENING 90 tablet 1 bacitracin (RA Bacitracin) 500 UNIT/GM ointment Apply topically 2 times daily. 14 g 0 Ferrous Sulfate (iron) 325 (65 Fe) MG tablet Place 1 tablet (325 mg) into mouth between cheek and gum Once per day. 90 tablet 1 levETIRAcetam (Keppra) 500 MG tablet TAKE ONE TABLET IN THE MORNING AND EVENING 180 tablet 1 levothyroxine (Synthroid, Levoxyl) 125 MCG tablet Take 1 tablet (125 mcg) by mouth before breakfast. 30 tablet 3 melatonin 5 MG tablet TAKE 1 TABLET EVERY NIGHT AT BEDTIME 30 tablet 11 miconazole (Zeasorb-AF) 2 % powder Apply topically if needed for itching. 85 g 3 Multiple Vitamin (Multivitamin) tablet TAKE ONE TABLET AT NOON 90 tablet 3 nystatin (Mycostatin) 898221 UNIT/GM powder Apply topically 2 times daily. 60 g 3 nystatin (Nystop) 307092 UNIT/GM powder apply by topical route 2 times every day to the affected area(s) pantoprazole (ProtoNix) 40 MG EC tablet TAKE ONE TABLET EVERY MORNING 90 tablet 5 PARoxetine (Paxil) 20 MG tablet TAKE ONE TABLET EVERY EVENING 30 tablet 2 potassium chloride CR (Klor-Con M20) 20 MEQ ER tablet TAKE ONE TABLET IN THE MORNING AND EVENING 60tablet 3 torsemide (Demadex) 20 MG tablet Take 3 tabs in the morning and 2 tabs in the evening Xarelto 20 MG tablet TAKE ONE TABLET EVERY EVENING 30 tablet 5 Zinc Oxide (Secura Protective) 10 % cream Apply 1 g topically 2 times daily. 113 g 1 No current facility-administered medications on file prior to visit. No Known Allergies Review of Systems Constitutional: Negative for appetite change, chills and diaphoresis. HENT: Negative for congestion and dental problem. Eyes: Negative for photophobia, pain and redness. Respiratory: Positive for shortness of breath. Negative for cough and choking. Cardiovascular: Negative for leg swelling. Gastrointestinal: Negative for abdominal pain, anal bleeding and blood in stool. Musculoskeletal: Negative for back pain and gait problem. Poor mobility. Objective BP 123/69 (BP Location: Right arm, Patient Position: Sitting, BP Cuff Size: Large adult) Pulse 84 Temp 98.4 ??F (36.9 ??C) (Oral) Resp 18 Ht 5' 8 (1.727 m) Wt 384 lb (174 kg) SpO2 96% BMI 58.39 kg/m?? Physical Exam Constitutional: General: He is not in acute distress. Appearance: Normal appearance. He is obese. He is not ill-appearing, toxic- appearing or diaphoretic. Cardiovascular: Rate and Rhythm: Normal rate. Pulmonary: Effort: Pulmonary effort is normal. Abdominal: General: Abdomen is flat. Neurological: Mental Status: He is alert. Assessment/Plan Diagnoses and all orders for this visit: Chronic heart failure, unspecified heart failure type (CMS/HCC) Comments: Follows up with cardiology Continue with torsemide at the same dose. Patient advised to decrease fluid intake. No more than 2 L in a day Daily weight Orders: - Comprehensive Metabolic Panel; Future Other iron deficiency anemia Comments: Repeat CBC today Hematology evaluation Continue with iron supplementation for now Orders: - CBC auto differential; Future Hypercholesterolemia Comments: No change today Lipid panel Medication will be adjusted accordingly Aortic valve stenosis, etiology of cardiac valve disease unspecified Comments: Follow-up with cardiology No new symptoms Paroxysmal atrial fibrillation (CMS/HCC) Comments: Continue with Xarelto No reported mucocutaneous bleeding Continue with amiodarone Patient is to continue with the use of zinc oxide as a protective barrier to avoid bedsores. He is also to try to be as active as tolerated. Patient is reported to be mostly sedentary by his . Patient is oxygen dependent and has poor mobility. He would benefit from getting a smaller oxygen tank to be able to move around and to be more active in general which will improve his quality of life. documented in this encounter Plan of Treatment Scheduled Orders Name Type Priority Associated Diagnoses Orde r Schedule Comprehensive Metabolic Panel Lab Routine Chronic heart failure, unspecified heart failure type (CMS/HCC) Expected: 06/12/2024 (Approximate), Expires: 06/12/2025 CBC auto differential Lab Routine Other iron deficiency anemia Expected: 06/12/2024 (Approximate), Expires: 06/12/2025 documented as of this encounter Visit Diagnoses Diagnosis Chronic heart failure, unspecified heart failure type (CMS/HCC)- Primary Other iron deficiency anemia Hypercholesterolemia Pure hypercholesterolemia Aortic valve stenosis, etiology of cardiac valve disease unspecified Paroxysmal atrial fibrillation (CMS/HCC) Atrial fibrillation documented in this encounter Additional Health Concerns Assessment Noted Time PHQ-9 Depression Total Score: 0 03/31/19 25 10:07 AM EST documented as of this encounter Care Teams Climbing Guide Relationship Specialty Start Date End Date Delmer Dunlap MD [address] [place] [id number] PCP - General Internal Medicine 04/04/11 [facility] 03/18/24 documented as of this encounter
--- OUTSIDE RECORDS SUMMARY | 2024-06-12 14:41 | XMS_ITS | Encounter Summary ---
Author Organization [employer] Address [address] [place] [address] 7 [place] [address] Care Team Providers Care Manager Web Name Role Phone Delmer Dunlap MD Primary Care Provider [phone] Encounter Details Date Type Department Care Team (Late st Contact Info) Description 06/05/2022 Orders Only [facility] CHC MED & PEDS [address] [place], [place] [phone] Delmer Dunlap MD 505 [place] [address] Social History Tobacco Use Types Packs/Day Years [...] on filedocumented in this encounter Care Teams Manager Web Relationship Specialty Start Date End Date Delmer Dunlap MD [address] [place] [address] PCP - General Internal Medicine 04/04/11 [facility] 03/18/24 documented as of this encounter
--- OUTSIDE RECORDS SUMMARY | 2024-06-12 14:41 | XMS_ITS | Encounter Summary ---
Author Organization [employer] Address 75 [facility] 7t [place] [address] Care Team Providers Care Market Manager Name Role Phone Delmer Dunlap MD Primary Care Provider [phone] Encounter Details Date Type Department Care Team (Late st Contact Info) Description 01/23/2023 Telephone [facility] MEDICINE [address] [place] [address] Delmer Dunlap MD [address] [place], [place] [phone] Social History Tobacco Use Types Packs/Day Years [...] on filedocumented in this encounter Care Teams Market Manager Relationship Specialty Start Date End Date Delmer Dunlap MD [address] [place] [id number] PCP - General Internal Medicine 04/04/11 [facility] 03/18/24 documented as of this encounter
--- OUTSIDE RECORDS SUMMARY | 2024-06-12 14:41 | XMS_ITS | Encounter Summary ---
Author Organization [employer] Address 75 [facility] 7 [place] [address] Care Team Providers Care Underwriting Support Manager Name Role Phone Delmer Dunlap MD Primary Care Provider [phone] Reason for Visit * Reason Onset Date Comments Hospital Follow-up 03/18/2024 Encounter Details Date Type Department Care Team (Late st Contact Info) Description 03/18/2024 Telephone [facility] MEDICINE [address] [place] [address] Delmer Dunlap MD [address] [place] [phone] Hospital Follow-up Social History Tobacco Use Types [...] from pt requesting a HDF appt. Hospital: [facility] Date of admission: 03/02/24 Discharge date: 03/17/24 Diagnosed: Chest pain, atrial fibrillation, hypercarbia. *Send message to [place] Clinical Care Coordinators documented in this encounter Plan of Treatment Not on file documented as of this encounter Visit Diagnoses Not on filedocumented in this encounter Care Teams Underwriting Support Manager Relationship Specialty Start Date End Date Delmer Dunlap MD [address] [place] [address] PCP - General Internal Medicine 04/04/11 [facility] 03/18/24 documented as of this encounter
--- OUTSIDE RECORDS SUMMARY | 2024-06-12 14:41 | XMS_ITS | Encounter Summary ---
Author Organization [employer] Address 75 [facility] 7 [place] [address] Care Team Providers Care Secondary Spanish Teacher Name Role Phone Delmer Dunlap MD Primary Care Provider [phone] Reason for Visit * Reason Comments Med Refill Encounter Details Date Type Department Care Team ([facility] Contact Info) Description 05/28/2023 Refill [facility] CHC MED & PEDS [address] [place], [place] [phone] Delmer Dunlap MD [address] [place] [address] Social History Tobacco Use Types Packs/Day Years [...] on filedocumented in this encounter Care Teams Secondary Spanish Teacher Relationship Specialty Start Date End Date Delmer Dunlap MD [address] [place] [address] PCP - General Internal Medicine 04/04/11 [facility] 03/18/24 documented as of this encounter
--- OUTSIDE RECORDS SUMMARY | 2024-06-12 14:41 | XMS_ITS | Encounter Summary ---
Author Organization [employer] Address [address] [place] [address] 7 [place] [address] Care Team Providers Care Government Property Inspector Name Role Phone Delmer Dunlap MD Primary Care Provider [phone] Reason for Visit * Reason Onset Date Comments Hospital Follow-up 11/01/2022 Encounter Details Date Type Department Care Team ([facility] st Contact Info) Description 11/01/2022 Telephone [facility] CHC MED & PEDS [address] [place], [place] [phone] Delmer Dunlap MD 505 [place] [address] Hospital Follow-up Social History Tobacco Use Types [...] from Liza with yoselyn ruiz requesting a [facility] follow up. Pt was admitted on 09/18/22 for acute respiratory failure and will be discharged on 11/02/22. Please contact pt for f/u at [phone]. documented in this encounter Plan of Treatment Not on file documented as of this encounter Visit Diagnoses Not on filedocumented in this encounter Care Teams Government Property Inspector Relationship Specialty Start Date End Date Delmer Dunlap MD [address] [place] [id number] PCP - General Internal Medicine 04/04/11 [facility] 03/18/24 documented as of this encounter
--- OUTSIDE RECORDS SUMMARY | 2024-06-12 14:41 | XMS_ITS | Encounter Summary ---
Author Organization [employer] Address 75 [facility] 7t [place] [address] Care Team Providers Care Manufacturing Process Engineer Name Role Phone Delmer Dunlap MD Primary Care Provider [phone] Reason for Visit * Reason Comments Med Refill Encounter Details Date Type Department Care Team ([facility] st Contact Info) Description 06/25/2023 Refill [facility] MEDICINE [address] [place] [address] Verónica Mckenna MD [address] [place] [address] Social History Tobacco Use Types Packs/Day Years [...] on filedocumented in this encounter Care Teams Manufacturing Process Engineer Relationship Specialty Start Date End Date Delmer Dunlap MD [address] [place] [id number] PCP - General Internal Medicine 04/04/11 [facility] 03/18/24 documented as of this encounter
--- OUTSIDE RECORDS SUMMARY | 2024-06-12 14:41 | XMS_ITS | Encounter Summary ---
Author Organization [employer] [facility] Address [address] [place] [address], [place] [address] Care Team Providers Care Medical Library Assistant Name Role Phone Delmer Dunlap MD Primary Care Provider [phone] Reason for Visit * Reason Comments Med Refill Encounter Details Date Type Department Care Team ([facility] st Contact Info) Description 03/20/2022 Refill [facility] CHC MED & PEDS [address] [place] [address] Delmer Dunlap MD [address] [place] [address] Atherosclerosis of coronary artery of buck[place] heart without angina pectoris, unspecified vessel or [...] Diagnoses Diagnosis Atherosclerosis of coronary artery of [place] heart without angina pectoris, unspecified vessel or lesion type- Primary Recurrent major depressive disorder, in partial remission (CMS/HCC) Other iron deficiency anemia documented in this encounter Care Teams Medical Library Assistant Relationship Specialty Start Date End Date Delmer Dunlap MD [address] [place] [address] PCP - General Internal Medicine 04/04/11 [facility] 03/18/24 documented as of this encounter
--- OUTSIDE RECORDS SUMMARY | 2024-06-12 14:41 | XMS_ITS | Encounter Summary ---
Author Organization [employer] Address 75 [facility] 7 [place] [address] Care Team Providers Care Regulatory Affairs Internship Name Role Phone Delmer Dunlap MD Primary Care Provider [phone] Reason for Visit * Reason Comments Med Refill Encounter Details Date Type Department Care Team ([facility] Contact Info) Description 02/22/2023 Refill [facility] CHC MED & PEDS [address] [place], [place] [phone] Delmer Dunlpa MD [address] [place] [address] Social History Tobacco Use Types Packs/Day Years [...] on filedocumented in this encounter Care Teams Regulatory Affairs Internship Relationship Specialty Start Date End Date Delmer Dunlap MD [address] [place] [address] PCP - General Internal Medicine 04/04/11 [facility] 03/18/24 documented as of this encounter
--- OUTSIDE RECORDS SUMMARY | 2024-06-12 14:41 | XMS_ITS | Encounter Summary ---
Author Organization [employer] [facility] Address [address] [place] [address] 7 [place] [address] Care Team Providers Care Slime Plant Operator Helper Name Role Phone Delmer Dunlap MD Primary Care Provider [phone] Encounter Details Date Type Department Care Team ([facility] st Contact Info) Description 03/14/2022 Orders Only [facility] CHC MED & PEDS [address] [place] [address] Magdalena Avila LPN Social History Tobacco Use [...] on filedocumented in this encounter Care Teams Slime Plant Operator Helper Relationship Specialty Start Date End Date Delmer Dunlap MD [address] [place] [address] PCP - General Internal Medicine 04/04/11 [facility] 03/18/24 documented as of this encounter
--- OUTSIDE RECORDS SUMMARY | 2024-06-12 14:41 | XMS_ITS | Encounter Summary ---
Author Organization [employer] Address 75 [facility] 7 [place] [address] Care Team Providers Care Office Technologist Name Role Phone Delmer Dunlap MD Primary Care Provider [phone] Reason for Visit * Reason Comments Med Refill Encounter Details Date Type Department Care Team ([facility] Contact Info) Description 06/20/2023 Refill [facility] CHC MED & PEDS [address] [place], [place] [phone] Delmer Dunlap MD 505 [place] [address] Social History Tobacco Use Types Packs/Day Years [...] on filedocumented in this encounter Care Teams Office Technologist Relationship Specialty Start Date End Date Delmer Dunlap MD [address] [place] [address] PCP - General Internal Medicine 04/04/11 [facility] 03/18/24 documented as of this encounter
--- OUTSIDE RECORDS SUMMARY | 2024-06-12 14:41 | XMS_ITS | Encounter Summary ---
Author Organization [employer] [facility] Address [address] [place] [address] 7t [place] [address] Care Team Providers Care Community Placement Worker Name Role Phone Delmer Dunlap MD Primary Care Provider [phone] Encounter Details Date Type Department Care Team (Late st Contact Info) Description 03/23/2022 Orders Only [facility] MEDICINE [address] [place] [address] Delmer Dunlap MD [address] [place], [place] [phone] Social History Tobacco Use Types Packs/Day Years [...] on filedocumented in this encounter Care Teams Community Placement Worker Relationship Specialty Start Date End Date Delmer Dunlap MD [address] [place] [address] PCP - General Internal Medicine 04/04/11 [facility] 03/18/24 documented as of this encounter
--- OUTSIDE RECORDS SUMMARY | 2024-06-12 14:41 | XMS_ITS | Clinical Summary ---
Author Organization [employer] Address [address] [place] [address] 7t [place] [address] Care Team Providers Care Business Risk Consultant Name Role Phone Delmer Dunlap MD Primary Care Provider [phone] Allergies No known active allergies Medications ammonium lactate (Lac-Hydrin) 12 % lotion Use topically BID in dry skin 2 Active nystatin (Nystop) 593106 UNIT/GM powder apply by topical route 2 times every day to the affected area(s) 2 Active torsemide (Demadex) 20 MG tablet Take 3 tabs in the morning and 2 tabs in the evening Active acetaminophen (Tylenol) 325 MG tablet Take 650 mg by mouth every 6 (six) hours if needed. 0 Active Zinc Oxide (Secura Protective) 10 % cream Apply 1 g topically 2 times daily. 113 g 1 3 Active miconazole (Zeasorb-AF) 2 % powderIndication s:Intertrigo Apply topically if needed for itching. 85 g 3 3 Active bacitracin (RA Bacitracin) 500 UNIT/GM ointmentIndicati ons:Intertrigo Apply topically 2 times daily. 14 g 3 Active pantoprazole (ProtoNix) 40 MG EC tabletIndication s:Gastroesophage al reflux disease without esophagitis TAKE ONE TABLET EVERY MORNING 90 tablet 5 4 Active Aspirin Adult Low Strength 81 MG EC tablet TAKE ONE TABLET EVERY MORNING 90 tablet 3 4 Active Multiple Vitamin (Multivitamin) tablet TAKE ONE TABLET AT NOON 90 tablet 3 4 Active melatonin 5 MG tablet TAKE 1 TABLET EVERY NIGHT AT BEDTIME 30 tablet 11 4 Active Xarelto 20 MG tablet TAKE ONE TABLET EVERY EVENING 30 tablet 5 4 Active atorvastatin (Lipitor) 80 MG tabletIndication s:Atherosclerosi s of coronary artery of [place] heart without angina pectoris, unspecified vessel or lesion type TAKE ONE TABLET EVERY EVENING 90 tablet 1 5 Active levothyroxine (Synthroid, Levoxyl) 125 MCG tablet Take 1 tablet (125 mcg) by mouth before breakfast. 30 tablet 3 5 Active Ferrous Sulfate (iron) 325 (65 Fe) MG tablet Place 1 tablet (325 mg) into mouth between cheek and gum Once per day. 90 tablet 1 5 Active nystatin (Mycostatin) 293314 UNIT/GM powderIndication s:Intertrigo Apply topically 2 times daily. 60 g 3 5 03/31/19 26 Active amiodarone (Pacerone) 200 MG tablet TAKE ONE TABLET EVERY MORNING 90 tablet 1 5 Active levETIRAcetam (Keppra) 500 MG tablet TAKE ONE TABLET IN THE MORNING AND EVENING 180 tablet 1 5 Active potassium chloride CR (Klor-Con M20) 20 MEQ ER tablet TAKE ONE TABLET IN THE MORNING AND EVENING 60 tablet 3 5 Active PARoxetine (Paxil) 20 MG tabletIndication s:Recurrent major depressive disorder, in partial remission (CMS/HCC) TAKE ONE TABLET EVERY EVENING 30 tablet 2 5 Active Active Problems Patient Care Coordination No te [...] Encounters Date Type Department Care Team Description 06/12/2024 11:30 AM EDT Office Visit [facility] [address] [place] [address] Delmer Dunlap MD Chronic heart failure, unspecified heart failure type (CMS/HCC) (Primary Dx); Other iron deficiency anemia; Hypercholesterolemi a; Aortic valve stenosis, etiology of cardiac valve disease unspecified; Paroxysmal atrial fibrillation (CMS/HCC) 06/12/2024 Telephone [facility] [address] [place] [address] Delmer Dunlap MD 06/12/2024 Travel 06/05/2024 Patient Outreach [facility] [address] [place] [address] Delmer Dunlap MD Pre-visit Planning (Pre visit planning LVM ) 05/29/2024 Orders Only [facility] [address] [place] [address] Delmer Dunlap MD 05/28/2024 Telephone [facility] [address] [place] [phone] Delmer Dunlap MD Call Back Request (/) 05/16/2024 Population Health Risk Score [facility] ([facility]) Department [address] [place] [place] [phone] Provider, [facility] 05/08/2024 Refill [facility] [address] [place] [address] Luis Manuel Bowen MD Recurrent major depressive disorder, in partial remission (CMS/HCC) 04/14/2024 Refill [facility] [address] [place] [address] Delmer Dunlap MD 04/12/2024 Refill [facility] [address] [place] [address] Delmer Dunlap MD 04/01/2024 Telephone [facility] [address] [place] [address] Madyson Rodriguez RN Results 03/31/2024 10:15 AM EST Office Visit [facility] [address] [place] [address] Delmer Dunlap MD Hypertensive heart disease without congestive heart failure (Primary Dx); Chronic heart failure, unspecified heart failure type (CMS/HCC); Slow transit constipation; Intertrigo; Other iron deficiency anemia; Acute renal failure, unspecified acute renal failure type (CMS/HCC) 03/31/2024 Travel 03/18/2024 Refill [facility] [address] [place] [address] Delmer Dunlap MD 03/18/2024 Patient Outreach [facility] [address] [place] [address] Delmer Dunlap MD Transition Of Care (Tcm) (HDF- scheduled and SDOH screening negative and Tobacco screening negative) 03/18/2024 Telephone [facility] [address] [place] [address] Delmer Dunlap MD 03/18/2024 Telephone [facility] [address] [place] [address] Delmer Dunlap MD Hospital Follow-up from Last 3 Months Immunizations Name Administration [...] Mass Index 58.39 06/12/2024 11:23 AM EDT Plan of Treatment Health Maintenance Due Date [...] 2023 11/22/2020, 11/01/2020 Influenza Vaccine (#1) 2023 SDOH Screening 03/18/2025 03/18/2024 Alcohol/Substance Use Screening 03/31/2025 03/31/2024 Depression Screening 03/31/2025 03/31/2024, 03/31/2024 Tobacco Screening 06/12/2025 06/12/2024 Lipid Panel 01/14/2026 01/14/2021 HIB Vaccines Aged [...] Blood Count 4.0(L) 4.8 - 10.8 X10*3/uL [facility] Red Blood Count 4.08(L) 4.60 - 5.80 X10*6/uL [facility] Hemoglobin 11.3(L) 14.0 - 18.0 g/dl [facility] Hematocrit 37.2(L) 42.0 - 52.0 % [facility] Mean Corpuscular Volume 91.2 80.0 - 98.0 fL [facility] Mean Corpuscular Hemoglobin 27.7 27.0 - 33.0 pg [facility] Mean Corpuscular HGB Conc 30.4(L) 31.0 - 36.0 g/dl [facility] Red Cell Distribution Width 14.6 11.0 - 16.0 % [facility] Platelet Count 175 160 - 400 X10*3/uL [facility] Mean Platelet Volume 12.2 9.4 - 12.4 fL [facility] Neutrophils Percent Auto 68.1 45 - 73 % [facility] Imm Gran Pct Auto 0.5(H) 0.0 - 0.4 % [facility] Lymphocytes Percent Auto 18.6(L) 20 - 40 % [facility] Monocytes Percent Auto 10.8 2 - 11 % [facility] Eosinophils Percent Auto 1.5 0 - 4 % [facility] Basophils Percent Auto 0.5 0 - 2 % [facility] NRBC Pct Auto 0.0 0.0 - 0.2 /100WBC [facility] Neutrophils Absolute Auto 2.7 2.0 - 8.3 x10*3/uL [facility] Imm Gran Abs Auto 0.02 0.00 - 0.03 X10*3/uL [facility] Lymphocytes Absolute Auto 0.7(L) 1.2 - 4.9 X10*3/uL [facility] Monocytes Absolute Auto 0.4 0.1 - 1.2 X10*3/uL [facility] Eosinophils Absolute Auto 0.1 0.0 - 0.4 X10*3/uL [facility] Basophils Absolute Auto 0.0 0.0 - 0.2 X10*3/uL [facility] NRBC Abs Auto 0.000 0.0 - 0.012 X10*3/uL [facility] Blood Venous blood specimen / Unknown 03/31/2024 11:17 AM EST 03/31/2024 2:21 PM EST us Delmer Dunlap MD LAB BLOOD ORDERABLES Final Result [facility] [address] [place] [phone] * (ABNORMAL) Basic Metabolic Panel (03/31/2024 11:15 AM EST) Sodium 145 135 - 145 mmol/L [facility] Potassium 4.0 3.3 - 5.1 mmol/L [facility] Chloride 98 96 - 108 mmol/L [facility] Carbon Dioxide 38(H) 22 - 29 mmol/L [facility] Anion Gap 13 12 - 20 [facility] Urea Nitrogen (BUN) 18(H) 9 - 16 mg/dL [facility] Creatinine, Serum 1.21 0.5 - 1.4 mg/dL [facility] Estimated Glomerular Filt Rate 59 [facility] Comment:Chronic Kidney Disea se: Estimated GFR < 60 mL/min/1.87x5Aijogv Kidney Disease: Estimated GFR < 15 mL/min/1.73m2 Glucose 129(H) 60 - 115 mg/dL [facility] Calcium 9.4 8.4 - 10.2 mg/dL [facility] Blood Venous blood specimen / Unknown 03/31/2024 11:15 AM EST 03/31/2024 2:21 PM EST us Delmer Dunlap MD LAB BLOOD ORDERABLES Final Result [facility] [address] [place] [address] [phone] * (ABNORMAL) LIPID PANEL, STANDARD (01/14/2021 [...] ?? Larry ALVAREZ et al. SHASHANK. 2013;310(19): 7804-9795 ?? (http://education.Power[employer] Mobile/faq/WXI661) Non-HDL Cholesterol 120 <130 mg/dL (calc) [facility] Comment: For patients with diabetes plus 1 major ASCVD risk ?? factor, treating to a non-HDL-C goal of <100 mg/dL ?? (LDL-C of <70 mg/dL) is considered a therapeutic ?? option. Triglycerides 162(H) <150 mg/dL [facility] 01/14/2021 10:2 3 AM EST us Verónica Mckenna MD LAB BLOOD ORDERABLES Final Re sult [facility] [address] [place] [address], from Last 3 Months or Most Recently Relevant to Health Maintenance Insurance MEDICARE Member Subscriber Plan / Payer (Ef fective 2022-Present) Name:Darwin Iraheta Member ID:[id number] Relation to Subscriber:Self Name:Darwin Iraheta Subscriber ID:[id number] Payer ID:STATE Group ID:Not on file Type:Medicare Address: [facility] [address] [id number] [facility] Care Teams Business Risk Consultant Relationship Specialty Start Date End Date Delmer Dunlap MD [address] [place] [phone] PCP - General Internal Medicine 04/04/11 [facility] 03/18/24
--- OUTSIDE RECORDS SUMMARY | 2024-06-12 14:41 | XMS_ITS | Encounter Summary ---
Author Organization [email or web address] Address [address] [facility] 7[address] [place] [address] Care Team Providers Care Recreation Officer Name Role Phone Delmer Dunlap MD Primary Care Provider [phone] Encounter Details Date Type Department Care Team (Latest Contact Info) Description 06/12/2024 Travel Social History Tobacco Use Types Packs/Day [...] documented as of this encounter Care Teams Recreation Officer Relationship Specialty Start Date End Date Delmer Dunlap MD [address] [place] [phone] PCP - General Internal Medicine 04/04/11 [facility] 03/18/24 documented as of this encounter
--- OUTSIDE RECORDS SUMMARY | 2024-06-12 14:41 | XMS_ITS | Encounter Summary ---
Author Organization [employer] Address [address] [place] [address] Care Team Providers Care Scallop Dredger Name Role Phone Delmer Dunlap MD Primary Care Provider [phone] Encounter Details Date Type Department Care Team (Late st Contact Info) Description 11/16/2022 Orders Only [facility] & PEDS [address] [place], [place] [phone] Delmer Dunlap MD [address] [place] [address] Congestive heart failure, unspecified HF chronicity, unspecified [...] Primary documented in this encounter Care Teams Scallop Dredger Relationship Specialty Start Date End Date Delmer Dunlap MD [address] [place] [address] PCP - General Internal Medicine 04/04/11 [facility] 03/18/24 documented as of this encounter
--- OUTSIDE RECORDS SUMMARY | 2024-06-12 14:41 | XMS_ITS | Encounter Summary ---
Author Organization [employer] Address [address] [place] [address] Care Team Providers Care Claim Auditor Name Role Phone Delmer Dunlap MD Primary Care Provider [phone] Reason for Visit * Reason Onset Date Comments FYI 11/03/2022 Encounter Details Date Type Department Care Team ([facility] st Contact Info) Description 11/03/2022 Telephone [facility] MED & PEDS [address] [place] [address] Delmer Dunlap MD [address] [place] [address] FYI Social History Tobacco Use Types Packs/Day [...] PM EDT Tc from Maria [facility]z at [facility] calling to inform PCP patient is starting half-way, PT and OT 11/03/22. documented in this encounter Plan of Treatment Not on file documented as of this encounter Visit Diagnoses Not on filedocumented in this encounter Care Teams Claim Auditor Relationship Specialty Start Date End Date Delmer Dunlap MD [address] [place] [phone] PCP - General Internal Medicine 04/04/11 [facility] 03/18/24 documented as of this encounter
[2024-06-12 14:42] LABS: MANUAL DIFF FLAG NO
[2024-06-12 14:51] LABS: Basophils Percent Auto 0.3 % (0-2); Eosinophils Absolute Auto 0.1 X10*3/uL (0.0-0.4); Hematocrit 29.6 % (42.0-52.0); Hemoglobin 9.2 g/dl (14.0-18.0); Imm Gran Abs Auto 0.02 X10*3/uL (0.00-0.03); Imm Gran Pct Auto 0.6 % (0.0-0.4); Lymphocytes Absolute Auto 0.6 X10*3/uL (1.2-4.9); Lymphocytes Percent Auto 16.3 % (20-40); Mean Corpuscular HGB Conc 31.1 g/dl (31.0-36.0); Mean Corpuscular Hemoglobin 28.2 pg (27.0-33.0); Mean Corpuscular Volume 90.8 fL (80.0-98.0); Mean Platelet Volume 11.4 fL (9.4-12.4); Monocytes Absolute Auto 0.4 X10*3/uL (0.1-1.2); Monocytes Percent Auto 11.8 % (2-11); Neutrophils Absolute Auto 2.5 x10*3/uL (2.0-8.3); Platelet Count 155 X10*3/uL (160-400); Red Blood Count 3.26 X10*6/uL (4.60-5.80); Red Cell Distribution Width 14.8 % (11.0-16.0); White Blood Count 3.6 X10*3/uL (4.8-10.8)
[2024-06-12 15:10] LABS: Alanine Aminotransferase 9 U/L (0-40); Albumin Level 3.6 g/dL (3.5-5.0); Aspartate Amino Transferase 28 U/L (5-37); Bilirubin Total 0.7 mg/dL (0.0-1.0); Blood Urea Nitrogen 16 mg/dL (9-16); Calcium 8.9 mg/dL (8.4-10.2); Cholesterol 124 mg/dL (<200); Estimated Glomerular Filt Rate > 60; Glucose Random 93 mg/dL (60-115); HDL Cholesterol 48 mg/dL (>40); LDL Cholesterol Calculated 59 mg/dL (<100); Total Protein 6.5 g/dL (6.5-8.0); Triglycerides 89 mg/dL (<150)
[2024-06-12 15:46] LABS: Alkaline Phosphatase 87 U/L (39-117); Anion Gap 13 (12-20); Carbon Dioxide 41 mmol/L (22-29); Chloride 96 mmol/L (96-108); Potassium 4.1 mmol/L (3.3-5.1); Sodium 146 mmol/L (135-145)
== END 2024-06-12 12:01 | disposition home or self-care (01) ==
LOC: HO.CHCLDS 12:00
PROVIDERS: PCP Internal Medicine; Referring Provider Nurse Practitioner Family; Visit Provider Internal Medicine
DX: D50.8 Other iron deficiency anemias (principal); E78.5 Hyperlipidemia, unspecified; I50.9 Heart failure, unspecified
CPT/HCPCS: 36415; 80053; 80061; 85025

== ENCOUNTER 2024-06-19 12:09 | Outpatient (REF) | payer MEDICARE, MEDICAID, SELFPAY ==
[2024-06-19 14:47] LABS: Anion Gap 12 (12-20); Blood Urea Nitrogen 14 mg/dL (9-16); Calcium 8.7 mg/dL (8.4-10.2); Carbon Dioxide 39 mmol/L (22-29); Chloride 97 mmol/L (96-108); Estimated Glomerular Filt Rate > 60; Glucose Random 174 mg/dL (60-115); Potassium 4.3 mmol/L (3.3-5.1); Sodium 144 mmol/L (135-145)
== END 2024-06-19 12:10 | disposition home or self-care (01) ==
LOC: HO.CHCLDS 12:09
PROVIDERS: Visit Provider Internal Medicine
DX: E87.0 Hyperosmolality and hypernatremia (principal)
CPT/HCPCS: 36415; 80048

== ENCOUNTER 2024-06-26 14:42 | Outpatient (AMB) | payer MEDICARE, MEDICAID, SELFPAY ==
[2024-06-26 15:03] VITALS: BP 120/74; PULSE 75; BMI 54.2
--- NOTE | 2024-06-26 15:03 | MHC.OFFVIS ---
Vital Signs 06/26/24 15:03 Height 5 ft 10 in Weight 378 lb BMI 54.2 BP 120/74 Blood Pressure Location Lt brachial Position Sitting Pulse 75 Intake Visit Reasons: 3m follow up Intake Note: 3 month follow-up wiht ekg feeling good Submarine Cable Equipment Technician Required: No Allergies No Known Allergies [No Known Allergies*] Allergy (Verified 04/04/24 13:04) Medication List - Last Reconciled 06/26/24 by Jj Moreno MD amiodarone 200 mg PO DAILY aspirin 81 mg PO QAM atorvastatin 80 mg PO DAILY ezetimibe (Zetia) 10 mg PO DAILY ferrous sulfate 325 mg PO QAM levothyroxine 125 mcg PO DAILY lisinopril 5 mg PO DAILY melatonin 5 mg PO BEDTIME multivitamin with folic acid 400 mcg (Daily-Abigail (with folic acid)) 1 tab PO DAILY pantoprazole 40 mg PO DAILY paroxetine HCl 20 mg PO DAILY potassium chloride ER 20 mEq PO BID rivaroxaban (Xarelto) 20 mg PO DAILY torsemide 40 mg (2 x 20 mg) PO BID HPI Comments Details: Darwin comes for his 3 month follow-up. He has had no hospitalization the last 3 months for heart failure. Remains very limited. Does not uses BiPAP. Denies any palpitations. No worsening orthopnea, PND although he sleeps in his recliner. He does have bilateral lower extremity swelling which has been present for a long time. This is partly related to heart failure and partly related to lymphedema. Currently takes 80 mg of torsemide. Most recent renal function was within reasonable limits. He denies any lightheadedness, syncope. Although has significant daytime somnolence as as per the . [facility] Medical History (Updated 06/26/24 @ 16:02 by Jj Moreno MD) Paroxysmal atrial fibrillation Parasomnia Hyperlipidemia HTN (hypertension) STACEY (obstructive sleep apnea) Right heart failure (secondary to left heart failure) Morbid obesity (HFpEF) heart failure with preserved ejection fraction CAD (coronary artery disease) Surgical History S/P AVR Hx of CABG (~2017) Hx of cardiac cath (~2003) History of surgery on arm (~2016) Family History Father CVD (cardiovascular disease) Mother Cancer Social History Household Members: Spouse Alcohol intake: current Alcohol intake frequency: does not drink Patient Tobacco Use Status: Former Tobacco user Current occupational status: retired and disabled Review of Systems Const Denies chills, Denies fatigue, Denies fever(s), Denies frequent falls, Denies weakness, Denies weight gain and Denies weight loss ENT Denies dizziness Card Denies chest pain, Denies leg edema, Denies lightheadedness, Denies palpitations, Denies dyspnea, Denies dyspnea on exertion, Denies orthopnea and Denies other (loss of consciousness) Resp Denies cough, Denies dyspnea and Denies dyspnea on exertion GI Denies hematochezia and Denies change in stool character Musc Denies abnormal gait, Denies muscle weakness, Denies numbness, Denies radiating pain into limb and Denies tingling Neuro Denies abnormal gait, Denies dizziness, Denies frequent falls, Denies numbness, Denies tingling and Denies weakness Endo Denies fatigue and Denies palpitations Physical Exam Vital Signs: Last Vital Signs Pulse 75 06/26/24 15:03 BP 120/74 06/26/24 15:03 BMI result Body Mass Index 54.2 Const Other: morbildly obese, sitting in wheelchair General: cooperative, no acute distress, alert and awake Nutritional Appearance: obese morbidly obese and other (Frail) Orientation/consciousness: patient oriented x3 Limitations: wheelchair Neck Neck: Yes trachea midline, Yes supple and Yes no JVD Resp Other: O2 3liters with nasal cannula Effort & Inspection: normal respiratory effort (diminished lung sounds) Auscultation: clear to auscultation bilaterally, no rales, no rhonchi, no wheezes and diminished lung sounds Cardio Jugular venous distension: no JVD Rhythm: abnormal rhythm irregularly irregular Heart sounds: S1 normal heart sound present, S2 normal heart sound present, no murmurs and no rubs Neuro General: patient oriented x3 Extrem Other: nonpitting edema of lower extremities General: No clubbing, No cyanosis and Yes edema (Significant lymphedema) Psych Mental Status: mental status grossly normal Office Procedures EKG Details: EKG shows atrial fibrillation with right bundle-branch block 28504-[id number], Complete Assessment & Plan Assessment & Plan (1) Persistent atrial fibrillation: Code(s): I48.19 - Other persistent atrial fibrillation Category: Medical Plan: Recurrent persistent atrial fibrillation despite amiodarone therapy. This is not unusual or unexpected given his multiple comorbidities and untreated sleep apnea. He was significant underlying cardiac pathology which makes him prone to get recurrent atrial fibrillation. 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 Will switch him to rate control therapy with metoprolol 50 mg daily. Follow-up Holter monitor in 2-4 weeks' time. Continue full oral anticoagulation, currently on Xarelto 20 mg daily quarterly renal function test should be pursued. Overall high risk of recurrent heart failure with persistent atrial fibrillation was discussed. (2) Right heart failure (secondary to left heart failure): Code(s): I50.814 - Right heart failure due to left heart failure Category: Medical Plan: Significant right heart failure related to diastolic dysfunction now recurrent atrial fibrillation. Higher risk for rehospitalization given his multiple comorbidities and poor functional status. Also untreated sleep apnea would make him more prone to develop heart failure syndrome. Currently clinically difficult to assess his volume status but appears to not have any significantly worsening symptoms. Continue current torsemide therapy. Will add Jardiance 10 mg to his regimen for heart failure management. Continue lisinopril therapy. Rate control as above. Increase in diuretic regimen with weight based therapy was discussed with him. (3) CAD (coronary artery disease): Code(s): I25.10 - Atherosclerotic heart disease of [place] coronary artery without angina pectoris Category: Medical Plan: CAD status post coronary artery bypass grafting with no recurrent symptoms at this point time. Continue aggressive blood pressure control. Continue high-intensity statin along with ezetimibe therapy. Currently on full oral anticoagulation with Eliquis and also on aspirin therapy. Continue the same. Target goal LDL less than 70 mg/dL. (4) S/P AVR: Comment: surgical AVR in 2020 with redo open heart surgery at [facility] for progressive severe congestive heart failure syndrome Code(s): Z95.2 - Presence of prosthetic heart valve Category: Surgical Plan: Status post aortic valve replacement redo surgery. Valve is clinically working well. Continue full oral anticoagulation above. SBE prophylaxis as per ACC/aha guidelines. Will follow up in the clinic in 3 months time. Greater than 30 minutes was spent in managing his complex care. Medications: New metoprolol succinate ER (Toprol XL) 50 mg PO DAILY 30 tabs 5RF empagliflozin (Jardiance) 10 mg PO DAILY 30 tabs 5RF Coding Level of Care Code Est Pt Level 5 (63655) Complex EM visit Add On G2211 Diagnoses Persistent atrial fibrillation I48.19 Right heart failure (secondary to left heart failure) I50.814 CAD (coronary artery disease) I25.10 S/P AVR Z95.2 CPT Codes EKG - CPT: 97025-[id number], Complete ([id number])
--- OUTSIDE RECORDS SUMMARY | 2024-06-26 17:24 | XMS_ITS | Encounter Summary ---
Author Organization [employer] Address [address] [facility] 7 [place] [address] Care Team Providers Care Ui Developer With Angular Js Name Role Phone Delmer Dunlap MD Primary Care Provider [phone] Reason for Visit * Reason Onset Date Comments Hospital Follow-up 11/01/2022 Encounter Details Date Type Department Care Team ([facility] st Contact Info) Description 11/01/2022 Telephone [facility] MED & PEDS [address] [place], [place] [phone] Delmer Dunlap MD [address] [place] [address] Hospital Follow-up Social History Tobacco Use Types [...] Eunice Mars - 11/01/2022 10:49 AM EDT Tc from Liza with yoselyn ruiz requesting a [facility] follow up. Pt was admitted on 09/18/22 for acute respiratory failure and will be discharged on 11/02/22. Please contact pt for f/u at [phone]. documented in this encounter Plan of Treatment Upcoming Encounters Date Type Department Care Team (Late st Contact Info) Description 09/25/2024 11:30 AM EDT Office Visit [facility] MED & PEDS [address] [place] [address] Delmer Dunlap MD [address] [place] [address] documented as of this encounter Visit Diagnoses Not on filedocumented in this encounter Care Teams Ui Developer With Angular Js Relationship Specialty Start Date End Date Delmer Dunlap MD [address] [place] [address] PCP - General Internal Medicine 04/04/11 [facility] 03/18/24 documented as of this encounter
--- OUTSIDE RECORDS SUMMARY | 2024-06-26 17:24 | XMS_ITS | Encounter Summary ---
Author Organization [employer] Address [address] [facility] 7 [place] [address] Care Team Providers Care Sheet Fed Printer Name Role Phone Delmer Dunlap MD Primary Care Provider [phone]- [phone] Reason for Visit * Reason Onset Date Comments Results 06/25/2024 Encounter Details Date Type Department Care Team ([facility] Contact Info) Description 06/25/2024 Telephone [facility] MED & PEDS [address] [place] [address] Delmer Dunlap MD [address] [place] [address] Results Social History Tobacco Use Types Packs/Day [...] encounter Miscellaneous Notes * Telephone Encounter - Taylor Bay RN - 06/25/2024 10:50 AM EDT TC to pt . RN explained that sodium level has improved. Please advise to continue with the samemanagement for now. Patient is to keep getting his weight check daily. If having more than 5 pound weight gain in a week to contact the office. Pt states that she actually talked pt into drinking prune juice and he lost just under 10 pounds since. RN also educated pt on signs and symptomsof abnormal weight loss. Pt vwife verbalized understanding and agreement with the plan of care. * Telephone Encounter - Taylor Bay RN - 06/25/2024 10:49 AM EDT ----- Message from Delmer Dunlap MD sent at 06/20/2024 4:46 PM EDT ----- Regarding: FW: FYI: elevated CO2, please review and advise Sodium level has improved. Please advise to continue with the same management for now. Patient is to keep getting his weight check daily. If having more than 5 pound weight gain in a week to contact the office ----- Message ----- From: Yaima Pereira RN Sent: 06/19/2024 3:43 PM EDT To: Delmer Dunlap MD Subject: FYI: elevated CO2, please review and advise Pt wears oxygen at home, per PCP notes, not more than 2 L NC . Critical labs resulting for elevated CO2, today's result= 39 (06/20/23) sent to PCP Dr. Dunlap forreview and advise. Carbon Dioxide Collected: 06/19/24 1210 Result status:Final Resulting lab:[facility] Reference range: (22 - 29 mmol/L) Value: 39 High Carbon Dioxide (22 - 29 mmol/L) 39 High 41 High 38 High ----- Message ----- From: Interface, Lab Results In Sent: 06/19/2024 2:48 PM EDT To: Delmer Dunlap MD documented in this encounter Plan of Treatment Upcoming Encounters Date Type Department Care Team (Late st Contact Info) Description 09/25/2024 11:30 AM EDT Office Visit [facility] MED & PEDS [address] [place] [address] Delmer Dunlap MD [address] [place] [address] documented as of this encounter Visit Diagnoses Not on filedocumented in this encounter Additional Health Concerns Assessment Noted Time PHQ-9 Depression Total Score: 0 03/31/19 10:07 AM EST documented as of this encounter Care Teams Sheet Fed Printer Relationship Specialty Start Date End Date Delmer Dunlap MD [address] [place] [address] PCP - General Internal Medicine 04/04/11 [facility] 03/18/24 documented as of this encounter
--- OUTSIDE RECORDS SUMMARY | 2024-06-26 17:24 | XMS_ITS | Encounter Summary ---
Author Organization [employer] Address [address] [facility] 7t [place] [address] Care Team Providers Care Beef Grader Name Role Phone Delmer Dunlap MD Primary Care Provider [phone] Encounter Details Date Type Department Care Team (Late st Contact Info) Description 01/23/2023 Telephone [facility] [address] [place] [address] Delmer Dunlap MD [address] [place] [address] Social History Tobacco Use Types Packs/Day Years [...] Description 09/25/2024 11:30 AM EDT Office Visit [facility] MED & PEDS [address] [place] [address] Delmer Dunlap MD [address] [place] [address] documented as of this encounter Visit Diagnoses Not on filedocumented in this encounter Care Teams Beef Grader Relationship Specialty Start Date End Date Delmer Dunlap MD [address] [place] [address] PCP - General Internal Medicine 04/04/11 [facility] 03/18/24 documented as of this encounter
--- OUTSIDE RECORDS SUMMARY | 2024-06-26 17:24 | XMS_ITS | Encounter Summary ---
Author Organization [employer] Address [address] [facility] 7t [place] [address] Care Team Providers Care Calender Tender Name Role Phone Delmer Dunlap MD Primary Care Provider [phone] Encounter Details Date Type Department Care Team ([facility] st Contact Info) Description 05/29/2024 Orders Only [facility] CH[facility] MED & PEDS [address] [place], [place] [phone] Delmer Dunlap MD [address] [place], [place] [phone] Hypernatremia (Primary Dx) Social History Tobacco Use Types [...] Upcoming Encounters Date Type Department Care Team ([facility] st Contact Info) Description 09/25/2024 11:30 AM EDT Office Visit [facility] MED & PEDS [address] [place] [address] Delmer Dunlap MD [address] [place] [address] documented as of this encounter Procedures Procedure Name Priority Date/Time Associated Diagnosis Comments BASIC METABOLIC PANEL Routine 06/19/2024 12:10 PM EDT Hypernatremia LIPID PANEL, STANDARD Routine 06/12/2024 12:03 PM EDT documented in this encounter Results * (ABNORMAL) Basic Metabolic Panel (06/19/2024 12:10 PM EDT) Sodium 144 135 - 145 mmol/L [facility] Potassium 4.3 3.3 - 5.1 mmol/L [facility] Chloride 97 96 - 108 mmol/L [facility] Carbon Dioxide 39(H) 22 - 29 mmol/L [facility] Anion Gap 12 12 - 20 [facility] Urea Nitrogen (BUN) 14 9 - 16 mg/dL [facility] Creatinine, Serum 1.01 0.5 - 1.4 mg/dL [facility] Estimated Glomerular Filt Rate >60 [facility] Comment:Chronic Kidney Disea se: Estimated GFR < 60 mL/min/[id number] Kidney Disease: Estimated GFR < 15 mL/min/1.73m2 Glucose 174(H) 60 - 115 mg/dL [facility] Calcium 8.7 8.4 - 10.2 mg/dL [facility] Blood Venous blood specimen / Unknown 06/19/2024 12:10 PM EDT 06/19/2024 2:13 PM EDT us Delmer Dunlap MD LAB BLOOD ORDERABLES Final Result Performing Organization Address City[facility]/ZIP Co de Phone Number [facility] [address] [place] [address] [phone] * Lipid Panel, Standard (06/12/2024 12:03 PM EDT) Triglycerides 89 <150 mg/dL [facility] Comment:Desirable Triglyceri de: less than 150 mg/dLBorderline High Triglyceride 150-199 mg/dLHigh Triglyceride: 200-499 mg/dLVery High Triglyceride: greater than or equal to 5OO mg/dL Cholesterol 124 <200 mg/dL [facility] Comment:Desirable Cholestero l: less than 200 mg/dLBorderline High Cholesterol: 200-239 mg/dLHigh Cholesterol: greater than 239 mg/dL LDL Cholesterol Calculated 59 <100 mg/dL [facility] Comment:Desirable LDL: less than 100 mg/dLNear Optimal/Above Optimal LDL: 110- 129 mg/dLBorderline High LDL: 130-159 mg/dLHigh LDL: 160-189 mg/dLVery High LDL: greater than or equal to 190 mg/dL HDL Cholesterol 48 >40 mg/dL [facility] Comment:Desirable HDL: great er than 40 mg/dL Note: This HDL assay may give artificially low results in patients with liver disease. 06/12/2024 12:0 3 PM EDT 06/12/2024 2:37 PM EDT us Generic External Data Provider LAB BLOOD ORDERAB LES Final Result [facility] [address] [place] [address] [phone] documented in this encounter Visit Diagnoses Diagnosis Hypernatremia- Primary Hyperosmolality and/or hypernatremia documented in this encounter Additional Health Concerns Assessment Noted Time PHQ-9 Depression Total Score: 0 03/31/19 10:07 AM EST documented as of this encounter Care Teams Calender Tender Relationship Specialty Start Date End Date Delmer Dunlap MD [address] [place] [address] PCP - General Internal Medicine 04/04/11 [facility] 03/18/24 documented as of this encounter
--- OUTSIDE RECORDS SUMMARY | 2024-06-26 17:24 | XMS_ITS | Encounter Summary ---
Author Organization [facility] [employer] [facility] Address [address] [place] [address] Care Team Providers Care Roustabout Name Role Phone Delmer Dunlap MD Primary Care Provider [phone]- [phone] Encounter Details Date Type Department Care Team ([facility] Contact Info) Description 11/24/2022 [facility] Information Management [address] [place], [place] [phone] Delmer Dunlap MD [address] [place] [address] Social History Tobacco Use Types Packs/Day Years [...] Department Care Team (Late Contact Info) Description 09/25/2024 11:30 AM EDT Office Visit [facility] CHC MED & PEDS [address] [place] [address] Delmer Dunlap MD [address] [place] [address] documented as of this encounter Visit Diagnoses Not on filedocumented in this encounter Care Teams Roustabout Relationship Specialty Start Date End Date Delmer Dunlap MD [address] [place] [address] PCP - General Internal Medicine 04/04/11 [facility] 03/18/24 documented as of this encounter
--- OUTSIDE RECORDS SUMMARY | 2024-06-26 17:24 | XMS_ITS | Encounter Summary ---
Author Organization [employer] Address 75 [facility] 7 [place] [address] Care Team Providers Care Customer Experience Retail Clerk Name Role Phone Delmer Dunlap MD Primary Care Provider [phone]- [phone] Reason for Visit * Reason Onset Date Comments FYI 11/03/2022 Encounter Details Date Type Department Care Team ([facility] st Contact Info) Description 11/03/[address] [facility] CH[facility] MED & PEDS [address] [place] [address] Delmer Dunlap MD [address] [place] [address] FYI Social History Tobacco Use Types Packs/Day [...] PM EDT Tc from [facility] at [facility] calling to inform PCP patient is starting intermediate, PT and OT 11/03/22. documented in this encounter Plan of Treatment Upcoming Encounters Date Type Department Care Team (Late st Contact Info) Description 09/25/2024 11:30 AM EDT Office Visit [facility] MED & PEDS [address] [place] [address] Delmer Dunlap MD [address] [place] [address] documented as of this encounter Visit Diagnoses Not on filedocumented in this encounter Care Teams Customer Experience Retail Clerk Relationship Specialty Start Date End Date Delmer Dunlap MD [address] [place] [address] PCP - General Internal Medicine 04/04/11 [facility] 03/18/24 documented as of this encounter
--- OUTSIDE RECORDS SUMMARY | 2024-06-26 17:24 | XMS_ITS | Encounter Summary ---
Author Organization [facility] [employer] [facility] Address [address] [place] [address] Care Team Providers Care Director Of Enterprise Architecture Name Role Phone Delmer Dunlap MD Primary Care Provider [phone]- [phone] Encounter Details Date Type Department Care Team (Late st Contact Info) Description 03/14/2022 Orders Only [facility] MED & PEDS [address] [place] [address] Magdalena Avila LPN Social History Tobacco Use [...] Description 09/25/2024 11:30 AM EDT Office Visit [facility] MED & PEDS [address] [place] [address] Delmer Dunlap MD [address] [place] [address] documented as of this encounter Visit Diagnoses Not on filedocumented in this encounter Care Teams Director Of Enterprise Architecture Relationship Specialty Start Date End Date Delmer Dunlap MD [address] [place] [address] PCP - General Internal Medicine 04/04/11 [facility] 03/18/24 documented as of this encounter
--- OUTSIDE RECORDS SUMMARY | 2024-06-26 17:24 | XMS_ITS | Encounter Summary ---
Author Organization [employer] Address [address] [facility] 7t [place] [address] Care Team Providers Care Sample Selector Name Role Phone Delmer Dunlap MD Primary Care Provider [phone] [phone] Reason for Visit * Reason Comments Med Refill Encounter Details Date Type Department Care Team ([facility] Contact Info) Description 05/28/2023 Refill [facility] MED & PEDS [address] [place], [place] [phone] Delmer Dunlap MD [address] [place] [address] Social History Tobacco Use Types Packs/Day Years [...] Description 09/25/2024 11:30 AM EDT Office Visit [facility] MED & PEDS [address] [place] [address] Delmer Dunlap MD [address] [place] [address] documented as of this encounter Visit Diagnoses Not on filedocumented in this encounter Care Teams Sample Selector Relationship Specialty Start Date End Date Delmer Dunlap MD [address] [place] [address] PCP - General Internal Medicine 04/04/11 [facility] 03/18/24 documented as of this encounter
--- OUTSIDE RECORDS SUMMARY | 2024-06-26 17:24 | XMS_ITS | Encounter Summary ---
Author Organization [facility] [employer] [facility] Address [address] [place] [address] Care Team Providers Care Certified Recreational Therapist Name Role Phone Delmer Dunlap MD Primary Care Provider [phone]- [phone] Encounter Details Date Type Department Care Team (Late Contact Info) Description 03/23/2022 Orders Only [facility] MEDICINE [address] [place] [address] Delmer Dunlap MD [address] [place] [address] Social History Tobacco Use Types Packs/Day Years [...] Description 09/25/2024 11:30 AM EDT Office Visit [facility] CHC MED & PEDS [address] [place] [address] Delmer Dunlap MD [address] [place] [address] documented as of this encounter Visit Diagnoses Not on filedocumented in this encounter Care Teams Certified Recreational Therapist Relationship Specialty Start Date End Date Delmer Dunlap MD [address] [place] [address] PCP - General Internal Medicine 04/04/11 [facility] 03/18/24 documented as of this encounter
--- OUTSIDE RECORDS SUMMARY | 2024-06-26 17:24 | XMS_ITS | Encounter Summary ---
Author Organization [employer] Address [address] [facility] 7t [place] [address] Care Team Providers Care Dolly Operator Name Role Phone Delmer Dunlap MD Primary Care Provider [phone] Encounter Details Date Type Department Care Team ([facility] st Contact Info) Description 03/11/2024 Telephone [facility] CHC MED & PEDS [address] [place], [place] [phone] Delmer Dnulap MD [address] [place], [place] [phone] Social History Tobacco Use Types Packs/Day Years [...] to inform pt is currently admitted at [facility]. Advices to contact pcp office once discharged. documented in this encounter Plan of Treatment Upcoming Encounters Date Type Department Care Team ([facility] st Contact Info) Description 09/25/2024 11:30 AM EDT Office Visit [facility] CH[facility] MED & PEDS [address] [place] [address] Delmer Dunlap MD [address] [place] [address] documented as of this encounter Visit Diagnoses Not on filedocumented in this encounter Care Teams Dolly Operator Relationship Specialty Start Date End Date Delmer Dunlap MD [address] [place] [address] PCP - General Internal Medicine 04/04/11 [facility] 03/18/24 documented as of this encounter
--- OUTSIDE RECORDS SUMMARY | 2024-06-26 17:24 | XMS_ITS | Encounter Summary ---
Author Organization [employer] Address 75 [facility] 7 [place] [address] Care Team Providers Care Rn Documentation Name Role Phone Delmer Dunlap MD Primary Care Provider +1- [phone] Reason for Visit * Reason Onset Date Comments FYI 11/30/2022 Encounter Details Date Type Department Care Team ([facility] st Contact Info) Description 11/30/2022 Telephone [facility] CHC MED & PEDS [address] [place] [address] Delmer Dunlap MD [address] [place] [address] FYI Social History Tobacco Use Types Packs/Day [...] as FYI. * Telephone Encounter - Katie Dawkins - 11/30/2022 3:32 PM EDT Tc from [place] at [facility] calling to inform PCP that pt has gained 2.2 lbs in one day. documented in this encounter Plan of Treatment Upcoming Encounters Date Type Department Care Team (Late st Contact Info) Description 09/25/2024 11:30 AM EDT Office Visit [facility] MED & PEDS [address] [place] [address] Delmer Dunlap MD [address] [place] [address] documented as of this encounter Visit Diagnoses Not on filedocumented in this encounter Care Teams Rn Documentation Relationship Specialty Start Date End Date Delmer Dunlap MD [address] [place] [address] PCP - General Internal Medicine 04/04/11 [facility] 03/18/24 documented as of this encounter
--- OUTSIDE RECORDS SUMMARY | 2024-06-26 17:24 | XMS_ITS | Encounter Summary ---
Author Organization [employer] Address 75 [facility] 7 [place] [address] Care Team Providers Care Risk Management Manager Name Role Phone Delmer Dunlap MD Primary Care Provider [phone]- [phone] Reason for Visit * Reason Onset Date Comments Lab Orders 05/05/2022 Encounter Details Date Type Department Care Team (Late st Contact Info) Description 05/05/2022 Telephone [facility] [address] [place] [address] Delmer Dunlap MD [address] [place] [address] Lab Orders Social History Tobacco Use Types [...] ( beginning of June) Call to [facility]. Advised of [facility] lab hours. She verbalizes understanding and agrees. [...] for blood work, Please contact pt at [phone] documented in this encounter Plan of Treatment Upcoming Encounters Date Type Department Care Team (Late st Contact Info) Description 09/25/2024 11:30 AM EDT Office Visit [facility] MED & PEDS [address] [place] [address] Delmer Dunlap MD [address] [place] [address] documented as of this encounter Visit Diagnoses Not on filedocumented in this encounter Care Teams Risk Management Manager Relationship Specialty Start Date End Date Delmer Dunlap MD [address] [place] [address] PCP - General Internal Medicine 04/04/11 [facility] 03/18/24 documented as of this encounter
--- OUTSIDE RECORDS SUMMARY | 2024-06-26 17:24 | XMS_ITS | Encounter Summary ---
Author Organization [facility] [employer] [facility] Address [address] [place] [address] 7 [place] [address] Care Team Providers Care Real Estate Professor Name Role Phone Delmer Dunlap MD Primary Care Provider [phone]- [phone] Encounter Details Date Type Department Care Team (Late st Contact Info) Description 11/16/2022 Orders Only [facility] MED & PEDS [address] [place] [address] Delmer Dunlap MD [address] [place] [address] Congestive heart failure, unspecified HF chronicity, unspecified [...] Description 09/25/2024 11:30 AM EDT Office Visit [facility] MED & PEDS [address] [place] [address] Delmer Dunlap MD [address] [place] [address] Scheduled Orders Name Type Priority Associated Diagnoses Orde r Schedule Basic Metabolic Panel Lab Routine Congestive heart failure, unspecified HF chronicity, unspecified heart failure type (CMS/HCC) Expected: 11/16/2022 (Approximate), Expires: 11/17/2023 documented as of this encounter Visit Diagnoses Diagnosis Congestive heart failure, unspecified HF chronicity, unspecified heart failure type (CMS/HCC)- Primary documented in this encounter Care Teams Real Estate Professor Relationship Specialty Start Date End Date Delmer Dunlap MD [address] [place] [address] PCP - General Internal Medicine 04/04/11 [facility] 03/18/24 documented as of this encounter
--- OUTSIDE RECORDS SUMMARY | 2024-06-26 17:24 | XMS_ITS | Encounter Summary ---
Author Organization [employer] Address 75 [facility] 7t [place] [address] Care Team Providers Care Feed Mill Tender Name Role Phone Delmer Dunlap MD Primary Care Provider [phone] Reason for Visit * Reason Comments Med Refill Encounter Details Date Type Department Care Team ([facility] st Contact Info) Description 06/25/2023 Refill [facility] MEDICINE [address] [place] [address] Verónica Mckenna MD [address] [place] [address] Social History Tobacco Use Types Packs/Day Years [...] Description 09/25/2024 11:30 AM EDT Office Visit [facility] MED & PEDS [address] [place] [address] Delmer Dunlap MD [address] [place] [address] documented as of this encounter Visit Diagnoses Not on filedocumented in this encounter Care Teams Feed Mill Tender Relationship Specialty Start Date End Date Delmer Dunlap MD [address] [place] [address] PCP - General Internal Medicine 04/04/11 [facility] 03/18/24 documented as of this encounter
--- OUTSIDE RECORDS SUMMARY | 2024-06-26 17:24 | XMS_ITS | Clinical Summary ---
Author Organization [employer] Address [address] [place] [address] 7[address] [place] [address] Care Team Providers Care Counselor Education Professor Name Role Phone Delmer Dunlap MD Primary Care Provider +1- [phone] Allergies No known active allergies Medications ammonium lactate (Lac-Hydrin) 12 % lotion Use topically BID in dry skin 2 Active nystatin (Nystop) 040164 UNIT/GM powder apply by topical route 2 [...] tabletIndication s:Atherosclerosi s of coronary artery of nikolski heart without angina pectoris, unspecified vessel or [...] 90 tablet 1 5 Active nystatin (Mycostatin) 825996 UNIT/GM powderIndication s:Intertrigo Apply topically 2 times [...] fracture of distal end of radius 09/30/19 Atherosclerosis of coronary artery 05/18/2011 Congestive heart failure 04/19/2011 Hypertensive heart disease without congestive he art failure 04/19/2011 Encounters Date Type Department Care Team Description 06/25/2024 Telephone [facility] [address] [place] [address] Delmer Dunlap MD Results 06/19/2024 Telephone [facility] [address] [place] [address] Yaima Pereira RN abnormal CO2 06/12/2024 11:30 AM EDT Office Visit [facility] [address] [place] [address] Delmer Dunlap MD Chronic heart failure, unspecified heart failure type (CMS/HCC) (Primary Dx); Other iron deficiency anemia; Hypercholesterolemia ; Aortic valve stenosis, etiology of cardiac valve disease unspecified; Paroxysmal atrial fibrillation (CMS/HCC) 06/12/2024 Telephone [facility] [address] [place] [address] Delmer Dunlap MD critical lab 06/12/2024 Telephone [facility] [address] [place] [address] Delmer Dunlap MD Durable Medical Equipment 06/12/2024 Travel 06/05/2024 Patient Outreach [facility] [address] [place] [phone] Delmer Dunlap MD Pre-visit Planning (Pre visit planning LVM ) 05/29/2024 Orders Only [facility] [address] [place] [address] Delmre Dunlap MD Hypernatremia (Primary Dx) 05/28/2024 Telephone [facility] [address] [place] [address] Delmer Dunlap MD Call Back Request (/) 05/16/2024 Population Health Risk Score [facility] (C3) Department [address] [place] [phone] Provider, Population Health Generic 05/08/2024 Refill [facility] [address] [place] [address] Luis Manuel Bowen MD Recurrent major depressive disorder, in partial remission (CMS/HCC) 04/14/2024 Refill [facility] [address] [place] [address] Delmer Dunlap MD 04/12/2024 Refill [facility] [address] [place] [address] Delmer Dunlap MD 04/01/2024 Telephone [facility] [address] [place] [address] Madyson Rodriguez, RN Results 03/31/2024 10:15 AM EST Office Visit [facility] [address] [place] [address] Delmer Dunlap MD Hypertensive heart disease without congestive heart failure (Primary Dx); Chronic heart failure, unspecified heart failure type (CMS/HCC); Slow transit constipation; Intertrigo; Other iron deficiency anemia; Acute renal failure, unspecified acute renal failure type (CMS/HCC) 03/31/2024 Travel from Last 3 Months Immunizations Name Administration [...] 06/12/2024 11:23 AM EDT Plan of Treatment Upcoming Encounters Date Type Department Care Team ([facility] st Contact Info) Description 09/25/2024 11:30 AM EDT Office Visit [facility] [address] [place] [address] Delmer Dunlap MD [address] [place] [address] Health Maintenance Due Date Last Done Comments [...] 03/31/2024 Tobacco Screening 06/12/2025 06/12/2024 Lipid Panel 06/12/2029 06/12/2024, 01/14/2021 HIB Vaccines Aged Out No longer [...] PANEL, STANDARD Routine 06/12/2024 12:03 PM EDT CBC WITH AUTO DIFFERENTIAL Routine 06/12/2024 12:03 PM EDT Other iron deficiency anemia COMPREHENSIVE METABOLIC PANEL Routine 06/12/2024 12:03 PM EDT Chronic heart failure, unspecified heart failure type (CMS/HCC) AMB REFERRAL TO HEMATOLOGY / ONCOLOGY Routine 04/04/2024 Other iron deficiency anemia CBC WITH AUTO DIFFERENTIAL Routine 03/31/2024 11:17 AM EST Chronic heart failure, unspecified heart failure type (CMS/HCC) BASIC METABOLIC PANEL Routine 03/31/2024 11:15 AM EST Chronic heart failure, unspecified heart failure type (CMS/HCC) from Last 3 Months Results * (ABNORMAL) Basic Metabolic Panel (06/19/2024 12:10 PM EDT) Only the most recent of2 resultswithin the time period is included. Sodium 144 135 - 145 mmol/L [facility] Potassium 4.3 3.3 - 5.1 mmol/L [facility] Chloride 97 96 - 108 mmol/L [facility] Carbon Dioxide 39(H) 22 - 29 mmol/L [facility] Anion Gap 12 12 - 20 [facility] Urea Nitrogen (BUN) 14 9 - 16 mg/dL [facility] Creatinine, Serum 1.01 0.5 - 1.4 mg/dL [facility] Estimated Glomerular Filt Rate >60 [facility] Comment:Chronic Kidney Disea se: Estimated GFR < 60 mL/min/1.85c7Mckayt Kidney Disease: Estimated GFR < 15 mL/min/1.73m2 Glucose 174(H) 60 - 115 mg/dL [facility] Calcium 8.7 8.4 - 10.2 mg/dL [facility] Blood Venous blood specimen / Unknown 06/19/2024 12:10 PM EDT 06/19/2024 2:13 PM EDT us Delmer Dunlap MD LAB BLOOD ORDERABLES Final Result [facility] [address] [place] [address] [phone] * (ABNORMAL) CBC auto differential (06/12/2024 12:03 PM EDT) Only the most recent of2 resultswithin the time period is included. White Blood Count 3.6(L) 4.8 - 10.8 X10*3/uL [facility] Red Blood Count 3.26(L) 4.60 - 5.80 X10*6/uL [facility] Hemoglobin 9.2(L) 14.0 - 18.0 g/dl [facility] Hematocrit 29.6(L) 42.0 - 52.0 % [facility] Mean Corpuscular Volume 90.8 80.0 - 98.0 fL [facility] Mean Corpuscular Hemoglobin 28.2 27.0 - 33.0 pg [facility] Mean Corpuscular HGB Conc 31.1 31.0 - 36.0 g/dl [facility] Red Cell Distribution Width 14.8 11.0 - 16.0 % [facility] Platelet Count 155(L) 160 - 400 X10*3/uL [facility] Mean Platelet Volume 11.4 9.4 - 12.4 fL [facility] Neutrophils Percent Auto 69.0 45 - 73 % [facility] Imm Gran Pct Auto 0.6(H) 0.0 - 0.4 % [facility] Lymphocytes Percent Auto 16.3(L) 20 - 40 % [facility] Monocytes Percent Auto 11.8(H) 2 - 11 % [facility] Eosinophils Percent Auto 2.0 0 - 4 % [facility] Basophils Percent Auto 0.3 0 - 2 % [facility] NRBC Pct Auto 0.0 0.0 - 0.2 /100WBC [facility] Neutrophils Absolute Auto 2.5 2.0 - 8.3 x10*3/uL [facility] Imm Gran Abs Auto 0.02 0.00 - 0.03 X10*3/uL [facility] Lymphocytes Absolute Auto 0.6(L) 1.2 - 4.9 X10*3/uL [facility] Monocytes Absolute Auto 0.4 0.1 - 1.2 X10*3/uL [facility] Eosinophils Absolute Auto 0.1 0.0 - 0.4 X10*3/uL [facility] Basophils Absolute Auto 0.0 0.0 - 0.2 X10*3/uL [facility] NRBC Abs Auto 0.000 0.0 - 0.012 X10*3/uL [facility] Blood Venous blood specimen / Unknown 06/12/2024 12:03 PM EDT 06/12/2024 2:37 PM EDT us Delmer Dunlap MD LAB BLOOD ORDERABLES Final Result [facility] [address] [place] [address] [phone] * Lipid Panel, Standard (06/12/2024 12:03 PM EDT) Triglycerides 89 <150 mg/dL [facility] Comment:Desirable Triglyceri de: less than 150 mg/dLBorderline High Triglyceride 150-199 mg/dLHigh Triglyceride: 200-499 mg/dLVery High Triglyceride: greater than or equal to 5OO mg/dL Cholesterol 124 <200 mg/dL [facility] Comment:Desirable Cholestero l: less than 200 mg/dLBorderline High Cholesterol: 200-239 mg/dLHigh Cholesterol: greater than 239 mg/dL LDL Cholesterol Calculated 59 <100 mg/dL [facility] Comment:Desirable LDL: less than 100 mg/dLNear Optimal/Above Optimal LDL: 110- 129 mg/dLBorderline High LDL: 130-159 mg/dLHigh LDL: 160-189 mg/dLVery High LDL: greater than or equal to 190 mg/dL HDL Cholesterol 48 >40 mg/dL [facility] Comment:Desirable HDL: great er than 40 mg/dL Note: This HDL assay may give artificially low results in patients with liver disease. 06/12/2024 12:0 3 PM EDT 06/12/2024 2:37 PM EDT us Generic External Data Provider LAB BLOOD ORDERAB LES Final Result [facility] [address] [place] [address] [phone] * (ABNORMAL) Comprehensive Metabolic Panel (06/12/2024 12:03 PM EDT) Sodium 146(H) 135 - 145 mmol/L [facility] Potassium 4.1 3.3 - 5.1 mmol/L [facility] Chloride 96 96 - 108 mmol/L [facility] Carbon Dioxide 41(HH) 22 - 29 mmol/L [facility] Comment:Critical value for t est(s): BIC Results called to and readback by: ANDREW Caraballo Person calling: [employer]umen Date: 06/12/24Time: 1545 Anion Gap 13 12 - 20 [facility] Urea Nitrogen (BUN) 16 9 - 16 mg/dL [facility] Creatinine, Serum 1.08 0.5 - 1.4 mg/dL [facility] Estimated Glomerular Filt Rate >60 [facility] Comment:Chronic Kidney Disea se: Estimated GFR < 60 mL/min/1.16e5Rwpcrh Kidney Disease: Estimated GFR < 15 mL/min/1.73m2 Glucose 93 60 - 115 mg/dL [facility] Calcium 8.9 8.4 - 10.2 mg/dL [facility] Bilirubin, Total 0.7 0.0 - 1.0 mg/dL [facility] Aspartate Amino Transferase 28 5 - 37 U/L [facility] Alanine Aminotransferase 9 0 - 40 U/L [facility] Total Protein 6.5 6.5 - 8.0 g/dL [facility] Albumin Level 3.6 3.5 - 5.0 g/dL [facility] Alkaline Phosphatase 87 39 - 117 U/L [facility] Blood Venous blood specimen / Unknown 06/12/2024 12:03 PM EDT 06/12/2024 2:37 PM EDT us Delmer Dunlap MD LAB BLOOD ORDERABLES Final Result Performing Organization Address City/State/[facility] Co de Phone Number [facility] [address] [place] [address] [phone] * Referral to Hematology / Oncology (04/04/2024) us Delmer Dunlap MD OUTPATIENT REFERRAL ORDERAB LES Final Result from Last 3 [place] [id number] [facility] Care Teams Counselor Education Professor Relationship Specialty Start Date End Date Delmer Dunlap MD [address] [place] [phone] PCP - General Internal Medicine 04/04/11 [facility] 03/18/24
--- OUTSIDE RECORDS SUMMARY | 2024-06-26 17:24 | XMS_ITS | Encounter Summary ---
Author Organization [employer] Address [address] [facility] 7 [place] [address] Care Team Providers Care Fourdrinier Wire Weaver Name Role Phone Delmer Dunlap MD Primary Care Provider [phone] [phone] Reason for Visit * Reason Onset Date Comments Hospital Follow-up 03/18/2024 Encounter Details Date Type Department Care Team ([facility] st Contact Info) Description 03/18/2024 Telephone [facility] [address] [place] [address] Delmer Dunlap MD [address] [place] [address] [phone] Hospital Follow-up Social History Tobacco Use Types [...] from pt requesting a HDF appt. Hospital: [facility] Date of admission: 03/02/24 Discharge date: 03/17/24 Diagnosed: Chest pain, atrial fibrillation, hypercarbia. *Send message to [place] Clinical Care Coordinators documented in this encounter Plan of Treatment Upcoming Encounters Date Type Department Care Team (Late st Contact Info) Description 09/25/2024 11:30 AM EDT Office Visit [facility] [address] [place] [address] Delmer Dunlap MD [address] [place] [address] documented as of this encounter Visit Diagnoses Not on filedocumented in this encounter Care Teams Fourdrinier Wire Weaver Relationship Specialty Start Date End Date Delmer Dunlap MD [address] [place] [address] PCP - General Internal Medicine 04/04/11 [facility] 03/18/24 documented as of this encounter
--- OUTSIDE RECORDS SUMMARY | 2024-06-26 17:24 | XMS_ITS | Encounter Summary ---
Author Organization [employer] Address [address] [facility] 7t [place] [address] Care Team Providers Care International Trade Analyst Name Role Phone Delmer Dunlap MD Primary Care Provider [phone] Reason for Visit * Reason Comments Med Refill Encounter Details Date Type Department Care Team ([facility] Contact Info) Description 06/20/2023 Refill [facility] [address] [place], [place] [phone] Delmer Dunlap MD [address] [place] [address] Social History Tobacco Use Types Packs/Day Years [...] Description 09/25/2024 11:30 AM EDT Office Visit [facility] [address] [place] [address] Delmer Dunlap MD [address] [place] [address] documented as of this encounter Visit Diagnoses Not on filedocumented in this encounter Care Teams International Trade Analyst Relationship Specialty Start Date End Date Delmer Dunlap MD [address] [place] [address] PCP - General Internal Medicine 04/04/11 [facility] 03/18/24 documented as of this encounter
--- OUTSIDE RECORDS SUMMARY | 2024-06-26 17:24 | XMS_ITS | Encounter Summary ---
Author Organization [employer] Address [address] [place] [address] 7 [place] [address] Care Team Providers Care Studio Associate Name Role Phone Delmer Dunlap MD Primary Care Provider [phone]- [phone] Encounter Details Date Type Department Care Team (Late st Contact Info) Description 06/05/2022 Orders Only [facility] [address] [place] [address] Delmer Dunlap MD [address] [place] [address] Social History Tobacco Use Types Packs/Day Years [...] Description 09/25/2024 11:30 AM EDT Office Visit [facility] [address] [place] [address] Delmer Dunlap MD [address] [place] [address] documented as of this encounter Visit Diagnoses Not on filedocumented in this encounter Care Teams Studio Associate Relationship Specialty Start Date End Date Delmer Dunlap MD [address] [place] [phone] PCP - General Internal Medicine 04/04/11 [facility] 03/18/24 documented as of this encounter
--- OUTSIDE RECORDS SUMMARY | 2024-06-26 17:24 | XMS_ITS | Encounter Summary ---
Author Organization [employer] Address [address] [facility] 7t [place] [address] Care Team Providers Care Osteopathic Medicine Teacher Name Role Phone Delmer Dunlap MD Primary Care Provider +1- [phone] Reason for Visit * Reason Comments Med Refill Encounter Details Date Type Department Care Team ([facility] Contact Info) Description 02/22/2023 Refill [facility] [address] [place], [place] [phone] Delmer Dunlap MD [address] [place] [address] Social History Tobacco Use Types Packs/Day Years [...] [facility] [address] [place] [address] Delmer Dunlap MD [address] [place] [address] documented as of this encounter Visit Diagnoses Not on filedocumented in this encounter Care Teams Osteopathic Medicine Teacher Relationship Specialty Start Date End Date Delmer Dunlap MD [address] [place] [address] PCP - General Internal Medicine 04/04/11 [facility] 03/18/24 documented as of this encounter
--- OUTSIDE RECORDS SUMMARY | 2024-06-26 17:24 | XMS_ITS | Encounter Summary ---
Author Organization [employer] [facility] Address [address] [place] [address] [address] [place] [address] Care Team Providers Care Rail Car Repair Carman Name Role Phone Delmer Dunlap MD Primary Care Provider +1- [phone] Reason for Visit * Reason Comments Med Refill Encounter Details Date Type Department Care Team (Late st Contact Info) Description 03/20/2022 Refill [facility] [address] [place] [address] Delmer Dunlap MD [address] [place] [address] Atherosclerosis of coronary artery of quechan heart without angina pectoris, unspecified vessel or [...] Description 09/25/2024 11:30 AM EDT Office Visit [facility] [address] [place] [address] Delmer Dunlap MD [address] [place] [address] documented as of this encounter Visit Diagnoses Diagnosis Atherosclerosis of coronary artery of quechan heart without angina pectoris, unspecified vessel or lesion type- Primary Recurrent major depressive disorder, in partial remission (CMS/[facility]) Other iron deficiency anemia documented in this encounter Care Teams Rail Car Repair Carman Relationship Specialty Start Date End Date Delmer Dunlap MD [address] [place] [address] PCP - General Internal Medicine 04/04/11 [employer] 03/18/24 documented as of this encounter
== END 2024-06-26 15:51 | disposition home or self-care (01) ==
LOC: HO.HCS 14:43
PROVIDERS: PCP Internal Medicine; Visit Provider Internal Medicine Cardiovascular Disease
DX: I48.19 Other persistent atrial fibrillation (principal); I50.814 Right heart failure due to left heart failure; I25.10 Atherosclerotic heart disease of native coronary artery without angina pectoris; Z95.2 Presence of prosthetic heart valve
CPT/HCPCS: 93010; 99214; G2211

== ENCOUNTER → 2024-06-26 14:42 | Outpatient (BNVA) | payer MEDICARE, MEDICAID, SELFPAY | PROVIDERS: PCP Internal Medicine; Visit Provider Internal Medicine Cardiovascular Disease | DX: I48.19 Other persistent atrial fibrillation (principal); I25.10 Atherosclerotic heart disease of native coronary artery without angina pectoris; I50.814 Right heart failure due to left heart failure; I45.10 Unspecified right bundle-branch block; R94.31 Abnormal electrocardiogram [ECG] [EKG]; Z95.2 Presence of prosthetic heart valve | CPT/HCPCS: 93005; 99212 ==